=== PATIENT | male | born 1960 | race Caucasian/White ===

== ENCOUNTER 2016-04-23 20:09 | Emergency (ER) | payer MEDICARE, MEDICAID ==
[2016-04-23] MEDS ORDERED: KETOROLAC 60 MG/2 ML VIAL IVP STA (20:39)
[2016-04-23] MEDS ORDERED: ONDANSETRON 4 MG/2 ML VIAL IVP STA (20:39)
[2016-04-23] MEDS ORDERED: SODIUM CHLORIDE 0.9% 1,000 ML IV ONE (20:39)
[2016-04-23] MEDS ORDERED: MAG HYDROX/AL HYDROX/SIMETH 30 ML UDC PO STA (20:40)
[2016-04-23] MEDS ORDERED: MAG HYDROX/AL HYDROX/SIMETH 30 ML UDC ONE (20:49)
[2016-04-23] MEDS ORDERED: KETOROLAC 30 MG/ML VIAL ONE (20:49)
[2016-04-23] MEDS ORDERED: ONDANSETRON 4 MG/2 ML VIAL ONE (20:49)
[2016-04-23] MEDS ORDERED: IOPAMIDOL-300 100 ML VIAL IVP ONE (21:51)
[2016-04-23] MEDS ORDERED: DICYCLOMINE 10 MG CAPSULE PO STA (23:03)
[2016-04-23] MEDS ORDERED: ONDANSETRON ODT 4 MG Prepack 2 TL PRN (23:03)
[2016-04-23] MEDS ORDERED: DICYCLOMINE 10 MG CAPSULE PO ONE (23:07)
[2016-04-23] MEDS ORDERED: ONDANSETRON ODT 4 MG Prepack 2 TL ONE (23:07)
== END 2016-04-23 23:22 | disposition home or self-care (01) ==
DX: A09 Infectious gastroenteritis and colitis, unspecified (principal); K21.9 Gastro-esophageal reflux disease without esophagitis; I10 Essential (primary) hypertension; E11.9 Type 2 diabetes mellitus without complications; E78.00 Pure hypercholesterolemia, unspecified; Z79.4 Long term (current) use of insulin; Z79.82 Long term (current) use of aspirin
CPT/HCPCS: 36415; 74177; 80053; 82009; 83690; 83735; 84484; 85025; 93005; 93010; 96374; 96375; 99283; 99284; A9270; Q9967

== ENCOUNTER 2016-04-25 12:18 | Emergency (ER) | payer MEDICARE, MEDICAID | END 2016-04-25 14:15 | disposition home or self-care (01) | DX: R19.7 Diarrhea, unspecified (principal); E11.9 Type 2 diabetes mellitus without complications; I10 Essential (primary) hypertension; E78.00 Pure hypercholesterolemia, unspecified; Z79.4 Long term (current) use of insulin; Z79.82 Long term (current) use of aspirin ==

== ENCOUNTER 2016-04-27 05:55 | Day surgery (SDC) | payer MEDICARE, MEDICAID ==
[2016-04-27] MEDS ORDERED: LACTATED RINGERS 1,000 ML IV ONE ×2 (06:55→07:45)
[2016-04-27] MEDS ORDERED: DEXTROSE 50% ABBOJECT 25 GM/50 ML SYRINGE ONE (06:57)
[2016-04-27] MEDS ORDERED: MIDAZOLAM 2 MG/2 ML VIAL IVP ONE (07:30)
[2016-04-27] MEDS ORDERED: fentaNYL 250 MCG/5 ML VIAL IVP ONE (07:30)
== END 2016-04-27 05:56 | disposition home or self-care (01) ==
PROC: 0DBL8ZZ Excision of Transverse Colon, Via Natural or Artificial Opening Endoscopic (ICD-10-PCS; 2016-04-27)
PROC: 0DBM8ZZ Excision of Descending Colon, Via Natural or Artificial Opening Endoscopic (ICD-10-PCS; 2016-04-27)
PROC: 0DBN8ZZ Excision of Sigmoid Colon, Via Natural or Artificial Opening Endoscopic (ICD-10-PCS; 2016-04-27)
PROC: 0DBH8ZZ Excision of Cecum, Via Natural or Artificial Opening Endoscopic (ICD-10-PCS; 2016-04-27)
PROC: 0DBB8ZX Excision of Ileum, Via Natural or Artificial Opening Endoscopic, Diagnostic (ICD-10-PCS; 2016-04-27)
PROC: 0DBE8ZX Excision of Large Intestine, Via Natural or Artificial Opening Endoscopic, Diagnostic (ICD-10-PCS; 2016-04-27)
PROC: 0DBP8ZX Excision of Rectum, Via Natural or Artificial Opening Endoscopic, Diagnostic (ICD-10-PCS; 2016-04-27)
PROC: 0DBK8ZZ Excision of Ascending Colon, Via Natural or Artificial Opening Endoscopic (ICD-10-PCS; principal; 2016-04-27 07:30)
DX: Z12.11 Encounter for screening for malignant neoplasm of colon (principal); D12.4 Benign neoplasm of descending colon; D12.5 Benign neoplasm of sigmoid colon; D12.3 Benign neoplasm of transverse colon; D12.0 Benign neoplasm of cecum; D12.2 Benign neoplasm of ascending colon; Z80.0 Family history of malignant neoplasm of digestive organs; Z87.891 Personal history of nicotine dependence
CPT/HCPCS: 45380; J3010; J7120

== ENCOUNTER 2016-05-06 21:17 | Emergency (ER) | payer MEDICARE, MEDICAID | END 2016-05-06 23:21 | disposition home or self-care (01) | DX: E11.65 Type 2 diabetes mellitus with hyperglycemia (principal); E11.51 Type 2 diabetes mellitus with diabetic peripheral angiopathy without gangrene; Z79.4 Long term (current) use of insulin; R23.3 Spontaneous ecchymoses; I10 Essential (primary) hypertension; M06.9 Rheumatoid arthritis, unspecified; Z79.82 Long term (current) use of aspirin ==

== ENCOUNTER 2016-10-28 15:30 | Outpatient (CLI) | payer MEDICARE, MEDICAID ==
--- NOTE | 2016-10-29 12:31 | XRAY Report ---
THREE VIEW LEFT FOOT: 10/28/2016 CLINICAL INDICATION: Pain. FINDINGS: AP, lateral, and oblique views of the left foot demonstrate no evidence of acute fracture or dislocation. Degenerative changes are seen in the interphalangeal joints. No radiopaque foreign eli dy is seen in the soft tissues. IMPRESSION: OSTEOARTHRITIS. NO EVIDENCE OF ACUTE FRACTURE. JOB #: [id number] EXT JOB #:[id number]
== END 2016-10-28 15:31 | disposition home or self-care (01) ==
LOC: DI.S 15:30
PROVIDERS: ATTEND Physician Assistant
DX: M19.072 Primary osteoarthritis, left ankle and foot (principal)

== ENCOUNTER 2017-09-18 21:08 | Emergency (ER) | payer MEDICARE, MEDICAID ==
--- NOTE | 2017-09-18 21:38 | ED Physician Documentation ---
History of Present Illness - Stated complaint Stated Complaint: HIGH BLOOD SUGARS - Chief complaint Chief Complaint: General - History obtained from History obtained from: Patient, Family - History of Present Illness Timing: Today - Additonal information Additional information: presents due to hyperglycemia noted incidentally on routine at-home check of blood sugar. Family (in ED present at bedside) and patient describe good adherence to his insulin dosing as well as diet; his blood sugars have been within target range recently until today. Blood sugar this morning was 95. This afternoon it was 395 and at 6:30 PM it was 409. Family contacted PMD's office and d/w on-call covering physician who recommended patient take 10 units of fast -acting insulin and go to ED. 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 denies: Generalized weakness, Confused, Altered mental status, Headache PD PAST MEDICAL HISTORY - Past Medical History Cardiovascular: Hypertension, High cholesterol, Other Respiratory: None Endocrine/Autoimmune: Type 2 diabetes GI: GERD, Chronic diarrhea : None HEENT: Other Psych: Depression, Claustrophobia Musculoskeletal: Osteoarthritis, Rheumatoid arthritis, Hemiplegia, Other Derm: None - Past Surgical History Past Surgical History: No Ortho: Other Neuro: Other - Present Medications Home Medications: Ambulatory Orders Medication Instructions Recorded Confirmed Omeprazole 20 mg ORAL QDAC 11/26/14 05/06/16 Atorvastatin Calcium 40 mg PO QPM 06/09/15 05/06/16 Aspirin 1 tab PO DAILY 02/13/16 05/06/16 Insulin Glargine,Hum.rec.anlog 90 unit SQ QDBREAKFAST 03/10/16 05/06/16 [Saranya Bunch] Furosemide [Lasix] 20 mg PO ONCE 05/06/16 05/06/16 - Allergies Allergies/Adverse Reactions: Allergies Allergy/AdvReac Type Severity Reaction Status Date / Time No Known Drug Allergies Allergy Verified 04/23/16 20:17 - Social History Does the pt smoke?: No Smoking Status: Never smoker Does the pt drink ETOH?: No Does the pt have substance abuse?: No - Immunizations Immunizations are current?: Yes - POLST Patient has POLST: No PD ED PE NORMAL - Vitals Vital signs reviewed: Yes - General General: Alert and oriented X 3, No acute distress, Well developed/nourished - Cardiac Cardiac: RRR, No murmur - Respiratory Respiratory: No respiratory distress, Clear bilaterally - Abdomen Abdomen: Soft, Non tender - Derm Derm: Normal color, Warm and dry - Extremities Extremities: No edema - Neuro Neuro: Alert and oriented X 3 Eye Opening: Spontaneous Motor: Obeys Commands Verbal: Oriented GCS Score: 15 Results - Vitals Vitals: Vital Signs - 24 hr 09/18/17 09/18/17 21:11 23:33 Temperature 36.0 C L Heart Rate 57 L 56 L Respiratory 18 18 Rate Blood Pressure 161/72 H 141/81 H O2 Saturation 98 95 Oxygen O2 Source Room air - Labs Labs: Laboratory Tests 09/18/17 09/18/17 09/18/17 21:18 21:18 21:18 WBC 9.4 RBC 4.95 Hgb 13.9 L Hct 43.5 MCV 88.0 MCH 28.1 MCHC 31.9 L RDW 14.4 Plt Count 197 MPV 9.0 Neut # (Auto) 5.7 Lymph # (Auto) 2.6 [place] # (Auto) 0.6 Eos # (Auto) 0.3 Baso # (Auto) 0.1 Absolute Nucleated RBC 0.00 Nucleated RBC % 0.0 Sodium 132 L Potassium 3.7 Chloride 100 L Carbon Dioxide 26 Anion Gap 6.0 BUN 16 Creatinine 0.9 Estimated GFR (MDRD) 86 L Glucose 339 H POC Whole Bld Glucose Calcium 8.3 L Total Bilirubin 0.6 AST 20 ALT 24 Alkaline Phosphatase 78 Total Protein 6.8 Albumin 3.5 Globulin 3.3 Albumin/Globulin Ratio 1.1 Urine Color Urine Clarity Urine pH Ur Specific [place] Urine Protein Urine Glucose (UA) Urine Ketones Urine Occult Blood Urine Nitrite Urine Bilirubin Urine Urobilinogen Ur Leukocyte Esterase Ur Microscopic Review Urine Culture Comments Serum Ketones NEGATIVE 09/18/17 09/18/17 21:19 22:12 WBC RBC Hgb Hct MCV MCH MCHC RDW Plt Count MPV Neut # (Auto) Lymph # (Auto) [place] # (Auto) Eos # (Auto) Baso # (Auto) Absolute Nucleated RBC Nucleated RBC % Sodium Potassium Chloride Carbon Dioxide Anion Gap BUN Creatinine Estimated GFR (MDRD) Glucose POC Whole Bld Glucose 320 H Calcium Total Bilirubin AST ALT Alkaline Phosphatase Total Protein Albumin Globulin Albumin/Globulin Ratio Urine Color YELLOW Urine Clarity CLEAR Urine pH 5.0 Ur Specific [place] 1.010 Urine Protein NEGATIVE Urine Glucose (UA) >=1000 H Urine Ketones NEGATIVE Urine Occult Blood NEGATIVE Urine Nitrite NEGATIVE Urine Bilirubin NEGATIVE Urine Urobilinogen 0.2 (NORMAL) Ur Leukocyte Esterase NEGATIVE Ur Microscopic Review NOT INDICATED Urine Culture Comments NOT INDICATED Serum Ketones PD MEDICAL DECISION MAKING - ED course Complexity details: reviewed results, re-evaluated patient, considered differential, d/w patient, d/w family - Sepsis Event Vital Signs: Vital Signs - 24 hr 09/18/17 09/18/17 21:11 23:33 Temperature 36.0 C L Heart Rate 57 L 56 L Respiratory 18 18 Rate Blood Pressure 161/72 H 141/81 H O2 Saturation 98 95 Oxygen O2 Source Room air Departure - Departure Disposition: 01 Home, Self Care Clinical Impression: Hyperglycemia Condition: Good Instructions: ED Hyperglycemia Diabetic Follow-Up: Basilia Schreiber PA [Primary Care Provider] - Discharge Date/Time: 09/18/17 23:44
[2017-09-18 21:39] LABS: BASOPHILS # (AUTO) 0.1 10^3/uL (0.0-0.1); EOSINOPHILS # (AUTO) 0.3 10^3/uL (0.0-0.7); EOSINOPHILS % (AUTO) 3.1 %; HGB - HEMOGLOBIN 13.9 g/dL (14.0-18.0); LYMPHOCYTES # (AUTO) 2.6 10^3/uL (1.5-3.5); LYMPHOCYTES % (AUTO) 28.1 %; MEAN CORPUSCULAR HEMOGLOBIN 28.1 pg (27.0-31.0); MEAN CORPUSCULAR HGB CONC 31.9 g/dL (32.0-36.0); MONOCYTES # (AUTO) 0.6 10^3/uL (0.0-1.0); MONOCYTES % (AUTO) 6.7 %; NEUTROPHILS # (AUTO) 5.7 10^3/uL (1.5-6.6); NEUTROPHILS % (AUTO) 61.1 %; PLT - PLATELET COUNT 197 10^3/uL (130-450); RED BLOOD COUNT 4.95 10^6/uL (4.70-6.10); RED CELL DISTRIBUTION WIDTH 14.4 % (12.0-15.0); WHITE BLOOD COUNT 9.4 x10^3/uL (4.8-10.8)
[2017-09-18 21:48] LABS: ALBUMIN 3.5 g/dL (3.2-5.5); ALBUMIN/GLOBULIN RATIO 1.1 (1.0-2.2); BILIRUBIN,TOTAL 0.6 mg/dL (0.2-1.0); CALCIUM 8.3 mg/dL (8.5-10.3); CREATININE 0.9 mg/dL (0.6-1.2); TOTAL PROTEIN 6.8 g/dL (6.7-8.2)
[2017-09-18 22:19] LABS: BILIRUBIN,URINE NEGATIVE (NEGATIVE); GLUCOSE, URINE (UA) >=1000 mg/dL (NEGATIVE); KETONES,URINE (UA) NEGATIVE (NEGATIVE); LEUKOCYTE ESTERASE, URINE NEGATIVE (NEGATIVE); NITRITE,URINE NEGATIVE (NEGATIVE); OCCULT BLOOD,URINE NEGATIVE (NEGATIVE); PROTEIN,URINE NEGATIVE (NEGATIVE); UROBILINOGEN,URINE 0.2 (NORMAL) E.U./dL (NORMAL)
[2017-09-18 22:20] LABS: CLARITY,URINE CLEAR (CLEAR)
[2017-09-18 23:33] VITALS: BP 141/81
== END 2017-09-18 23:44 | disposition home or self-care (01) ==
LOC: ED 21:08
DX: E11.65 Type 2 diabetes mellitus with hyperglycemia (principal); I10 Essential (primary) hypertension; E78.00 Pure hypercholesterolemia, unspecified; G81.90 Hemiplegia, unspecified affecting unspecified side; Z79.4 Long term (current) use of insulin
CPT/HCPCS: 36415; 80053; 81001; 81003; 82009; 85025; 87086; 99283

== ENCOUNTER 2018-01-08 19:04 | Emergency (ER) | payer MEDICARE, MEDICAID ==
[2018-01-08] MEDS ORDERED: SODIUM CHLORIDE 0.9% 1,000 ML IV ONE (19:36)
--- NOTE | 2018-01-08 19:39 | ED Physician Documentation ---
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 He lives with his sister in [place]. For the last 3 weeks he has had diarrhea and urinary frequency and some incontinence. No fevers. They think because of fluid loss he became syncopal today and fell injuring his tailb one. No other injuries. They say he has been unsteady and falling more recently as well.) Review of Systems Ten Systems: 10 systems reviewed and negative Constitutional: denies: Fever, Chills Cardiac: denies: Chest pain / pressure, Palpitations Respiratory: denies: Dyspnea, Cough PD PAST MEDICAL HISTORY - Past Medical History Cardiovascular: Hypertension, High cholesterol, Other Respiratory: None Endocrine/Autoimmune: Type 2 diabetes GI: GERD, Chronic diarrhea : None HEENT: Other Psych: Depression, Claustrophobia Musculoskeletal: Osteoarthritis, Rheumatoid arthritis, Hemiplegia, Other Derm: None - Past Surgical History Past Surgical History: No Ortho: Other Neuro: Other - Present Medications Home Medications: Ambulatory Orders Medication Instructions Recorded Confirmed Omeprazole 20 mg ORAL QDAC 11/26/14 05/06/16 Atorvastatin Calcium 40 mg PO QPM 06/09/15 05/06/16 Aspirin 1 tab PO DAILY 02/13/16 05/06/16 Insulin Glargine,Hum.rec.anlog 90 unit SQ QDBREAKFAST 03/10/16 05/06/16 [Saranya Bunch] Furosemide [Lasix] 20 mg PO ONCE 05/06/16 05/06/16 Stool 1 unit TD ONCE #1 01/08/18 - Allergies Allergies/Adverse Reactions: Allergies Allergy/AdvReac Type Severity Reaction Status Date / Time No Known Drug Allergies Allergy Verified 04/23/16 20:17 - Social History Does the pt smoke?: No Smoking Status: Never smoker Does the pt drink ETOH?: No Does the pt have substance abuse?: No - Immunizations Immunizations are current?: Yes - POLST Patient has POLST: No PD ED PE NORMAL - Vitals Vital signs reviewed: Yes - General General: No acute distress, Well developed/nourished, Other (He has some cognitive delay but is cooperative.) - HEENT HEENT: PERRL, EOMI - Neck Neck: Supple, no meningeal sign, No bony TTP - Cardiac Cardiac: RRR, No murmur - Respiratory Respiratory: No respiratory distress, Clear bilaterally - Abdomen Abdomen: Normal bowel sounds, Soft, Non tender - Back Back: No CVA TTP, No spinal TTP - Extremities Extremities: No edema, No calf tenderness / cord - Neuro Eye Opening: Spontaneous Motor: Obeys Commands Verbal: Oriented GCS Score: 15 - Psych Psych: Normal mood, Normal affect Results - Vitals Vitals: Vital Signs - 24 hr 01/08/18 19:12 Temperature 36.9 C Heart Rate 78 Respiratory 18 Rate Blood Pressure 124/72 O2 Saturation 95 Oxygen O2 Source Room air - Labs Labs: Laboratory Tests 01/08/18 01/08/18 01/08/18 19:16 19:30 19:44 WBC 10.6 RBC 5.10 Hgb 14.3 Hct 43.5 MCV 85.3 MCH 28.1 MCHC 32.9 RDW 14.0 Plt Count 254 MPV 8.7 Neut # (Auto) 7.2 H Lymph # (Auto) 2.3 [place] # (Auto) 0.5 Eos # (Auto) 0.4 Baso # (Auto) 0.1 Absolute Nucleated RBC 0.02 Nucleated RBC % 0.2 Sodium Potassium Chloride Carbon Dioxide Anion Gap BUN Creatinine Estimated GFR (MDRD) Glucose POC Whole Bld Glucose 314 H Calcium Total Bilirubin AST ALT Alkaline Phosphatase Total Protein Albumin Globulin Albumin/Globulin Ratio Lipase Urine Color YELLOW Urine Clarity CLEAR Urine pH 5.5 Ur Specific [place] 1.020 Urine Protein NEGATIVE Urine Glucose (UA) >=1000 H Urine Ketones NEGATIVE Urine Occult Blood NEGATIVE Urine Nitrite NEGATIVE Urine Bilirubin NEGATIVE Urine Urobilinogen 0.2 (NORMAL) Ur Leukocyte Esterase NEGATIVE Ur Microscopic Review NOT INDICATED Urine Culture Comments NOT INDICATED 01/08/18 19:44 WBC RBC Hgb Hct MCV MCH MCHC RDW Plt Count MPV Neut # (Auto) Lymph # (Auto) [place] # (Auto) Eos # (Auto) Baso # (Auto) Absolute Nucleated RBC Nucleated RBC % Sodium 139 Potassium 4.2 Chloride 104 Carbon Dioxide 26 Anion Gap 9.0 BUN 28 H Creatinine 1.0 Estimated GFR (MDRD) 76 L Glucose 316 H POC Whole Bld Glucose Calcium 9.2 Total Bilirubin 0.4 AST 17 ALT 25 Alkaline Phosphatase 98 Total Protein 7.7 Albumin 3.9 Globulin 3.8 Albumin/Globulin Ratio 1.0 Lipase 30 Urine Color Urine Clarity Urine pH Ur Specific [place] Urine Protein Urine Glucose (UA) Urine Ketones Urine Occult Blood Urine Nitrite Urine Bilirubin Urine Urobilinogen Ur Leukocyte Esterase Ur Microscopic Review Urine Culture Comments - Rads (name of study) Sacrum XR Radiology: EMP read contemporaneously (Acute nondisplaced transverse S5 fracture) PD MEDICAL DECISION MAKING - ED course ED course: 57-year-old gentleman with subacute diarrhea and uncontrolled diabetes. Workup demonstrates prerenal azotemia here. He was unable to produce a stool sample here. He was given an outpatient requisition for same. Administer 2 L of IV fluids here with improvement in how he feels. - Sepsis Event Vital Signs: Vital Signs - 24 hr 01/08/18 19:12 Temperature 36.9 C Heart Rate 78 Respiratory 18 Rate Blood Pressure 124/72 O2 Saturation 95 Oxygen O2 Source Room air Departure - Departure Disposition: 01 Home, Self Care Clinical Impression: Dehydration Sacral fracture Qualifiers: Encounter type: initial encounter Zone of sacrum fracture: unspecified portion of sacrum Fracture type: closed Qualified Code(s): S32.10XA - Unspecified fracture of sacrum, initial encounter for closed fracture Diarrhea Qualifiers: Diarrhea type: presumed infectious Qualified Code(s): R19.7 - Diarrhea, unspecified Condition: Good Record reviewed to determine appropriate education?: Yes Instructions: ED Fx Coccyx, ED Dehydration Prescriptions: Stool 1 unit TD ONCE #1 Comments: Call your doctor to arrange a follow-up appointment, make the next available appointment. In the interim, return anytime if worse or if new symptoms develop. Drop a stool sample off with the [facility] when you are able.
[2018-01-08 19:49] LABS: BILIRUBIN,URINE NEGATIVE (NEGATIVE); GLUCOSE, URINE (UA) >=1000 mg/dL (NEGATIVE); KETONES,URINE (UA) NEGATIVE (NEGATIVE); LEUKOCYTE ESTERASE, URINE NEGATIVE (NEGATIVE); NITRITE,URINE NEGATIVE (NEGATIVE); OCCULT BLOOD,URINE NEGATIVE (NEGATIVE); PH,URINE 5.5 PH (5.0-7.5); PROTEIN,URINE NEGATIVE (NEGATIVE); UROBILINOGEN,URINE 0.2 (NORMAL) E.U./dL (NORMAL)
[2018-01-08 19:49] LABS: BASOPHILS # (AUTO) 0.1 10^3/uL (0.0-0.1); BASOPHILS % (AUTO) 0.6 %; EOSINOPHILS # (AUTO) 0.4 10^3/uL (0.0-0.7); EOSINOPHILS % (AUTO) 4.2 %; HGB - HEMOGLOBIN 14.3 g/dL (14.0-18.0); LYMPHOCYTES # (AUTO) 2.3 10^3/uL (1.5-3.5); LYMPHOCYTES % (AUTO) 21.7 %; MEAN CORPUSCULAR HEMOGLOBIN 28.1 pg (27.0-31.0); MEAN CORPUSCULAR HGB CONC 32.9 g/dL (32.0-36.0); MEAN CORPUSCULAR VOLUME 85.3 fL (80.0-94.0); MEAN PLATELET VOLUME 8.7 fL (7.4-11.4); MONOCYTES # (AUTO) 0.5 10^3/uL (0.0-1.0); MONOCYTES % (AUTO) 4.9 %; NEUTROPHILS # (AUTO) 7.2 10^3/uL (1.5-6.6); NEUTROPHILS % (AUTO) 68.6 %; PLT - PLATELET COUNT 254 10^3/uL (130-450); WHITE BLOOD COUNT 10.6 x10^3/uL (4.8-10.8)
[2018-01-08 19:56] LABS: CLARITY,URINE CLEAR (CLEAR)
[2018-01-08 20:01] LABS: ALBUMIN 3.9 g/dL (3.2-5.5); BILIRUBIN,TOTAL 0.4 mg/dL (0.2-1.0); CALCIUM 9.2 mg/dL (8.5-10.3); TOTAL PROTEIN 7.7 g/dL (6.7-8.2)
--- NOTE | 2018-01-08 20:48 | XRAY Report ---
Reason: back inj Procedure Date: 01/08/2018 Accession Number: [id number] / [id number] Procedure: XR - Sacrum/Coccyx CPT Code: FULL RESULT: EXAM: SACRUM AND COCCYX RADIOGRAPHY EXAM DATE: 01/08/2018 08:18 PM. HISTORY: Coccyx pain after ground level fall today. COMPARISONS: ABDOMEN/PELVIS W/ 04/23/2016 9:39 PM. TECHNIQUE: 3 views. FINDINGS: Alignment: Normal. The sacrum and coccyx are normally aligned. Bones: Nondisplaced transverse fracture through the S5 sacral segment. Joints: Normal. The sacroiliac joints and visualized hips are within normal limits. Soft Tissues: Unremarkable. IMPRESSION: Acute nondisplaced transverse S5 fracture. RADIA
[2018-01-08] MEDS ORDERED: LACTATED RINGERS 1,000 ML IV STA (20:58)
[2018-01-08 22:00] VITALS: BP 147/95
== END 2018-01-08 22:01 | disposition home or self-care (01) ==
LOC: ED 19:04
DX: E86.0 Dehydration (principal); S32.10XA Unspecified fracture of sacrum, initial encounter for closed fracture; W18.30XA Fall on same level, unspecified, initial encounter; R19.7 Diarrhea, unspecified; E11.9 Type 2 diabetes mellitus without complications; Z79.4 Long term (current) use of insulin; I10 Essential (primary) hypertension; E78.00 Pure hypercholesterolemia, unspecified; Z91.81 History of falling; Z87.820 Personal history of traumatic brain injury
CPT/HCPCS: 36415; 72220; 80053; 81003; 83690; 85025; 96360; 99283; J7120; 81001; 87086

== ENCOUNTER 2018-02-06 15:11 | Emergency (ER) | payer MEDICARE, MEDICAID ==
[2018-02-06 16:06] LABS: BASOPHILS # (AUTO) 0.1 10^3/uL (0.0-0.1); BASOPHILS % (AUTO) 0.9 %; EOSINOPHILS # (AUTO) 0.3 10^3/uL (0.0-0.7); EOSINOPHILS % (AUTO) 3.1 %; HGB - HEMOGLOBIN 14.6 g/dL (14.0-18.0); LYMPHOCYTES # (AUTO) 2.1 10^3/uL (1.5-3.5); MEAN CORPUSCULAR HEMOGLOBIN 27.8 pg (27.0-31.0); MEAN CORPUSCULAR HGB CONC 32.3 g/dL (32.0-36.0); MEAN PLATELET VOLUME 8.8 fL (7.4-11.4); MONOCYTES # (AUTO) 0.5 10^3/uL (0.0-1.0); MONOCYTES % (AUTO) 6.2 %; NEUTROPHILS # (AUTO) 5.5 10^3/uL (1.5-6.6); NEUTROPHILS % (AUTO) 64.8 %; PLT - PLATELET COUNT 220 10^3/uL (130-450); RED BLOOD COUNT 5.24 10^6/uL (4.70-6.10); RED CELL DISTRIBUTION WIDTH 14.2 % (12.0-15.0); WHITE BLOOD COUNT 8.5 x10^3/uL (4.8-10.8)
[2018-02-06 16:18] LABS: ALBUMIN 4.1 g/dL (3.2-5.5); ALBUMIN/GLOBULIN RATIO 1.1 (1.0-2.2); BILIRUBIN,TOTAL 0.9 mg/dL (0.2-1.0); CALCIUM 8.7 mg/dL (8.5-10.3); CREATININE 0.9 mg/dL (0.6-1.2); TOTAL PROTEIN 7.7 g/dL (6.7-8.2)
[2018-02-06 17:42] LABS: BILIRUBIN,URINE NEGATIVE (NEGATIVE); GLUCOSE, URINE (UA) 250 mg/dL (NEGATIVE); KETONES,URINE (UA) NEGATIVE (NEGATIVE); LEUKOCYTE ESTERASE, URINE TRACE (NEGATIVE); NITRITE,URINE NEGATIVE (NEGATIVE); OCCULT BLOOD,URINE NEGATIVE (NEGATIVE); PH,URINE 5.5 PH (5.0-7.5); PROTEIN,URINE NEGATIVE (NEGATIVE); UROBILINOGEN,URINE 0.2 (NORMAL) E.U./dL (NORMAL)
[2018-02-06] MEDS ORDERED: cephALEXin 250 MG CAPSULE PO STA (17:46)
[2018-02-06 17:52] VITALS: BP 153/82
[2018-02-06 17:56] LABS: BACTERIA,URINE None Seen /HPF (None Seen); CLARITY,URINE CLEAR (CLEAR); RBC,URINE 0-5 /HPF (0-5); SQUAMOUS EPITHELIAL CELL,UR NONE SEEN (<= Few)
[2018-02-06] MEDS ORDERED: OXYBUTYNIN 5MG TABLET PO STA (18:14)
--- NOTE | 2018-02-06 18:18 | ED Physician Documentation ---
PD HPI MALE - Stated complaint Stated Complaint: MALE - Chief complaint Chief Complaint: General - History obtained from History obtained from: Patient, Family - History of Present Illness Timing - onset: Today Timing - duration: Days (1) Timing - details: Abrupt onset, Still present Associated symptoms: Dysuria. No: Genital sore / lesion, Testiclar pain, Scrotal swelling, Indwelling catheter PD HPI MALE CONTRIB FACTORS: No: Sexually active Similar symptoms before: Diagnosis (utis) Recently seen: Not recently seen Review of Systems Constitutional: reports: Myalgias. denies: Fever, Chills Nose: denies: Rhinorrhea / runny nose, Congestion Throat: denies: Sore throat Cardiac: denies: Chest pain / pressure Respiratory: denies: Dyspnea, Cough GI: reports: Nausea. denies: Abdominal Pain, Vomiting, Diarrhea Skin: reports: Abrasion (s), Bite / sting Musculoskeletal: reports: Neck pain Neurologic: reports: Generalized weakness. denies: Focal weakness, Numbness PD PAST MEDICAL HISTORY - Past Medical History Cardiovascular: Hypertension, High cholesterol, Other Respiratory: None Endocrine/Autoimmune: Type 2 diabetes GI: GERD, Chronic diarrhea : None HEENT: Other Psych: Depression, Claustrophobia Musculoskeletal: Osteoarthritis, Rheumatoid arthritis, Hemiplegia, Other Derm: None - Past Surgical History Past Surgical History: Yes Ortho: Other Neuro: Other - Present Medications Home Medications: Ambulatory Orders Medication Instructions Recorded Confirmed Omeprazole 20 mg ORAL QDAC 11/26/14 05/06/16 Atorvastatin Calcium 40 mg PO QPM 06/09/15 05/06/16 Aspirin 1 tab PO DAILY 02/13/16 05/06/16 Insulin Glargine,Hum.rec.anlog 90 unit SQ QDBREAKFAST 03/10/16 05/06/16 [Toujeff Solostar] Furosemide [Lasix] 20 mg PO ONCE 05/06/16 05/06/16 Stool 1 unit TD ONCE #1 01/08/18 Cephalexin [Keflex] 500 mg PO TID #21 capsule 02/06/18 Oxybutynin [Ditropan] 5 mg PO BID #15 tablet 02/06/18 - Allergies Allergies/Adverse Reactions: Allergies Allergy/AdvReac Type Severity Reaction Status Date / Time No Known Drug Allergies Allergy Verified 02/06/18 15:43 - Social History Does the pt smoke?: No Smoking Status: Never smoker Does the pt drink ETOH?: No Does the pt have substance abuse?: No - Immunizations Immunizations are current?: Yes - POLST Patient has POLST: No PD ED PE NORMAL - Vitals Vital signs reviewed: Yes - General General: Alert and oriented X 3, No acute distress, Well developed/nourished - HEENT HEENT: Ears normal, Moist mucous membranes, Pharynx benign - Neck Neck: Supple, no meningeal sign - Cardiac Cardiac: RRR, No murmur - Respiratory Respiratory: No respiratory distress, Clear bilaterally Results - Vitals Vitals: Oxygen O2 Source Room air - Labs Labs: Microbiology 02/06/18 16:00 Urine Culture - Final Urine,Clean Catch Escherichia Coli Laboratory Tests 02/06/18 02/06/18 02/06/18 15:48 16:00 16:00 WBC 8.5 RBC 5.24 Hgb 14.6 Hct 45.1 MCV 86.0 MCH 27.8 MCHC 32.3 RDW 14.2 Plt Count 220 MPV 8.8 Neut # (Auto) 5.5 Lymph # (Auto) 2.1 [place] # (Auto) 0.5 Eos # (Auto) 0.3 Baso # (Auto) 0.1 Absolute Nucleated RBC 0.00 Nucleated RBC % 0.0 Sodium 135 Potassium 3.7 Chloride 102 Carbon Dioxide 25 Anion Gap 8.0 BUN 22 H Creatinine 0.9 Estimated GFR (MDRD) 86 L Glucose 201 H POC Whole Bld Glucose 219 H Calcium 8.7 Total Bilirubin 0.9 AST 19 ALT 27 Alkaline Phosphatase 102 Total Protein 7.7 Albumin 4.1 Globulin 3.6 Albumin/Globulin Ratio 1.1 Lipase 28 Urine Color Urine Clarity Urine pH Ur Specific [place] Urine Protein Urine Glucose (UA) Urine Ketones Urine Occult Blood Urine Nitrite Urine Bilirubin Urine Urobilinogen Ur Leukocyte Esterase Urine RBC Urine WBC Ur Squamous Epith Cells Urine Bacteria Ur Microscopic Review Urine Culture Comments 02/06/18 16:00 WBC RBC Hgb Hct MCV MCH MCHC RDW Plt Count MPV Neut # (Auto) Lymph # (Auto) [place] # (Auto) Eos # (Auto) Baso # (Auto) Absolute Nucleated RBC Nucleated RBC % Sodium Potassium Chloride Carbon Dioxide Anion Gap BUN Creatinine Estimated GFR (MDRD) Glucose POC Whole Bld Glucose Calcium Total Bilirubin AST ALT Alkaline Phosphatase Total Protein Albumin Globulin Albumin/Globulin Ratio Lipase Urine Color YELLOW Urine Clarity CLEAR Urine pH 5.5 Ur Specific [place] <=1.005 Urine Protein NEGATIVE Urine Glucose (UA) 250 H Urine Ketones NEGATIVE Urine Occult Blood NEGATIVE Urine Nitrite NEGATIVE Urine Bilirubin NEGATIVE Urine Urobilinogen 0.2 (NORMAL) Ur Leukocyte Esterase TRACE H Urine RBC 0-5 Urine WBC 6-10 H Ur Squamous Epith Cells NONE SEEN Urine Bacteria None Seen Ur Microscopic Review INDICATED Urine Culture Comments INDICATED PD MEDICAL DECISION MAKING - ED course Complexity details: re-evaluated patient, considered differential, d/w patient, d/w family Departure - Departure Disposition: Home, Self Care Clinical Impression: Dysuria Condition: Stable Record reviewed to determine appropriate education?: Yes Instructions: ED Dysuria Uncertain Cause, ED UTI Cystitis Male Follow-Up: Basilia Schreiber PA [Primary Care Provider] - Prescriptions: Cephalexin [Keflex] 500 mg PO TID #21 capsule Oxybutynin [Ditropan] 5 mg PO BID #15 tablet Comments: There is suggestion of bladder infection on the urine test. The bladder scanner did not show an excessive amount of urine in the bladder so I do not think it is retention per se. There could be some bladder spasming occurring we can try oxybutynin twice daily for bladder spasms. We will also treat with cephalexin for a week for potential infection. Recheck if not improved over the next few days. Discharge Date/Time: 02/06/18 18:35
== END 2018-02-06 18:35 | disposition home or self-care (01) ==
LOC: ED 15:11
DX: R30.0 Dysuria (principal); I10 Essential (primary) hypertension; E78.00 Pure hypercholesterolemia, unspecified; E11.9 Type 2 diabetes mellitus without complications; Z79.4 Long term (current) use of insulin; Z79.82 Long term (current) use of aspirin
CPT/HCPCS: 36415; 80053; 81001; 83690; 85025; 87086; 87181; 99283; A9270; 81003

== ENCOUNTER 2018-02-11 21:20 | Emergency (ER) | payer MEDICARE, MEDICAID ==
[2018-02-11 21:52] LABS: BASOPHILS # (AUTO) 0.1 10^3/uL (0.0-0.1); EOSINOPHILS # (AUTO) 0.3 10^3/uL (0.0-0.7); HGB - HEMOGLOBIN 14.4 g/dL (14.0-18.0); LYMPHOCYTES % (AUTO) 22.7 %; MEAN CORPUSCULAR HEMOGLOBIN 28.3 pg (27.0-31.0); MEAN CORPUSCULAR VOLUME 85.8 fL (80.0-94.0); MONOCYTES # (AUTO) 0.6 10^3/uL (0.0-1.0); MONOCYTES % (AUTO) 6.3 %; PLT - PLATELET COUNT 222 10^3/uL (130-450); RED BLOOD COUNT 5.07 10^6/uL (4.70-6.10); RED CELL DISTRIBUTION WIDTH 15.3 % (12.0-15.0)
--- NOTE | 2018-02-11 22:02 | ED Physician Documentation ---
PD HPI ABD PAIN - Stated complaint Stated Complaint: ABD PAIN - Chief complaint Chief Complaint: Abd Pain - History obtained from History obtained from: Patient, Family - History of Present Illness Timing - onset: Today Pain level now: 3 Quality: Cramping Location: All over / everywhere Associated symptoms: No: Fever, Vomiting - Additional information Additional information: c/o high blood sugar, 451 at 6PM tonight. he was then given insulin, as he was about to have dinner of biscuits and gravy. he subsequently had abdominal cramping, diaphoresis Review of Systems Constitutional: reports: Sweats. denies: Fever, Chills Cardiac: reports: Reviewed and negative Respiratory: reports: Reviewed and negative GI: reports: Abdominal Pain. denies: Vomiting, Diarrhea : denies: Dysuria, Frequency PD PAST MEDICAL HISTORY - Past Medical History Cardiovascular: Hypertension, High cholesterol, Other Respiratory: None Endocrine/Autoimmune: Type 2 diabetes GI: GERD, Chronic diarrhea : None HEENT: Other Psych: Depression, Claustrophobia Musculoskeletal: Osteoarthritis, Rheumatoid arthritis, Hemiplegia, Other Derm: None - Past Surgical History Past Surgical History: Yes Ortho: Other Neuro: Other - Present Medications Home Medications: Ambulatory Orders Medication Instructions Recorded Confirmed Omeprazole 20 mg ORAL QDAC 11/26/14 05/06/16 Atorvastatin Calcium 40 mg PO QPM 06/09/15 05/06/16 Aspirin 1 tab PO DAILY 02/13/16 05/06/16 Insulin Glargine,Hum.rec.anlog 90 unit SQ QDBREAKFAST 03/10/16 05/06/16 [Toujeo Solostar] Furosemide [Lasix] 20 mg PO ONCE 05/06/16 05/06/16 Stool 1 unit TD ONCE #1 01/08/18 Cephalexin [Keflex] 500 mg PO TID #21 capsule 02/06/18 Oxybutynin [Ditropan] 5 mg PO BID #15 tablet 02/06/18 - Allergies Allergies/Adverse Reactions: Allergies Allergy/AdvReac Type Severity Reaction Status Date / Time No Known Drug Allergies Allergy Verified 02/11/18 21:32 - Social History Does the pt smoke?: No Smoking Status: Never smoker Does the pt drink ETOH?: No Does the pt have substance abuse?: No - Immunizations Immunizations are current?: Yes - POLST Patient has POLST: No PD ED PE NORMAL - Vitals Vital signs reviewed: Yes - General General: Alert and oriented X 3, No acute distress, Well developed/nourished - HEENT HEENT: Moist mucous membranes - Neck Neck: Supple, no meningeal sign - Cardiac Cardiac: RRR, No murmur - Respiratory Respiratory: No respiratory distress, Clear bilaterally - Abdomen Abdomen: Normal bowel sounds, Soft, Non tender, Non distended - Derm Derm: Normal color, Warm and dry - Extremities Extremities: No edema - Neuro Neuro: Alert and oriented X 3 Eye Opening: Spontaneous Motor: Obeys Commands Verbal: Oriented GCS Score: 15 Results - Vitals Vitals: Oxygen O2 Source Room air - EKG (time done) No standard instances Rate: Rate (enter#) (74) Rhythm: NSR [place]: Normal Intervals: Normal IA QRS: LVH, Poor R wave progression Ischemia: Normal ST segments - Labs Labs: Laboratory Tests 02/11/18 02/11/18 02/11/18 21:45 21:45 21:45 WBC 9.0 RBC 5.07 Hgb 14.4 Hct 43.5 MCV 85.8 MCH 28.3 MCHC 33.0 RDW 15.3 H Plt Count 222 MPV 9.0 Neut # (Auto) 6.0 Lymph # (Auto) 2.0 [place] # (Auto) 0.6 Eos # (Auto) 0.3 Baso # (Auto) 0.1 Absolute Nucleated RBC 0.00 Nucleated RBC % 0.0 Sodium 134 L Potassium 4.5 Chloride 103 Carbon Dioxide 20 L Anion Gap 11.0 BUN 35 H Creatinine 1.1 Estimated GFR (MDRD) 69 L Glucose 426 H POC Whole Bld Glucose Calcium 9.2 Total Bilirubin 0.5 AST 23 ALT 31 Alkaline Phosphatase 101 Troponin I < 0.04 Total Protein 8.0 Albumin 4.2 Globulin 3.8 Albumin/Globulin Ratio 1.1 Lipase 27 Urine Color Urine Clarity Urine pH Ur Specific [place] Urine Protein Urine Glucose (UA) Urine Ketones Urine Occult Blood Urine Nitrite Urine Bilirubin Urine Urobilinogen Ur Leukocyte Esterase Ur Microscopic Review Urine Culture Comments Serum Ketones 02/11/18 02/11/18 02/11/18 21:45 22:00 23:05 WBC RBC Hgb Hct MCV MCH MCHC RDW Plt Count MPV Neut # (Auto) Lymph # (Auto) [place] # (Auto) Eos # (Auto) Baso # (Auto) Absolute Nucleated RBC Nucleated RBC % Sodium Potassium Chloride Carbon Dioxide Anion Gap BUN Creatinine Estimated GFR (MDRD) Glucose POC Whole Bld Glucose 373 H Calcium Total Bilirubin AST ALT Alkaline Phosphatase Troponin I Total Protein Albumin Globulin Albumin/Globulin Ratio Lipase Urine Color YELLOW Urine Clarity CLEAR Urine pH 5.5 Ur Specific [place] 1.015 Urine Protein NEGATIVE Urine Glucose (UA) >=1000 H Urine Ketones NEGATIVE Urine Occult Blood NEGATIVE Urine Nitrite NEGATIVE Urine Bilirubin NEGATIVE Urine Urobilinogen 0.2 (NORMAL) Ur Leukocyte Esterase NEGATIVE Ur Microscopic Review NOT INDICATED Urine Culture Comments NOT INDICATED Serum Ketones NEGATIVE 02/12/18 00:44 WBC RBC Hgb Hct MCV MCH MCHC RDW Plt Count MPV Neut # (Auto) Lymph # (Auto) [place] # (Auto) Eos # (Auto) Baso # (Auto) Absolute Nucleated RBC Nucleated RBC % Sodium Potassium Chloride Carbon Dioxide Anion Gap BUN Creatinine Estimated GFR (MDRD) Glucose POC Whole Bld Glucose 349 H Calcium Total Bilirubin AST ALT Alkaline Phosphatase Troponin I Total Protein Albumin Globulin Albumin/Globulin Ratio Lipase Urine Color Urine Clarity Urine pH Ur Specific [place] Urine Protein Urine Glucose (UA) Urine Ketones Urine Occult Blood Urine Nitrite Urine Bilirubin Urine Urobilinogen Ur Leukocyte Esterase Ur Microscopic Review Urine Culture Comments Serum Ketones - Rads (name of study) abd. xrays Radiology: Prelim report reviewed, See rad report PD MEDICAL DECISION MAKING - ED course Complexity details: reviewed results, re-evaluated patient, considered differential, d/w patient, d/w family Departure - Departure Disposition: 01 Home, Self Care Clinical Impression: Hyperglycemia Condition: Good Instructions: ED Hyperglycemia Diabetic Follow-Up: Basilia Schreiber PA [Primary Care Provider] - Discharge Date/Time: 02/12/18 00:56
[2018-02-11 22:03] LABS: ALBUMIN 4.2 g/dL (3.2-5.5); ALBUMIN/GLOBULIN RATIO 1.1 (1.0-2.2); BILIRUBIN,TOTAL 0.5 mg/dL (0.2-1.0); CALCIUM 9.2 mg/dL (8.5-10.3); CREATININE 1.1 mg/dL (0.6-1.2)
[2018-02-11] MEDS ORDERED: SODIUM CHLORIDE 0.9% 1,000 ML IV STA (22:20)
[2018-02-11] MEDS ORDERED: INSULIN REGULAR HUMAN 100 UNIT/1 ML 10 ML MDV IVP STA (22:22)
[2018-02-11 22:25] LABS: BILIRUBIN,URINE NEGATIVE (NEGATIVE); GLUCOSE, URINE (UA) >=1000 mg/dL (NEGATIVE); KETONES,URINE (UA) NEGATIVE (NEGATIVE); LEUKOCYTE ESTERASE, URINE NEGATIVE (NEGATIVE); NITRITE,URINE NEGATIVE (NEGATIVE); OCCULT BLOOD,URINE NEGATIVE (NEGATIVE); PH,URINE 5.5 PH (5.0-7.5); PROTEIN,URINE NEGATIVE (NEGATIVE); UROBILINOGEN,URINE 0.2 (NORMAL) E.U./dL (NORMAL)
[2018-02-11 22:33] LABS: CLARITY,URINE CLEAR (CLEAR)
--- NOTE | 2018-02-11 23:15 | XRAY Report ---
Reason: abd. pain, distention Procedure Date: 02/11/2018 Accession Number: [id number] / [id number] Procedure: XR - Abdomen Acute CPT Code: FULL RESULT: EXAM: ABDOMINAL SERIES AND PA CHEST EXAM DATE: 02/11/2018 11:01 PM. CLINICAL HISTORY: Abdomen pain and distention. COMPARISON: CHEST 2 VIEW PA/LAT 06/08/2015 7:44 PM. TECHNIQUE: 2 views abdomen and 1 view chest. FINDINGS: CHEST: Lungs/Pleura: Left base scarring, otherwise no focal opacities. No effusion or pneumothorax. Mediastinum: Within exam limitations, cardiomediastinal contour is normal. ABDOMEN: Bowel Gas Pattern: Within normal limits. No dilated loops or abnormal fluid levels. Free Air: None. Other: No bony abnormality noted. IMPRESSION: No bowel obstruction or free air. RADIA
[2018-02-12 00:41] VITALS: BP 172/83
== END 2018-02-12 00:56 | disposition home or self-care (01) ==
LOC: ED 21:20
DX: E11.65 Type 2 diabetes mellitus with hyperglycemia (principal); I44.4 Left anterior fascicular block; I10 Essential (primary) hypertension; E78.00 Pure hypercholesterolemia, unspecified; M06.9 Rheumatoid arthritis, unspecified; G81.90 Hemiplegia, unspecified affecting unspecified side; Z79.82 Long term (current) use of aspirin; Z79.4 Long term (current) use of insulin
CPT/HCPCS: 36415; 74022; 80053; 81003; 82009; 83690; 84484; 85025; 93005; 96360; 99283; 99284; J1815; 81001; 87086

== ENCOUNTER 2018-02-26 18:32 | Emergency (ER) | payer MEDICARE, MEDICAID ==
[2018-02-26] MEDS ORDERED: SODIUM CHLORIDE 0.9% 1,000 ML IV ONE (19:18)
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
[2018-02-26 19:41] LABS: BASOPHILS # (AUTO) 0.1 10^3/uL (0.0-0.1); BASOPHILS % (AUTO) 0.8 %; EOSINOPHILS # (AUTO) 0.3 10^3/uL (0.0-0.7); EOSINOPHILS % (AUTO) 3.5 %; HGB - HEMOGLOBIN 13.9 g/dL (14.0-18.0); LYMPHOCYTES # (AUTO) 2.1 10^3/uL (1.5-3.5); LYMPHOCYTES % (AUTO) 25.9 %; MEAN CORPUSCULAR HEMOGLOBIN 28.1 pg (27.0-31.0); MEAN CORPUSCULAR HGB CONC 32.4 g/dL (32.0-36.0); MEAN CORPUSCULAR VOLUME 86.7 fL (80.0-94.0); MEAN PLATELET VOLUME 9.3 fL (7.4-11.4); MONOCYTES # (AUTO) 0.5 10^3/uL (0.0-1.0); MONOCYTES % (AUTO) 5.8 %; NEUTROPHILS # (AUTO) 5.3 10^3/uL (1.5-6.6); PLT - PLATELET COUNT 182 10^3/uL (130-450); RED BLOOD COUNT 4.95 10^6/uL (4.70-6.10); RED CELL DISTRIBUTION WIDTH 14.5 % (12.0-15.0); WHITE BLOOD COUNT 8.2 x10^3/uL (4.8-10.8)
[2018-02-26 19:50] LABS: KETONES, SERUM (ACETEST) NEGATIVE (NEGATIVE)
[2018-02-26 19:57] LABS: ALBUMIN 3.9 g/dL (3.2-5.5); ALBUMIN/GLOBULIN RATIO 1.3 (1.0-2.2); ALKALINE PHOSPHATASE 86 IU/L (42-121); ALT ALANINE AMINOTRANSFERASE 29 IU/L (10-60); AST ASPARTATE AMINOTRANSFERASE 20 IU/L (10-42); BILIRUBIN,TOTAL 0.6 mg/dL (0.2-1.0); BUN - BLOOD UREA NITROGEN 24 mg/dL (6-20); CALCIUM 8.8 mg/dL (8.5-10.3); CARBON DIOXIDE - CO2 24 mmol/L (21-32); CHLORIDE 102 mmol/L (101-111); CREATININE 1.1 mg/dL (0.6-1.2); GFR - MDRD 69 (>89); GLUCOSE 368 mg/dL (70-100); LIPASE 29 U/L (22-51); SODIUM 133 mmol/L (135-145)
[2018-02-26 20:58] LABS: BILIRUBIN,URINE NEGATIVE (NEGATIVE); GLUCOSE, URINE (UA) >=1000 mg/dL (NEGATIVE); KETONES,URINE (UA) NEGATIVE (NEGATIVE); LEUKOCYTE ESTERASE, URINE NEGATIVE (NEGATIVE); NITRITE,URINE NEGATIVE (NEGATIVE); OCCULT BLOOD,URINE NEGATIVE (NEGATIVE); PROTEIN,URINE NEGATIVE (NEGATIVE); UROBILINOGEN,URINE 0.2 (NORMAL) E.U./dL (NORMAL)
[2018-02-26 21:07] LABS: BACTERIA,URINE None Seen /HPF (None Seen); CLARITY,URINE V (CLEAR); RBC,URINE 0-5 /HPF (0-5); SQUAMOUS EPITHELIAL CELL,UR RARE Squamous (<= Few); YEAST,URINE PRESENT
[2018-02-26 22:46] VITALS: BP 148/73
== END 2018-02-26 22:48 | disposition home or self-care (01) ==
LOC: ED 18:32
DX: E11.65 Type 2 diabetes mellitus with hyperglycemia (principal); Z79.4 Long term (current) use of insulin; E78.00 Pure hypercholesterolemia, unspecified; Z87.820 Personal history of traumatic brain injury
CPT/HCPCS: 36415; 80053; 81001; 82009; 83690; 85025; 99283

== ENCOUNTER 2018-03-01 21:41 | Emergency (ER) | payer MEDICARE, MEDICAID ==
[2018-03-01] MEDS ORDERED: SODIUM CHLORIDE 0.9% 1,000 ML IV ONE (22:07)
--- NOTE | 2018-03-01 22:12 | ED Physician Documentation ---
<Susannah Avila - Last Filed: 03/02/18 00:42> History of Present Illness - Stated complaint Stated Complaint: HIGH BLOOD SUGAR - Chief complaint Chief Complaint: General - History obtained from History obtained from: Patient, Family - History of Present Illness Timing: Yesterday - Additonal information Additional information: 58-year-old male with history of TBI, diabetes type 2 on insulin here with son with complain of labile blood sugar the past few days. Patient was here for the same thing a couple of days ago. Per son they check his blood sugar before eating and has been normal. However they were told to cover for any blood sugar over 300 But The regular insulin would give him a negative effect. They have been talking to his primary doctor Dr. Kessler about this. He has health sciences program coordinator appointment for next week was changed to April. Patient denies any Fever, headache, coughing, nausea, vomiting, diarrhea. Patient claims has not had a BM for 1 week. Review of Systems Ten Systems: 10 systems reviewed and negative Constitutional: denies: Fever Nose: denies: Rhinorrhea / runny nose Throat: denies: Sore throat Cardiac: denies: Chest pain / pressure Respiratory: denies: Dyspnea GI: reports: Abdominal Pain, Constipation. denies: Nausea, Vomiting, Diarrhea : denies: Dysuria, Hematuria Skin: denies: Rash Neurologic: denies: Generalized weakness PD PAST MEDICAL HISTORY - Past Medical History Cardiovascular: Hypertension, High cholesterol, Other Respiratory: None Neuro: None Endocrine/Autoimmune: Type 2 diabetes GI: GERD, Chronic diarrhea : None HEENT: Other Psych: Depression, Claustrophobia Musculoskeletal: Osteoarthritis, Rheumatoid arthritis, Hemiplegia, Other Derm: None - Past Surgical History Past Surgical History: Yes Ortho: Other Neuro: Other - Present Medications Home Medications: Ambulatory Orders Medication Instructions Recorded Confirmed RX: Omeprazole 20 mg ORAL QDAC 11/26/14 05/06/16 RX: Atorvastatin Calcium 40 mg PO QPM 06/09/15 05/06/16 RX: Aspirin 1 tab PO DAILY 02/13/16 05/06/16 Insulin Glargine,Hum.rec.anlog 130 unit SQ QDBREAKFAST 03/10/16 05/06/16 [Saranya Bunch] Cephalexin [Keflex] 500 mg PO TID #21 capsule 02/06/18 Oxybutynin [Ditropan] 5 mg PO BID #15 tablet 02/06/18 Insulin Aspart [Novolog Flexpen] 1 unit SUBQ ACHS PRN 03/01/18 03/01/18 - Allergies Allergies/Adverse Reactions: Allergies Allergy/AdvReac Type Severity Reaction Status Date / Time No Known Drug Allergies Allergy Verified 03/01/18 21:50 - Social History Does the pt smoke?: No Smoking Status: Never smoker Does the pt drink ETOH?: No Does the pt have substance abuse?: No - Immunizations Immunizations are current?: Yes - POLST Patient has POLST: No PD ED PE NORMAL - Vitals Vital signs reviewed: Yes - General General: Alert and oriented X 3, No acute distress, Well developed/nourished - HEENT HEENT: Moist mucous membranes, Pharynx benign - Neck Neck: Supple, no meningeal sign - Cardiac Cardiac: RRR, No murmur - Respiratory Respiratory: No respiratory distress, Clear bilaterally - Abdomen Abdomen: Normal bowel sounds, Soft, Non tender, Non distended - Back Back: No CVA TTP - Derm Derm: Normal color, Warm and dry - Extremities Extremities: No deformity, No tenderness to palpate, Normal ROM s pain, No edema, No calf tenderness / cord, Other (Patient eats with dirty socks and foul- smelling. One small abrasion on the right fourth digit. Left big toe nail bed with yellowish nail that has a purplish dark coloring at the base.No erythema. No drainage.) - Neuro Neuro: Alert and oriented X 3, No motor deficit, No sensory deficit, Normal speech - Psych Psych: Normal mood, Normal affect Results - Vitals Vitals: Vital Signs - 24 hr 03/01/18 03/01/18 03/02/18 21:45 23:36 00:37 Temperature 36.6 C Heart Rate 71 63 59 L Respiratory 17 18 17 Rate Blood Pressure 159/94 H 151/80 H 153/89 H O2 Saturation 92 94 93 03/02/18 03/02/18 02:13 03:36 Temperature 36.5 C Heart Rate 62 65 Respiratory 17 20 Rate Blood Pressure 125/88 H 154/95 H O2 Saturation 94 94 Oxygen O2 Source Room air - Labs Labs: Laboratory Tests 03/01/18 03/01/18 03/01/18 21:49 22:10 22:20 WBC 8.4 RBC 4.91 Hgb 13.8 L Hct 42.7 MCV 86.9 MCH 28.0 MCHC 32.2 RDW 15.0 Plt Count 197 MPV 9.4 Neut # (Auto) 5.4 Lymph # (Auto) 2.1 [place] # (Auto) 0.5 Eos # (Auto) 0.4 Baso # (Auto) 0.1 Absolute Nucleated RBC 0.01 Nucleated RBC % 0.1 Sodium Potassium Chloride Carbon Dioxide Anion Gap BUN Creatinine Estimated GFR (MDRD) Glucose POC Whole Bld Glucose 358 H Calcium Total Bilirubin AST ALT Alkaline Phosphatase Total Protein Albumin Globulin Albumin/Globulin Ratio Lipase Urine Color YELLOW Urine Clarity CLEAR Urine pH 5.5 Ur Specific [place] 1.020 Urine Protein NEGATIVE Urine Glucose (UA) >=1000 H Urine Ketones NEGATIVE Urine Occult Blood NEGATIVE Urine Nitrite NEGATIVE Urine Bilirubin NEGATIVE Urine Urobilinogen 0.2 (NORMAL) Ur Leukocyte Esterase NEGATIVE Ur Microscopic Review NOT INDICATED Urine Culture Comments NOT INDICATED Serum Ketones 03/01/18 03/02/18 03/02/18 22:20 00:16 01:30 WBC RBC Hgb Hct MCV MCH MCHC RDW Plt Count MPV Neut # (Auto) Lymph # (Auto) [place] # (Auto) Eos # (Auto) Baso # (Auto) Absolute Nucleated RBC Nucleated RBC % Sodium 134 L Potassium 3.8 Chloride 102 Carbon Dioxide 23 Anion Gap 9.0 BUN 29 H Creatinine 1.0 Estimated GFR (MDRD) 76 L Glucose 373 H POC Whole Bld Glucose 443 H 339 H Calcium 8.8 Total Bilirubin 0.5 AST 22 ALT 23 Alkaline Phosphatase 87 Total Protein 7.0 Albumin 3.9 Globulin 3.1 Albumin/Globulin Ratio 1.3 Lipase 30 Urine Color Urine Clarity Urine pH Ur Specific [place] Urine Protein Urine Glucose (UA) Urine Ketones Urine Occult Blood Urine Nitrite Urine Bilirubin Urine Urobilinogen Ur Leukocyte Esterase Ur Microscopic Review Urine Culture Comments Serum Ketones NEGATIVE 03/02/18 03:25 WBC RBC Hgb Hct MCV MCH MCHC RDW Plt Count MPV Neut # (Auto) Lymph # (Auto) [place] # (Auto) Eos # (Auto) Baso # (Auto) Absolute Nucleated RBC Nucleated RBC % Sodium Potassium Chloride Carbon Dioxide Anion Gap BUN Creatinine Estimated GFR (MDRD) Glucose POC Whole Bld Glucose 307 H Calcium Total Bilirubin AST ALT Alkaline Phosphatase Total Protein Albumin Globulin Albumin/Globulin Ratio Lipase Urine Color Urine Clarity Urine pH Ur Specific [place] Urine Protein Urine Glucose (UA) Urine Ketones Urine Occult Blood Urine Nitrite Urine Bilirubin Urine Urobilinogen Ur Leukocyte Esterase Ur Microscopic Review Urine Culture Comments Serum Ketones PD MEDICAL DECISION MAKING - ED course Complexity details: reviewed results, re-evaluated patient, considered differential (Uncontrolled diabetes, DKA, Pneumonia, UTI, constipation, obstruction), d/w patient, d/w family, d/w PMD ED course: Patient arrived with an Accu-Chek of 353 and blood glucose of 373 here in the ER. After liter fluid of NS at 00 115 patient's Accu-Chek was 443. This is the second time patient came to the emergency room for labile blood sugar control. Discussed options of observation versus going home. However because son seems to be frustrated with patient's labile blood sugar they are thinking of getting admitted for observation overnight. 00 30 I spoke to the hospitalist Dr. Mcghee who stated that patient does not require admission and does not meet criteria for admission. She will be happy to speak to the patient the son regarding his insulin regimen. Patient and son agreed to wait for the hospitalist.Signout given to the night ER doctor Long. Departure - Departure Disposition: Home, Self Care Clinical Impression: Diabetes, Uncontrolled diabetes mellitus Condition: Stable Instructions: ED Diabetes General Info, ED Hyperglycemia Diabetic Follow-Up: Basilia Schreiber PA [Primary Care Provider] - Comments: adjust your medications as discussed with Dr. Means on the instructions. Discharge Date/Time: 03/02/18 03:47 <Sahil Alves - Last Filed: 03/02/18 04:31> History of Present Illness - Additonal information Additional information: 58-year-old male with history of TBI, diabetes type 2 on insulin here with son with complain of labile blood sugar the past few days. Patient was here for the same thing a couple of days ago. Per son they check his blood sugar before eating and has been normal. However they were told to cover for any blood sugar over 300 But The regular insulin would give him a negative effect. They have been talking to his primary doctor Dr. Kessler about this. He has health sciences program coordinator appointment for next week was changed to April. Patient denies any Fever, headache, coughing, nausea, vomiting, diarrhea. Patient claims has not had a BM for 1 week. Results - Vitals Vitals: Vital Signs - 24 hr 03/01/18 03/01/18 03/02/18 21:45 23:36 00:37 Temperature 36.6 C Heart Rate 71 63 59 L Respiratory 17 18 17 Rate Blood Pressure 159/94 H 151/80 H 153/89 H O2 Saturation 92 94 93 03/02/18 03/02/18 02:13 03:36 Temperature 36.5 C Heart Rate 62 65 Respiratory 17 20 Rate Blood Pressure 125/88 H 154/95 H O2 Saturation 94 94 Oxygen O2 Source Room air - Labs Labs: Laboratory Tests 03/01/18 03/01/18 03/01/18 21:49 22:10 22:20 WBC 8.4 RBC 4.91 Hgb 13.8 L Hct 42.7 MCV 86.9 MCH 28.0 MCHC 32.2 RDW 15.0 Plt Count 197 MPV 9.4 Neut # (Auto) 5.4 Lymph # (Auto) 2.1 [place] # (Auto) 0.5 Eos # (Auto) 0.4 Baso # (Auto) 0.1 Absolute Nucleated RBC 0.01 Nucleated RBC % 0.1 Sodium Potassium Chloride Carbon Dioxide Anion Gap BUN Creatinine Estimated GFR (MDRD) Glucose POC Whole Bld Glucose 358 H Calcium Total Bilirubin AST ALT Alkaline Phosphatase Total Protein Albumin Globulin Albumin/Globulin Ratio Lipase Urine Color YELLOW Urine Clarity CLEAR Urine pH 5.5 Ur Specific [place] 1.020 Urine Protein NEGATIVE Urine Glucose (UA) >=1000 H Urine Ketones NEGATIVE Urine Occult Blood NEGATIVE Urine Nitrite NEGATIVE Urine Bilirubin NEGATIVE Urine Urobilinogen 0.2 (NORMAL) Ur Leukocyte Esterase NEGATIVE Ur Microscopic Review NOT INDICATED Urine Culture Comments NOT INDICATED Serum Ketones 03/01/18 03/02/18 03/02/18 22:20 00:16 01:30 WBC RBC Hgb Hct MCV MCH MCHC RDW Plt Count MPV Neut # (Auto) Lymph # (Auto) [place] # (Auto) Eos # (Auto) Baso # (Auto) Absolute Nucleated RBC Nucleated RBC % Sodium 134 L Potassium 3.8 Chloride 102 Carbon Dioxide 23 Anion Gap 9.0 BUN 29 H Creatinine 1.0 Estimated GFR (MDRD) 76 L Glucose 373 H POC Whole Bld Glucose 443 H 339 H Calcium 8.8 Total Bilirubin 0.5 AST 22 ALT 23 Alkaline Phosphatase 87 Total Protein 7.0 Albumin 3.9 Globulin 3.1 Albumin/Globulin Ratio 1.3 Lipase 30 Urine Color Urine Clarity Urine pH Ur Specific [place] Urine Protein Urine Glucose (UA) Urine Ketones Urine Occult Blood Urine Nitrite Urine Bilirubin Urine Urobilinogen Ur Leukocyte Esterase Ur Microscopic Review Urine Culture Comments Serum Ketones NEGATIVE 03/02/18 03:25 WBC RBC Hgb Hct MCV MCH MCHC RDW Plt Count MPV Neut # (Auto) Lymph # (Auto) [place] # (Auto) Eos # (Auto) Baso # (Auto) Absolute Nucleated RBC Nucleated RBC % Sodium Potassium Chloride Carbon Dioxide Anion Gap BUN Creatinine Estimated GFR (MDRD) Glucose POC Whole Bld Glucose 307 H Calcium Total Bilirubin AST ALT Alkaline Phosphatase Total Protein Albumin Globulin Albumin/Globulin Ratio Lipase Urine Color Urine Clarity Urine pH Ur Specific [place] Urine Protein Urine Glucose (UA) Urine Ketones Urine Occult Blood Urine Nitrite Urine Bilirubin Urine Urobilinogen Ur Leukocyte Esterase Ur Microscopic Review Urine Culture Comments Serum Ketones PD MEDICAL DECISION MAKING - ED course Complexity details: reviewed results ED course: Patient arrived with an Accu-Chek of 353 and blood glucose of 373 here in the ER. After liter fluid of NS at 00 115 patient's Accu-Chek was 443. This is the second time patient came to the emergency room for labile blood sugar control. Discussed options of observation versus going home. However because son seems to be frustrated with patient's labile blood sugar they are thinking of getting admitted for observation overnight. 00 30 I spoke to the hospitalist Dr. Mcghee who stated that patient does not require admission and does not meet criteria for admission. She will be happy to speak to the patient the son regarding his insulin regimen. Patient and son agreed to wait for the hospitalist.Signout given to the night ER doctor Long. Dr. Means did come to the emergency department and evaluate the patient and subcutaneous insulin was administered the patient was discharged from the emergency department with a blood sugar of 300 after having received intravenous saline and intravenous insulin. He is given instructions on administration of additional insulin and splitting up his dose of insulin. He is on approximately 130 units of insulin per day.
[2018-03-01 22:45] LABS: BASOPHILS # (AUTO) 0.1 10^3/uL (0.0-0.1); BASOPHILS % (AUTO) 0.7 %; EOSINOPHILS # (AUTO) 0.4 10^3/uL (0.0-0.7); EOSINOPHILS % (AUTO) 4.9 %; HGB - HEMOGLOBIN 13.8 g/dL (14.0-18.0); LYMPHOCYTES # (AUTO) 2.1 10^3/uL (1.5-3.5); LYMPHOCYTES % (AUTO) 25.1 %; MEAN CORPUSCULAR HGB CONC 32.2 g/dL (32.0-36.0); MEAN CORPUSCULAR VOLUME 86.9 fL (80.0-94.0); MEAN PLATELET VOLUME 9.4 fL (7.4-11.4); MONOCYTES # (AUTO) 0.5 10^3/uL (0.0-1.0); MONOCYTES % (AUTO) 5.6 %; NEUTROPHILS # (AUTO) 5.4 10^3/uL (1.5-6.6); NEUTROPHILS % (AUTO) 63.7 %; PLT - PLATELET COUNT 197 10^3/uL (130-450); RED BLOOD COUNT 4.91 10^6/uL (4.70-6.10); WHITE BLOOD COUNT 8.4 x10^3/uL (4.8-10.8)
--- NOTE | 2018-03-01 22:49 | XRAY Report ---
Reason: chest pain Procedure Date: 03/01/2018 Accession Number: [id number] / [id number] Procedure: XR - Chest 1 View X-Ray CPT Code: 24165 FULL RESULT: EXAM: CHEST RADIOGRAPHY EXAM DATE: 03/01/2018 10:33 PM. CLINICAL HISTORY: Chest pain. COMPARISON: ABDOMEN ACUTE 02/11/2018 10:33 PM. TECHNIQUE: 1 view. FINDINGS: Lungs/Pleura: No focal opacities evident. No pleural effusion. No pneumothorax. Mediastinum: Within exam limitations, the cardiomediastinal contour is normal. Other: None. IMPRESSION: Normal single view chest. RADIA
[2018-03-01 22:55] LABS: BILIRUBIN,URINE NEGATIVE (NEGATIVE); GLUCOSE, URINE (UA) >=1000 mg/dL (NEGATIVE); KETONES,URINE (UA) NEGATIVE (NEGATIVE); LEUKOCYTE ESTERASE, URINE NEGATIVE (NEGATIVE); NITRITE,URINE NEGATIVE (NEGATIVE); OCCULT BLOOD,URINE NEGATIVE (NEGATIVE); PH,URINE 5.5 PH (5.0-7.5); PROTEIN,URINE NEGATIVE (NEGATIVE); UROBILINOGEN,URINE 0.2 (NORMAL) E.U./dL (NORMAL)
[2018-03-01 22:56] LABS: ALBUMIN 3.9 g/dL (3.2-5.5); ALBUMIN/GLOBULIN RATIO 1.3 (1.0-2.2); ALKALINE PHOSPHATASE 87 IU/L (42-121); ALT ALANINE AMINOTRANSFERASE 23 IU/L (10-60); AST ASPARTATE AMINOTRANSFERASE 22 IU/L (10-42); BILIRUBIN,TOTAL 0.5 mg/dL (0.2-1.0); BUN - BLOOD UREA NITROGEN 29 mg/dL (6-20); CALCIUM 8.8 mg/dL (8.5-10.3); CARBON DIOXIDE - CO2 23 mmol/L (21-32); CHLORIDE 102 mmol/L (101-111); GFR - MDRD 76 (>89); GLUCOSE 373 mg/dL (70-100); LIPASE 30 U/L (22-51); SODIUM 134 mmol/L (135-145)
[2018-03-01 23:01] LABS: CLARITY,URINE CLEAR (CLEAR)
[2018-03-01 23:08] LABS: KETONES, SERUM (ACETEST) NEGATIVE (NEGATIVE)
[2018-03-01] MEDS ORDERED: IOVERSOL 320 100 ML VIAL IVP ONE (23:20)
--- NOTE | 2018-03-01 23:48 | CT Report ---
Reason: pain, no bm for 1 weei Procedure Date: 03/01/2018 Accession Number: [id number] / [id number] Procedure: CT - Abdomen/Pelvis W/ CPT Code: FULL RESULT: EXAM: CT ABDOMEN AND PELVIS EXAM DATE: 03/01/2018 11:37 PM. CLINICAL HISTORY: Pain, no bm for 1 week. COMPARISONS: ABDOMEN/PELVIS W/ 04/23/2016 9:39 PM. TECHNIQUE: Routine helical CT imaging was performed through the abdomen and pelvis. IV contrast: ISOVUE 300 100mL. Enteric contrast: No. Reconstructions: Coronal and sagittal. In accordance with CT protocol optimization, one or more of the following dose reduction techniques were utilized for this exam: automated exposure control, adjustment of mA and/or KV based on patient size, or use of iterative reconstructive technique. FINDINGS: Lung Bases: Unremarkable. Liver: The liver is normal in size. The hemangioma in the lateral segment of the left lobe measuring 35 mm is again noted and the hemangioma in the posterior segment of the right lobe measuring 37 mm is unchanged. Gallbladder/Bile Ducts: Unremarkable. Spleen: Normal. Pancreas: Normal. Adrenal Glands: Normal. Kidneys: Normal. No masses or hydronephrosis. Peritoneal Cavity/Bowel: Normal. No free fluid, free air or adenopathy. No masses or acute inflammatory process. The appendix is well visualized and normal. Pelvic Organs: Normal. The bladder and visualized pelvic organs are within normal limits. Vasculature: No aneurysms or other significant abnormality. Bones: Bilateral pars defects are noted at the L5 level. Other: The colon is grossly unremarkable. There is no significant amount of stool within the colon. IMPRESSION: 1. 2 hepatic hemangiomas. 2. Unremarkable appearance of the bowel. Normal-appearing appendix. RADIA
[2018-03-02] MEDS ORDERED: IOVERSOL 320 100 ML VIAL IVP ONE (00:04)
[2018-03-02] MEDS ORDERED: INSULIN REGULAR HUMAN 100 UNIT/1 ML 10 ML MDV IVP STA (00:20)
[2018-03-02] MEDS ORDERED: SODIUM CHLORIDE 0.9% 1,000 ML IV ONE (00:21)
[2018-03-02] MEDS ORDERED: INSULIN LISPRO 100 UNIT/1 ML 10 ML MDV SUBQ ONE (00:42)
[2018-03-02] MEDS ORDERED: INSULIN ASPART 300 UNIT/3 ML PEN SUBQ ONE ×2 (01:55→02:10)
[2018-03-02 03:37] VITALS: BP 154/95
--- NOTE | 2018-03-02 06:22 | CONSULTATION NOTE ---
DATE OF SERVICE: 03/02/2018 Physician: Gertrudis Means MD OUTPATIENT CONSULTATION REQUESTING PHYSICIAN: Emergency room physician, Susannah Avila DO. REASON FOR CONSULTATION: To advise on diabetic management. ACTIVE ISSUES/DIAGNOSIS: Uncontrolled blood glucose, multifactorial. a. Poor dietary compliance. b. No appropriate meal and supplemental coverage on insulin. c. No recent increase of long-acting insulin regardless of suboptimal diabetic control with recent hemoglobin A1c of 12. d. Notably, no significant electrolyte abnormality. No ketones in the blood. Hemodynamically stable without sign of DKA or any complication. e. No recent history of hypoglycemic episode. f. Case is complicated by the patient having history of traumatic brain injury and cognitive impairment; family taking care of him and managing his diabetic control. PLAN, ORDERS AND RECOMMENDATION 1. Regarding possible hospital admission, the patient does not meet inpatient criteria or observation criteria. His blood glucose was around 300 without electrolyte abnormality, vital sign abnormality or without any additional complication. This could safely be treated as outpatient. Therefore, I did not recommend hospital admission; however, I made the below recommendations for outpatient management. 2. Increase insulin Lantus from 130 units given in the morning to twice-daily dosing; 75 units in the morning and 65 units in the evening. That is an overall 10 unit increase daily. 3. Recommend medium dose insulin sliding scale with short-acting insulin lispro or aspart/ sliding scale chart was provided prior to discharge from the ER 4. Recommend adhering to carbohydrate-controlled antidiabetic diet and to avoid significant dietary indiscretions. 5. Recommend job developer appointment to happen sooner than previously planned. I requested that social sciences department chair next week assist the patient in establishing with an job developer and making an appointment sooner than April 2018. Hopefully, he could be seen sometime in the next couple of weeks. 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 Per his nephew who accompanied him to the ER, the patient functions on the level of a 10-year-old. He is taken care of by multiple family members. He does not keep a diabetic diet. He visits different homes of different family members quite frequently and that always leads to different eating patterns. In particular, the patient eats a lot of carbohydrates and sweets. He mostly eats in the evening. Usually his morning blood glucose is reasonably well controlled around 150; however, the evening blood glucose tends to be between 300 and 400. The nephew also reported that he does not feel comfortable giving any more insulin than 6 units and mostly, no matter how high the blood glucose is, they only cover with around 3 units short acting. They did have a prior ER visit for the same problem. At that time, IV hydration was given and appointment with an job developer was recommended. The job developer appointment could only be set up for April. Today at the ER, the patient was hemodynamically stable and afebrile. He had stable vital signs. His laboratories were unremarkable except for hyperglycemia. Initially when the patient presented to the ER, his blood glucose was 358. He received a liter of IV fluid, but no insulin and his blood glucose increased to 443. Subsequently, he received 6 units regular insulin IV, after which his blood glucose decreased to 339. At that point, I advised to give 8 units of short-acting insulin subcutaneously. Blood glucose was rechecked and it was 307. I felt it was a safe course to discharge the patient with the above recommendation and with close outpatient followup. PAST MEDICAL HISTORY 1. Diabetes. 2. Cognitive impairment secondary to traumatic brain injury. OUTPATIENT MEDICATIONS: Reviewed per electronic medical record. PHYSICAL EXAMINATION VITAL SIGNS: Reviewed per electronic medical record. GENERAL: The patient is a well-developed, obese male who was not in distress. MUSCULOSKELETAL: With truncal obesity. ABDOMEN: Distended. Bowel tones present. CARDIOVASCULAR: S1, S2. Regular. RESPIRATORY: Clear to auscultation. NEUROLOGIC: Nonfocal. Alert, oriented. PSYCHIATRIC: Cooperative. LYMPHATIC: No lymphedema. SOCIAL HISTORY: The patient lives with family members. FAMILY HISTORY: The patient's mother has diabetes as well. SUMMARY: In summary, patient is a 58-year-old male with poorly controlled diabetes, recent hemoglobin A1c of 12. He is already on insulin, has supplies and help from family members to manage blood glucose. To achieve better blood glucose control for this patient will be a several month-long process, which will need to be coordinated from the outpatient arena. There is no particular benefit to admitting him to the hospital overnight or even to observe him. The above recommendations were given and continued close outpatient followup is encouraged. This was a problem-focused consult, and I spent about 40 minutes discussing outpatient care plan and examining the patient and reviewing medical records. TD: 03/02/2018 06:01 NEEMA
== END 2018-03-02 03:47 | disposition home or self-care (01) ==
LOC: ED 21:41
DX: E11.65 Type 2 diabetes mellitus with hyperglycemia (principal); R10.9 Unspecified abdominal pain; K59.00 Constipation, unspecified; Z79.4 Long term (current) use of insulin; I10 Essential (primary) hypertension; E78.00 Pure hypercholesterolemia, unspecified; G81.90 Hemiplegia, unspecified affecting unspecified side; Z87.820 Personal history of traumatic brain injury
CPT/HCPCS: 36415; 71045; 74177; 80053; 81003; 82009; 83690; 85025; 96360; 96361; 99284; A9270; J1815; Q9967; 81001; 87086

== ENCOUNTER 2018-04-15 10:28 | Emergency (ER) | payer MEDICARE, MEDICAID ==
[2018-04-15 10:58] LABS: VBG BASE EXCESS -0.6 mmol/L (-2 - +2); VBG PH 7.37 (7.31-7.41); VBG PO2 36.2 mmHg (25-47); VBG TOTAL CO2 26.2 mmol/L (24-29)
[2018-04-15 10:59] LABS: BASOPHILS # (AUTO) 0.1 10^3/uL (0.0-0.1); BASOPHILS % (AUTO) 0.8 %; EOSINOPHILS # (AUTO) 0.2 10^3/uL (0.0-0.7); EOSINOPHILS % (AUTO) 2.2 %; LYMPHOCYTES # (AUTO) 1.6 10^3/uL (1.5-3.5); LYMPHOCYTES % (AUTO) 17.7 %; MEAN CORPUSCULAR HEMOGLOBIN 28.1 pg (27.0-31.0); MEAN PLATELET VOLUME 8.5 fL (7.4-11.4); MONOCYTES # (AUTO) 0.4 10^3/uL (0.0-1.0); MONOCYTES % (AUTO) 4.9 %; NEUTROPHILS # (AUTO) 6.6 10^3/uL (1.5-6.6); NEUTROPHILS % (AUTO) 74.4 %; PLT - PLATELET COUNT 212 10^3/uL (130-450); RED CELL DISTRIBUTION WIDTH 14.5 % (12.0-15.0); WHITE BLOOD COUNT 8.8 x10^3/uL (4.8-10.8)
[2018-04-15 11:08] LABS: KETONES, SERUM (ACETEST) NEGATIVE (NEGATIVE)
[2018-04-15 11:12] LABS: ALBUMIN 3.6 g/dL (3.2-5.5); ALBUMIN/GLOBULIN RATIO 1.1 (1.0-2.2); ALKALINE PHOSPHATASE 75 IU/L (42-121); ALT ALANINE AMINOTRANSFERASE 22 IU/L (10-60); AST ASPARTATE AMINOTRANSFERASE 17 IU/L (10-42); BILIRUBIN,TOTAL 0.5 mg/dL (0.2-1.0); BUN - BLOOD UREA NITROGEN 29 mg/dL (6-20); CALCIUM 8.7 mg/dL (8.5-10.3); CARBON DIOXIDE - CO2 25 mmol/L (21-32); CHLORIDE 106 mmol/L (101-111); CREATININE 1.1 mg/dL (0.6-1.2); GFR - MDRD 68 (>89); GLUCOSE 229 mg/dL (70-100); LIPASE 25 U/L (22-51); SODIUM 139 mmol/L (135-145)
--- NOTE | 2018-04-15 11:23 | ED Physician Documentation ---
History of Present Illness - Stated complaint Stated Complaint: DIZZY/AMS - Chief complaint Chief Complaint: General - History obtained from History obtained from: Patient, Family - History of Present Illness Timing: How many weeks ago (several months) Pain level max: 0 Pain level now: 0 - Additonal information Additional information: Patient is a 58-year-old male, poorly controlled diabetic who presents to the emergency department today for several months of ongoing altered mental status intermittently. Family states he has foul-smelling urine and trouble controlling his urine and feces. No significant changes recently. No fevers. No fall. No head injury. Nothing makes it better or worse Review of Systems Constitutional: denies: Fever, Chills Ears: denies: Ear pain Nose: denies: Rhinorrhea / runny nose, Congestion Throat: denies: Sore throat Cardiac: denies: Chest pain / pressure GI: denies: Nausea, Vomiting, Diarrhea Skin: denies: Rash Musculoskeletal: denies: Neck pain, Back pain Neurologic: denies: Focal weakness, Numbness, Headache PD PAST MEDICAL HISTORY - Past Medical History Past Medical History: Yes Cardiovascular: Hypertension, High cholesterol, Other Respiratory: None Neuro: None Endocrine/Autoimmune: Type 2 diabetes GI: GERD, Chronic diarrhea : None HEENT: Other Psych: Depression, Claustrophobia Musculoskeletal: Osteoarthritis, Rheumatoid arthritis, Hemiplegia, Other Derm: None - Past Surgical History Past Surgical History: Yes Ortho: Other Neuro: Other - Present Medications Home Medications: Ambulatory Orders Medication Instructions Recorded Confirmed Omeprazole 20 mg ORAL QDAC 11/26/14 05/06/16 Atorvastatin Calcium 40 mg PO QPM 06/09/15 05/06/16 Aspirin 1 tab PO DAILY 02/13/16 05/06/16 Insulin Glargine,Hum.rec.anlog 130 unit SQ QDBREAKFAST 03/10/16 05/06/16 [Toujeff Solostar] Cephalexin [Keflex] 500 mg PO TID #21 capsule 02/06/18 Oxybutynin [Ditropan] 5 mg PO BID #15 tablet 02/06/18 Insulin Aspart [Novolog Flexpen] 1 unit SUBQ ACHS PRN 03/01/18 03/01/18 - Allergies Allergies/Adverse Reactions: Allergies Allergy/AdvReac Type Severity Reaction Status Date / Time No Known Drug Allergies Allergy Verified 04/15/18 10:37 - Social History Does the pt smoke?: No Smoking Status: Never smoker Does the pt drink ETOH?: No Does the pt have substance abuse?: No - Immunizations Immunizations are current?: Yes - POLST Patient has POLST: No PD ED PE NORMAL - Vitals Vital signs reviewed: Yes - General General: No acute distress, Well developed/nourished, Other (alert, oriented to person and place. slow to respond to questions.) - HEENT HEENT: PERRL, Moist mucous membranes - Neck Neck: Supple, no meningeal sign - Cardiac Cardiac: RRR, Strong equal pulses - Respiratory Respiratory: No respiratory distress, Clear bilaterally - Abdomen Abdomen: Soft, Non tender, Non distended - Derm Derm: Warm and dry, No rash - Extremities Extremities: No deformity, No tenderness to palpate, No edema - Neuro Neuro: No motor deficit, No sensory deficit - Psych Psych: Normal mood, Normal affect Results - Vitals Vitals: Vital Signs - 24 hr 04/15/18 04/15/18 10:34 12:51 Temperature 36.3 C L Heart Rate 68 58 L Respiratory 16 14 Rate Blood Pressure 162/87 H 136/78 H O2 Saturation 94 95 Oxygen O2 Source Room air - Labs Labs: Laboratory Tests 04/15/18 04/15/18 04/15/18 10:41 10:50 10:50 WBC 8.8 RBC 5.00 Hgb 14.0 Hct 42.4 MCV 85.0 MCH 28.1 MCHC 33.0 RDW 14.5 Plt Count 212 MPV 8.5 Neut # (Auto) 6.6 Lymph # (Auto) 1.6 [place] # (Auto) 0.4 Eos # (Auto) 0.2 Baso # (Auto) 0.1 Absolute Nucleated RBC 0.00 Nucleated RBC % 0.0 VBG pH VBG pCO2 VBG pO2 VBG HCO3 VBG Total CO2 VBG O2 Saturation VBG Base Excess Sodium 139 Potassium 4.5 Chloride 106 Carbon Dioxide 25 Anion Gap 8.0 BUN 29 H Creatinine 1.1 Estimated GFR (MDRD) 68 L Glucose 229 H Glycated Hemoglobin 10.2 H Estim Average Glucose 246 H Calcium 8.7 Total Bilirubin 0.5 AST 17 ALT 22 Alkaline Phosphatase 75 Total Protein 7.0 Albumin 3.6 Globulin 3.4 Albumin/Globulin Ratio 1.1 Lipase 25 Urine Color Urine Clarity Urine pH Ur Specific [place] Urine Protein Urine Glucose (UA) Urine Ketones Urine Occult Blood Urine Nitrite Urine Bilirubin Urine Urobilinogen Ur Leukocyte Esterase Urine RBC Urine WBC Ur Squamous Epith Cells Urine Bacteria Ur Microscopic Review Urine Culture Comments Serum Ketones NEGATIVE 04/15/18 04/15/18 10:50 11:45 WBC RBC Hgb Hct MCV MCH MCHC RDW Plt Count MPV Neut # (Auto) Lymph # (Auto) [place] # (Auto) Eos # (Auto) Baso # (Auto) Absolute Nucleated RBC Nucleated RBC % VBG pH 7.370 VBG pCO2 44.0 VBG pO2 36.2 VBG HCO3 24.9 VBG Total CO2 26.2 VBG O2 Saturation 67.9 VBG Base Excess -0.6 Sodium Potassium Chloride Carbon Dioxide Anion Gap BUN Creatinine Estimated GFR (MDRD) Glucose Glycated Hemoglobin Estim Average Glucose Calcium Total Bilirubin AST ALT Alkaline Phosphatase Total Protein Albumin Globulin Albumin/Globulin Ratio Lipase Urine Color YELLOW Urine Clarity HAZY Urine pH 5.5 Ur Specific [place] 1.025 Urine Protein NEGATIVE Urine Glucose (UA) 500 H Urine Ketones NEGATIVE Urine Occult Blood NEGATIVE Urine Nitrite NEGATIVE Urine Bilirubin NEGATIVE Urine Urobilinogen 0.2 (NORMAL) Ur Leukocyte Esterase NEGATIVE Urine RBC 0-5 Urine WBC 0-3 Ur Squamous Epith Cells FEW Squamous Urine Bacteria Few Ur Microscopic Review INDICATED Urine Culture Comments NOT INDICATED Serum Ketones PD MEDICAL DECISION MAKING - ED course Complexity details: reviewed old records, reviewed results, re-evaluated patient, considered differential, d/w patient, d/w family ED course: 58-year-old male presents to the emergency department and is found to have chronic hyperglycemia and mild dehydration. Declines IV fluids at this time. Dizziness went away. He did feel lightheaded with standing initially. Ambulating without difficulty. No UTI. There was no diarrhea in the emergency department. We will have the patient follow-up with his doctor for further evaluation and care. Patient and family counseled regarding signs and symptoms for which I believe and urgent re-evaluation would be necessary. Patient with good understanding of and agreement to plan and is comfortable going home at this time This document was made in part using voice recognition software. While efforts are made to proofread this document, sound alike and grammatical errors may occur. 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 Return if Felipe worsens. Discharge Date/Time: 04/15/18 13:29
[2018-04-15 11:52] LABS: HB2 TOTAL 15.5 g/dL; HEMOGLOBIN A1C 1.37 g/dL; HEMOGLOBIN A1C % 10.2 % (4.6-6.2)
[2018-04-15 12:09] LABS: BILIRUBIN,URINE NEGATIVE (NEGATIVE); GLUCOSE, URINE (UA) 500 mg/dL (NEGATIVE); KETONES,URINE (UA) NEGATIVE (NEGATIVE); LEUKOCYTE ESTERASE, URINE NEGATIVE (NEGATIVE); NITRITE,URINE NEGATIVE (NEGATIVE); OCCULT BLOOD,URINE NEGATIVE (NEGATIVE); PH,URINE 5.5 PH (5.0-7.5); PROTEIN,URINE NEGATIVE (NEGATIVE); UROBILINOGEN,URINE 0.2 (NORMAL) E.U./dL (NORMAL)
[2018-04-15 12:16] LABS: BACTERIA,URINE Few /HPF (None Seen); CLARITY,URINE HAZY (CLEAR); RBC,URINE 0-5 /HPF (0-5); SQUAMOUS EPITHELIAL CELL,UR FEW Squamous (<= Few)
[2018-04-15 12:52] VITALS: BP 136/78
== END 2018-04-15 13:29 | disposition home or self-care (01) ==
LOC: ED 10:28
DX: E86.0 Dehydration (principal); E11.65 Type 2 diabetes mellitus with hyperglycemia; I10 Essential (primary) hypertension; E78.00 Pure hypercholesterolemia, unspecified; Z79.82 Long term (current) use of aspirin; Z79.4 Long term (current) use of insulin
CPT/HCPCS: 36415; 80053; 81001; 81003; 82009; 82803; 83036; 83690; 85025; 87086; 99283

== ENCOUNTER 2018-04-29 20:56 | Emergency (ER) | payer MEDICARE, MEDICAID ==
--- NOTE | 2018-04-29 21:15 | ED Physician Documentation ---
History of Present Illness - Stated complaint Stated Complaint: HIGH BLOOD SUGAR,DIARRHEA - Chief complaint Chief Complaint: Abd Pain - History obtained from History obtained from: Patient, Family - History of Present Illness Timing: How many weeks ago (2-3) Pain level now: 0 Improved by: nothing Worsened by: no exacerbating factors - Additonal information Additional information: c/o 2-3 weeks of increasingly frequent diarrhea, urinary frequency. blood sugar tonight at home was 352. has not missed doses of medications including insulin Review of Systems Constitutional: reports: Reviewed and negative Cardiac: reports: Reviewed and negative Respiratory: reports: Reviewed and negative GI: reports: Diarrhea. denies: Abdominal Pain, Nausea, Vomiting : reports: Frequency. denies: Dysuria PD PAST MEDICAL HISTORY - Past Medical History Cardiovascular: Hypertension, High cholesterol, Other Respiratory: None Neuro: None Endocrine/Autoimmune: Type 2 diabetes GI: GERD, Chronic diarrhea : None HEENT: Other Psych: Depression, Claustrophobia Musculoskeletal: Osteoarthritis, Rheumatoid arthritis, Hemiplegia, Other Derm: None - Past Surgical History Past Surgical History: Yes Ortho: Other Neuro: Other - Present Medications Home Medications: Ambulatory Orders Medication Instructions Recorded Confirmed Omeprazole 20 mg ORAL QDAC 11/26/14 05/06/16 Atorvastatin Calcium 40 mg PO QPM 06/09/15 05/06/16 Aspirin 1 tab PO DAILY 02/13/16 05/06/16 Insulin Glargine,Hum.rec.anlog 130 unit SQ QDBREAKFAST 03/10/16 05/06/16 [Toujeo Solostar] Cephalexin [Keflex] 500 mg PO TID #21 capsule 02/06/18 Oxybutynin [Ditropan] 5 mg PO BID #15 tablet 02/06/18 Insulin Aspart [Novolog Flexpen] 1 unit SUBQ ACHS PRN 03/01/18 03/01/18 Diphenoxylate/Atropine [Lomotil] 1 each PO QID PRN #10 tablet 04/30/18 - Allergies Allergies/Adverse Reactions: Allergies Allergy/AdvReac Type Severity Reaction Status Date / Time No Known Drug Allergies Allergy Verified 04/29/18 21:03 - Social History Does the pt smoke?: No Smoking Status: Never smoker Does the pt drink ETOH?: No Does the pt have substance abuse?: No - Immunizations Immunizations are current?: Yes - POLST Patient has POLST: No PD ED PE NORMAL - Vitals Vital signs reviewed: Yes - General General: Alert and oriented X 3, No acute distress, Well developed/nourished - HEENT HEENT: Moist mucous membranes - Cardiac Cardiac: RRR, No murmur - Respiratory Respiratory: No respiratory distress, Clear bilaterally - Abdomen Abdomen: Soft, Non tender - Derm Derm: Normal color, Warm and dry - Extremities Extremities: No edema Results - Vitals Vitals: Oxygen O2 Source Room air - Labs Labs: Microbiology 04/29/18 21:40 Campylobacter Antigen Assay - Final Stool Stool Culture - Preliminary 04/29/18 21:40 Clostridium difficile (PCR) - Final Stool Laboratory Tests 04/29/18 04/29/18 04/29/18 21:16 21:17 21:17 WBC 8.8 RBC 4.87 Hgb 13.6 L Hct 42.0 MCV 86.3 MCH 28.0 MCHC 32.4 RDW 14.4 Plt Count 209 MPV 9.0 Neut # (Auto) 5.8 Lymph # (Auto) 2.2 [place] # (Auto) 0.5 Eos # (Auto) 0.3 Baso # (Auto) 0.1 Absolute Nucleated RBC 0.01 Nucleated RBC % 0.1 Sodium 131 L Potassium 3.9 Chloride 102 Carbon Dioxide 23 Anion Gap 6.0 BUN 21 H Creatinine 1.0 Estimated GFR (MDRD) 76 L Glucose 354 H POC Whole Bld Glucose 338 H Calcium 8.4 L Total Bilirubin 0.7 AST 23 ALT 21 Alkaline Phosphatase 92 Total Protein 7.3 Albumin 3.6 Globulin 3.7 Albumin/Globulin Ratio 1.0 Lipase 30 Urine Color Urine Clarity Urine pH Ur Specific [place] Urine Protein Urine Glucose (UA) Urine Ketones Urine Occult Blood Urine Nitrite Urine Bilirubin Urine Urobilinogen Ur Leukocyte Esterase Ur Microscopic Review Urine Culture Comments Serum Ketones NEGATIVE 04/29/18 04/30/18 21:40 00:24 WBC RBC Hgb Hct MCV MCH MCHC RDW Plt Count MPV Neut # (Auto) Lymph # (Auto) [place] # (Auto) Eos # (Auto) Baso # (Auto) Absolute Nucleated RBC Nucleated RBC % Sodium Potassium Chloride Carbon Dioxide Anion Gap BUN Creatinine Estimated GFR (MDRD) Glucose POC Whole Bld Glucose 252 H Calcium Total Bilirubin AST ALT Alkaline Phosphatase Total Protein Albumin Globulin Albumin/Globulin Ratio Lipase Urine Color LIGHT YELLOW Urine Clarity CLEAR Urine pH 6.0 Ur Specific [place] <=1.005 Urine Protein NEGATIVE Urine Glucose (UA) >=1000 H Urine Ketones NEGATIVE Urine Occult Blood NEGATIVE Urine Nitrite NEGATIVE Urine Bilirubin NEGATIVE Urine Urobilinogen 0.2 (NORMAL) Ur Leukocyte Esterase NEGATIVE Ur Microscopic Review NOT INDICATED Urine Culture Comments NOT INDICATED Serum Ketones PD MEDICAL DECISION MAKING - ED course Complexity details: reviewed old records, reviewed results, re-evaluated patient, considered differential, d/w patient, d/w family Departure - Departure Disposition: Home, Self Care Clinical Impression: Hyperglycemia, Diarrhea Condition: Good Instructions: ED Hyperglycemia Diabetic, ED Gastroenteritis Report Pend, ED Diet Vomiting Diarrhea Follow-Up: Basilia Schreiber PA [Primary Care Provider] - Within 1 week Prescriptions: Diphenoxylate/Atropine [Lomotil] 1 each PO QID PRN #10 tablet PRN Reason: Diarrhea Discharge Date/Time: 04/30/18 01:05
[2018-04-29] MEDS ORDERED: SODIUM CHLORIDE 0.9% 1,000 ML IV STA ×2 (21:19→21:57)
[2018-04-29 21:28] LABS: BASOPHILS # (AUTO) 0.1 10^3/uL (0.0-0.1); BASOPHILS % (AUTO) 0.6 %; EOSINOPHILS # (AUTO) 0.3 10^3/uL (0.0-0.7); EOSINOPHILS % (AUTO) 3.5 %; HGB - HEMOGLOBIN 13.6 g/dL (14.0-18.0); LYMPHOCYTES # (AUTO) 2.2 10^3/uL (1.5-3.5); LYMPHOCYTES % (AUTO) 24.6 %; MEAN CORPUSCULAR HGB CONC 32.4 g/dL (32.0-36.0); MEAN CORPUSCULAR VOLUME 86.3 fL (80.0-94.0); MONOCYTES # (AUTO) 0.5 10^3/uL (0.0-1.0); MONOCYTES % (AUTO) 5.1 %; NEUTROPHILS # (AUTO) 5.8 10^3/uL (1.5-6.6); NEUTROPHILS % (AUTO) 66.2 %; PLT - PLATELET COUNT 209 10^3/uL (130-450); RED BLOOD COUNT 4.87 10^6/uL (4.70-6.10); RED CELL DISTRIBUTION WIDTH 14.4 % (12.0-15.0); WHITE BLOOD COUNT 8.8 x10^3/uL (4.8-10.8)
[2018-04-29 21:42] LABS: KETONES, SERUM (ACETEST) NEGATIVE (NEGATIVE)
[2018-04-29 21:47] LABS: ALBUMIN 3.6 g/dL (3.2-5.5); ALKALINE PHOSPHATASE 92 IU/L (42-121); ALT ALANINE AMINOTRANSFERASE 21 IU/L (10-60); AST ASPARTATE AMINOTRANSFERASE 23 IU/L (10-42); BILIRUBIN,TOTAL 0.7 mg/dL (0.2-1.0); BUN - BLOOD UREA NITROGEN 21 mg/dL (6-20); CALCIUM 8.4 mg/dL (8.5-10.3); CARBON DIOXIDE - CO2 23 mmol/L (21-32); CHLORIDE 102 mmol/L (101-111); GFR - MDRD 76 (>89); GLUCOSE 354 mg/dL (70-100); LIPASE 30 U/L (22-51); SODIUM 131 mmol/L (135-145); TOTAL PROTEIN 7.3 g/dL (6.7-8.2)
[2018-04-29 21:52] LABS: BILIRUBIN,URINE NEGATIVE (NEGATIVE); GLUCOSE, URINE (UA) >=1000 mg/dL (NEGATIVE); KETONES,URINE (UA) NEGATIVE (NEGATIVE); LEUKOCYTE ESTERASE, URINE NEGATIVE (NEGATIVE); NITRITE,URINE NEGATIVE (NEGATIVE); OCCULT BLOOD,URINE NEGATIVE (NEGATIVE); PROTEIN,URINE NEGATIVE (NEGATIVE); UROBILINOGEN,URINE 0.2 (NORMAL) E.U./dL (NORMAL)
[2018-04-29 21:56] LABS: CLARITY,URINE CLEAR (CLEAR)
[2018-04-29] MEDS ORDERED: INSULIN REGULAR HUMAN 100 UNIT/1 ML 10 ML MDV IVP STA (21:58)
[2018-04-29] MEDS ORDERED: DIPHENOX/ATROPINE 2.5/0.025 MG TABLET PO STA (22:18)
[2018-04-30 00:42] VITALS: BP 156/104
== END 2018-04-30 01:05 | disposition home or self-care (01) ==
LOC: ED 20:56
DX: E11.65 Type 2 diabetes mellitus with hyperglycemia (principal); R19.7 Diarrhea, unspecified; I10 Essential (primary) hypertension; G81.90 Hemiplegia, unspecified affecting unspecified side; Z79.82 Long term (current) use of aspirin; Z79.4 Long term (current) use of insulin
CPT/HCPCS: 36415; 80053; 81003; 82009; 83690; 85025; 87045; 87046; 87177; 87209; 87493; 96360; 96361; 99283; A9270; J1815; 81001; 87086

== ENCOUNTER 2018-06-15 11:44 | Emergency (ER) | payer MEDICARE, MEDICAID ==
[2018-06-15 12:34] LABS: BASOPHILS # (AUTO) 0.1 10^3/uL (0.0-0.1); BASOPHILS % (AUTO) 0.7 %; EOSINOPHILS # (AUTO) 0.2 10^3/uL (0.0-0.7); EOSINOPHILS % (AUTO) 1.8 %; HGB - HEMOGLOBIN 13.4 g/dL (14.0-18.0); LYMPHOCYTES # (AUTO) 1.6 10^3/uL (1.5-3.5); MEAN CORPUSCULAR HEMOGLOBIN 27.7 pg (27.0-31.0); MEAN CORPUSCULAR HGB CONC 33.1 g/dL (32.0-36.0); MEAN CORPUSCULAR VOLUME 83.8 fL (80.0-94.0); MEAN PLATELET VOLUME 8.7 fL (7.4-11.4); MONOCYTES # (AUTO) 0.6 10^3/uL (0.0-1.0); MONOCYTES % (AUTO) 4.6 %; NEUTROPHILS # (AUTO) 10.8 10^3/uL (1.5-6.6); NEUTROPHILS % (AUTO) 80.9 %; PLT - PLATELET COUNT 210 10^3/uL (130-450); RED BLOOD COUNT 4.85 10^6/uL (4.70-6.10); RED CELL DISTRIBUTION WIDTH 14.6 % (12.0-15.0); WHITE BLOOD COUNT 13.3 x10^3/uL (4.8-10.8)
[2018-06-15 12:44] LABS: ALBUMIN 3.8 g/dL (3.2-5.5); BILIRUBIN,TOTAL 0.4 mg/dL (0.2-1.0); CALCIUM 8.8 mg/dL (8.5-10.3); CREATININE 0.9 mg/dL (0.6-1.2); TOTAL PROTEIN 7.5 g/dL (6.7-8.2)
[2018-06-15 13:35] LABS: BILIRUBIN,URINE NEGATIVE (NEGATIVE); GLUCOSE, URINE (UA) >=1000 mg/dL (NEGATIVE); KETONES,URINE (UA) NEGATIVE (NEGATIVE); LEUKOCYTE ESTERASE, URINE NEGATIVE (NEGATIVE); NITRITE,URINE NEGATIVE (NEGATIVE); OCCULT BLOOD,URINE NEGATIVE (NEGATIVE); PH,URINE 5.5 PH (5.0-7.5); PROTEIN,URINE NEGATIVE (NEGATIVE); UROBILINOGEN,URINE 0.2 (NORMAL) E.U./dL (NORMAL)
[2018-06-15 13:40] LABS: CLARITY,URINE CLEAR (CLEAR)
--- NOTE | 2018-06-15 14:47 | ED Physician Documentation ---
History of Present Illness - Stated complaint Stated Complaint: HIGH SUGAR - Chief complaint Chief Complaint: General - History obtained from History obtained from: Patient, Family - History of Present Illness Timing: Chronic (This is a 58-year-old gentleman with type 2 diabetes his blood sugars have been kind of chronically uncontrolled despite increasing his dose of long-acting insulin to 140 units once a day and a sliding scale. He is not on any oral medications and I am not sure why. He is having a lot of trouble with polyuria at night which is keeping him up.) Review of Systems Constitutional: denies: Fever, Fatigue Cardiac: denies: Chest pain / pressure, Palpitations Respiratory: denies: Dyspnea, Cough PD PAST MEDICAL HISTORY - Past Medical History Cardiovascular: Hypertension, High cholesterol, Other Respiratory: None Neuro: None Endocrine/Autoimmune: Type 2 diabetes GI: GERD, Chronic diarrhea : None HEENT: Other Psych: Depression, Claustrophobia Musculoskeletal: Osteoarthritis, Rheumatoid arthritis, Hemiplegia, Other Derm: None - Past Surgical History Past Surgical History: Yes Ortho: Other Neuro: Other - Present Medications Home Medications: Ambulatory Orders Medication Instructions Recorded Confirmed Omeprazole 20 mg ORAL QDAC 11/26/14 06/15/18 Atorvastatin Calcium 40 mg PO QPM 06/09/15 06/15/18 Aspirin 1 tab PO DAILY 02/13/16 06/15/18 Insulin Glargine,Hum.rec.anlog 140 unit SQ QDBREAKFAST 03/10/16 06/15/18 [Toujeff Solostar] Cephalexin [Keflex] 500 mg PO TID #21 capsule 02/06/18 06/15/18 Oxybutynin [Ditropan] 5 mg PO BID #15 tablet 02/06/18 06/15/18 Insulin Aspart [Novolog Flexpen] 8 unit SUBQ ACHS PRN 03/01/18 06/15/18 Diphenoxylate/Atropine [Lomotil] 1 each PO QID PRN #10 tablet 04/30/18 06/15/18 Metformin HCl 2 tab PO BID #120 tablet 06/15/18 - Allergies Allergies/Adverse Reactions: Allergies Allergy/AdvReac Type Severity Reaction Status Date / Time No Known Drug Allergies Allergy Verified 06/15/18 11:51 - Social History Does the pt smoke?: No Smoking Status: Never smoker Does the pt drink ETOH?: No Does the pt have substance abuse?: No - Immunizations Immunizations are current?: Yes - POLST Patient has POLST: No PD ED PE NORMAL - Vitals Vital signs reviewed: Yes - General General: Alert and oriented X 3, No acute distress - Derm Derm: No rash - Neuro Neuro: Alert and oriented X 3, Normal speech - Psych Psych: Normal mood, Normal affect Results - Vitals Vitals: Vital Signs - 24 hr 06/15/18 11:49 Temperature 36.3 C L Heart Rate 78 Respiratory 20 Rate O2 Saturation 95 Oxygen O2 Source Room air - Labs Labs: Laboratory Tests 06/15/18 06/15/18 06/15/18 11:51 12:28 12:28 WBC 13.3 H RBC 4.85 Hgb 13.4 L Hct 40.6 L MCV 83.8 MCH 27.7 MCHC 33.1 RDW 14.6 Plt Count 210 MPV 8.7 Neut # (Auto) 10.8 H Lymph # (Auto) 1.6 [place] # (Auto) 0.6 Eos # (Auto) 0.2 Baso # (Auto) 0.1 Absolute Nucleated RBC 0.01 Nucleated RBC % 0.0 Sodium 134 L Potassium 4.6 Chloride 100 L Carbon Dioxide 25 Anion Gap 9.0 BUN 29 H Creatinine 0.9 Estimated GFR (MDRD) 86 L Glucose 302 H POC Whole Bld Glucose 298 H Calcium 8.8 Total Bilirubin 0.4 AST 21 ALT 29 Alkaline Phosphatase 90 Total Protein 7.5 Albumin 3.8 Globulin 3.7 Albumin/Globulin Ratio 1.0 Lipase 31 Urine Color Urine Clarity Urine pH Ur Specific [place] Urine Protein Urine Glucose (UA) Urine Ketones Urine Occult Blood Urine Nitrite Urine Bilirubin Urine Urobilinogen Ur Leukocyte Esterase Ur Microscopic Review Urine Culture Comments 06/15/18 13:26 WBC RBC Hgb Hct MCV MCH MCHC RDW Plt Count MPV Neut # (Auto) Lymph # (Auto) [place] # (Auto) Eos # (Auto) Baso # (Auto) Absolute Nucleated RBC Nucleated RBC % Sodium Potassium Chloride Carbon Dioxide Anion Gap BUN Creatinine Estimated GFR (MDRD) Glucose POC Whole Bld Glucose Calcium Total Bilirubin AST ALT Alkaline Phosphatase Total Protein Albumin Globulin Albumin/Globulin Ratio Lipase Urine Color YELLOW Urine Clarity CLEAR Urine pH 5.5 Ur Specific [place] <=1.005 Urine Protein NEGATIVE Urine Glucose (UA) >=1000 H Urine Ketones NEGATIVE Urine Occult Blood NEGATIVE Urine Nitrite NEGATIVE Urine Bilirubin NEGATIVE Urine Urobilinogen 0.2 (NORMAL) Ur Leukocyte Esterase NEGATIVE Ur Microscopic Review NOT INDICATED Urine Culture Comments NOT INDICATED PD MEDICAL DECISION MAKING - ED course ED course: This is a 58-year-old gentleman with uncontrolled blood sugars. He is not in DKA. He has an appointment with an night monitor in about 2 weeks and we will start him on metformin pending that appointment. 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
[2018-06-15 15:03] VITALS: BP 130/80
== END 2018-06-15 15:01 | disposition home or self-care (01) ==
LOC: ED 11:44
DX: E11.65 Type 2 diabetes mellitus with hyperglycemia (principal); I10 Essential (primary) hypertension; Z79.4 Long term (current) use of insulin
CPT/HCPCS: 36415; 80053; 81001; 81003; 83690; 85025; 87086; 99283

== ENCOUNTER 2018-09-12 17:55 | Emergency (ER) | payer MEDICARE, MEDICAID ==
--- NOTE | 2018-09-12 18:38 | ED Physician Documentation ---
PD HPI UPPER EXT INJURY - Stated complaint Stated Complaint: RT HAND PINKY LAC - Chief complaint Chief Complaint: Laceration - History obtained from History obtained from: Patient - History of Present Illness Location: Right, Finger Type of injury: Laceration Where injury occurred: Home Timing - onset: How many days ago Timing - duration: Days (Several, they are unclear exactly how many days) Timing - details: Abrupt onset Recently seen: Not recently seen - Additonal information Additional information: Is a 58-year-old man who has had a prior stroke and left with numbness in the right hand to cut it on barbed wire several days ago right at the Distal volar crease of the pinky finger. His nephew is here with him and they have been cleaning it at home by soaking it in Epsom salts and putting antibiotic ointment on it. They are concerned because when he gets up in the morning the tip of it is very red and swollen as big as his thumb it hurts more than usual and then through the day it actually reduces and he feels a little bit better. His blood sugars have been running high and they are concerned that it is infected. Last tetanus vaccine was less than 5 years ago. Review of Systems Constitutional: denies: Fever Skin: reports: Other (Swelling and redness to the distal pinky on the right hand) Musculoskeletal: reports: Extremity pain (Pain in the right pinky) Endocrine: reports: Other (Blood sugars have been running high 300s) PD PAST MEDICAL HISTORY - Past Medical History Cardiovascular: Hypertension, High cholesterol, Other Respiratory: None Neuro: None Endocrine/Autoimmune: Type 2 diabetes GI: GERD, Chronic diarrhea : None HEENT: Other Psych: Depression, Claustrophobia Musculoskeletal: Osteoarthritis, Rheumatoid arthritis, Hemiplegia, Other Derm: None - Past Surgical History Past Surgical History: Yes Ortho: Other Neuro: Other - Present Medications Home Medications: Ambulatory Orders Medication Instructions Recorded Confirmed RX: Omeprazole 20 mg ORAL QDAC 11/26/14 06/15/18 RX: Atorvastatin Calcium 40 mg PO QPM 06/09/15 06/15/18 RX: Aspirin 1 tab PO DAILY 02/13/16 06/15/18 Insulin Glargine,Hum.rec.anlog 140 unit SQ QDBREAKFAST 03/10/16 06/15/18 [Saranya Bunch] Cephalexin [Keflex] 500 mg PO TID #21 capsule 02/06/18 06/15/18 Oxybutynin [Ditropan] 5 mg PO BID #15 tablet 02/06/18 06/15/18 Insulin Aspart [Novolog Flexpen] 8 unit SUBQ ACHS PRN 03/01/18 06/15/18 Diphenoxylate/Atropine [Lomotil] 1 each PO QID PRN #10 tablet 04/30/18 06/15/18 RX: Metformin HCl 2 tab PO BID #120 tablet 06/15/18 - Allergies Allergies/Adverse Reactions: Allergies Allergy/AdvReac Type Severity Reaction Status Date / Time No Known Drug Allergies Allergy Verified 06/15/18 11:51 - Social History Does the pt smoke?: No Smoking Status: Never smoker Does the pt drink ETOH?: No Does the pt have substance abuse?: No - Immunizations Immunizations are current?: Yes - POLST Patient has POLST: No PD ED PE NORMAL - Vitals Vital signs reviewed: Yes - General General: Alert and oriented X 3, No acute distress, Well developed/nourished - HEENT HEENT: Atraumatic - Cardiac Cardiac: RRR - Respiratory Respiratory: No respiratory distress - Derm Derm: Other (There is a deep scabbed laceration at the distal volar right pinky crease. There is some minimal erythema and edema just distal to this. Nothing proximal. The pad itself has good capillary refill at this time and is not specifically swollen or erythematous. There is no purulent drainage.) Results - Vitals Vitals: Vital Signs - 24 hr 09/12/18 09/12/18 18:00 19:19 Temperature 36.6 C 36.2 C L Heart Rate 78 72 Respiratory 16 16 Rate Blood Pressure 174/86 H 145/77 H O2 Saturation 94 93 Oxygen O2 Source Room air PD MEDICAL DECISION MAKING - ED course Complexity details: d/w patient, d/w family ED course: This wound is actually healing amazingly well given the depth of it. I think the pinky pad swelling just has to do with the disruption of venous flow out of the finger. There is no sign of infection at this time. They can continue with the good care of that they have been providing at home. Departure - Departure Disposition: Home, Self Care Clinical Impression: Laceration Condition: Good Instructions: ED Laceration Old Not Sutr Follow-Up: Basilia Schreiber PA [Primary Care Provider] - Comments: This will take quite a while to heal given the depth of it. Continue soaking it in Epson salts and you can put antibiotic ointment but it certainly does not need antibiotics at this time orally.Elevated if it is throbbing or swelling. Follow-up with your primary care provider or return if it showing signs of infection that would include red streaking up the finger and into the hand or wrist., Fever or purulent drainage. Discharge Date/Time: 09/12/18 19:20
[2018-09-12] MEDS ORDERED: BACITRACIN OINT TOP STA (19:11)
[2018-09-12 19:20] VITALS: BP 145/77
== END 2018-09-12 19:20 | disposition home or self-care (01) ==
LOC: ED 17:55
DX: S61.216A Laceration without foreign body of right little finger without damage to nail, initial encounter (principal); W26.8XXA Contact with other sharp object(s), not elsewhere classified, initial encounter; I69.359 Hemiplegia and hemiparesis following cerebral infarction affecting unspecified side; I10 Essential (primary) hypertension; E11.9 Type 2 diabetes mellitus without complications; Z79.4 Long term (current) use of insulin
CPT/HCPCS: 99282; 99283; A9270

== ENCOUNTER 2018-10-11 17:43 | Emergency (ER) | payer MEDICARE, MEDICAID ==
[2018-10-11 18:43] VITALS: BP 140/83
--- NOTE | 2018-10-11 18:50 | ED Physician Documentation ---
History of Present Illness - Stated complaint Stated Complaint: Bilat lower Ext swelling - Chief complaint Chief Complaint: General - History obtained from History obtained from: Patient, Family - History of Present Illness Timing: How many days ago (several) Pain level max: 0 Pain level now: 0 - Additonal information Additional information: 58-year-old male presents to the emergency department bilateral lower extremity swelling. This been ongoing for several weeks. He is on diuretics. Worse with standing, better with elevation of his legs. No dyspnea. No chest pain. No fevers. No coughing. Review of Systems Ten Systems: 10 systems reviewed and negative Constitutional: denies: Fever, Chills Nose: denies: Rhinorrhea / runny nose, Congestion Throat: denies: Sore throat Respiratory: denies: Cough GI: denies: Vomiting, Diarrhea Skin: denies: Rash Musculoskeletal: denies: Neck pain, Back pain Neurologic: denies: Headache PD PAST MEDICAL HISTORY - Past Medical History Cardiovascular: Hypertension, High cholesterol, Other Respiratory: None Neuro: None Endocrine/Autoimmune: Type 2 diabetes GI: GERD, Chronic diarrhea : None HEENT: Other Psych: Depression, Claustrophobia Musculoskeletal: Osteoarthritis, Rheumatoid arthritis, Hemiplegia, Other Derm: None - Past Surgical History Past Surgical History: Yes Ortho: Other Neuro: Other - Present Medications Home Medications: Ambulatory Orders Medication Instructions Recorded Confirmed Omeprazole 20 mg ORAL QDAC 11/26/14 06/15/18 Atorvastatin Calcium 40 mg PO QPM 06/09/15 06/15/18 Aspirin 1 tab PO DAILY 02/13/16 06/15/18 Insulin Glargine,Hum.rec.anlog 140 unit SQ QDBREAKFAST 03/10/16 06/15/18 [Saranya Bunch] Cephalexin [Keflex] 500 mg PO TID #21 capsule 02/06/18 06/15/18 Oxybutynin [Ditropan] 5 mg PO BID #15 tablet 02/06/18 06/15/18 Insulin Aspart [Novolog Flexpen] 8 unit SUBQ ACHS PRN 03/01/18 06/15/18 Diphenoxylate/Atropine [Lomotil] 1 each PO QID PRN #10 tablet 04/30/18 06/15/18 Metformin HCl 2 tab PO BID #120 tablet 06/15/18 - Allergies Allergies/Adverse Reactions: Allergies Allergy/AdvReac Type Severity Reaction Status Date / Time No Known Drug Allergies Allergy Verified 06/15/18 11:51 - Social History Does the pt smoke?: No Smoking Status: Never smoker Does the pt drink ETOH?: No Does the pt have substance abuse?: No - Immunizations Immunizations are current?: Yes - POLST Patient has POLST: No PD ED PE NORMAL - Vitals Vital signs reviewed: Yes - General General: Alert and oriented X 3, No acute distress, Well developed/nourished - HEENT HEENT: PERRL, Moist mucous membranes - Neck Neck: Supple, no meningeal sign - Cardiac Cardiac: RRR - Respiratory Respiratory: No respiratory distress, Clear bilaterally - Abdomen Abdomen: Soft, Non tender, Non distended - Derm Derm: Warm and dry - Extremities Extremities: No calf tenderness / cord, Other (1+ pitting edema bilateral lower extremity.) - Neuro Neuro: Alert and oriented X 3 - Psych Psych: Normal mood, Normal affect Results - Vitals Vitals: Vital Signs - 24 hr 10/11/18 10/11/18 17:48 18:42 Temperature 36.6 C Heart Rate 78 Respiratory 16 Rate Blood Pressure 140/83 H O2 Saturation 94 Oxygen O2 Source Room air PD MEDICAL DECISION MAKING - ED course Complexity details: considered differential, d/w patient, d/w family ED course: Patient with bilateral lower extremity edema. No signs of pulmonary edema. No hypoxia. No respiratory distress. No evidence of DVT. Will place in compr ession stockings and follow-up with his doctor. Had normal blood work yesterday with his doctor. Per family. Patient and family counseled regarding signs and symptoms for which I believe and urgent re-evaluation would be necessary. Patient with good understanding of and agreement to plan and is comfortable going home at this time This document was made in part using voice recognition software. While efforts are made to proofread this document, sound alike and grammatical errors may occur. Departure - Departure Disposition: 01 Home, Self Care Clinical Impression: Bilateral leg edema Condition: Good Instructions: ED Edema Legs Bilateral Follow-Up: Basilia Schreiber PA [Primary Care Provider] - Within 1 week Comments: You need to concentrate on elevating your legs. This will help the edema. You can also try the compression socks. You do need to remove these when you sleep at night. Discharge Date/Time: 10/11/18 19:00
== END 2018-10-11 19:00 | disposition home or self-care (01) ==
LOC: ED 17:43
DX: R60.0 Localized edema (principal); I10 Essential (primary) hypertension; E11.9 Type 2 diabetes mellitus without complications; Z79.4 Long term (current) use of insulin; Z79.82 Long term (current) use of aspirin
CPT/HCPCS: 99283

== ENCOUNTER 2018-12-13 10:18 | Outpatient (CLI) | payer MEDICARE, MEDICAID ==
[2018-12-13 17:54] LABS: CREATININE,URINE 142.1 mg/dL; MICROALBUM/CREATININE RATIO,UR 40.1 ug/mg (<30.0); MICROALBUMIN,URINE 5.7 mg/dL (0-300.0)
[2018-12-13 17:57] LABS: BUN - BLOOD UREA NITROGEN 22 mg/dL (6-20); CALCIUM 8.9 mg/dL (8.5-10.3); CARBON DIOXIDE - CO2 25 mmol/L (21-32); CHLORIDE 108 mmol/L (101-111); CHOL/HDL RATIO 3.9 (<5.0); CHOLESTEROL 116 mg/dL; CREATININE 0.8 mg/dL (0.6-1.2); GFR - MDRD 99 (>89); GLUCOSE 296 mg/dL (70-100); HDL CHOLESTEROL 30 mg/dL; LDL CHOLESTEROL,CALCULATED 65 mg/dL; LDL/HDL RATIO 2.2 (<3.6); SODIUM 139 mmol/L (135-145); VLDL CHOLESTEROL 21 mg/dL
[2018-12-13 18:19] LABS: HEMOGLOBIN A1C 1.19 g/dL; HEMOGLOBIN A1C % 9.9 % (4.6-6.2)
== END 2018-12-13 10:19 | disposition home or self-care (01) ==
LOC: LAB.S 10:18
PROVIDERS: ATTEND Nurse Practitioner
DX: E11.65 Type 2 diabetes mellitus with hyperglycemia (principal); Z79.4 Long term (current) use of insulin
CPT/HCPCS: 36415; 80048; 80061; 82043; 82570; 83036; 83721; 84443

== ENCOUNTER 2020-02-21 09:20 | Emergency (ER) | payer MEDICARE, MEDICAID ==
[2020-02-21 10:14] LABS: BASOPHILS # (AUTO) 0.1 10^3/uL (0.0-0.1); BASOPHILS % (AUTO) 0.7 %; EOSINOPHILS # (AUTO) 0.2 10^3/uL (0.0-0.7); EOSINOPHILS % (AUTO) 2.2 %; HGB - HEMOGLOBIN 14.2 g/dL (14.0-18.0); LYMPHOCYTES # (AUTO) 1.6 10^3/uL (1.5-3.5); LYMPHOCYTES % (AUTO) 21.3 %; MEAN CORPUSCULAR HEMOGLOBIN 28.7 pg (27.0-31.0); MEAN CORPUSCULAR HGB CONC 32.3 g/dL (32.0-36.0); MEAN CORPUSCULAR VOLUME 88.7 fL (80.0-94.0); MEAN PLATELET VOLUME 10.8 fL (7.4-11.4); MONOCYTES # (AUTO) 0.3 10^3/uL (0.0-1.0); MONOCYTES % (AUTO) 3.9 %; NEUTROPHILS # (AUTO) 5.5 10^3/uL (1.5-6.6); NEUTROPHILS % (AUTO) 71.6 %; PLT - PLATELET COUNT 213 10^3/uL (130-450); RED BLOOD COUNT 4.95 10^6/uL (4.70-6.10); RED CELL DISTRIBUTION WIDTH 12.6 % (12.0-15.0); WHITE BLOOD COUNT 7.7 x10^3/uL (4.8-10.8)
--- NOTE | 2020-02-21 10:15 | XRAY Report ---
PROCEDURE: Chest 1 View X-Ray INDICATIONS: Chest Pain TECHNIQUE: One view of the chest was acquired. COMPARISON: 03/01/2018 FINDINGS: Surgical changes and devices: None. Lungs and pleura: No pleural effusions or pneumothorax. Lungs are clear. Mediastinum: Mediastinal contours appear normal. Heart size is normal. Bones and chest wall: No suspicious bony lesions. Overlying soft tissues appear unremarkable. IMPRESSION: No evidence acute pulmonary process. Reviewed by: Valentin Keith MD on 02/21/2020 10:14 AM [facility] Approved by: Valentin Keith MD on 02/21/2020 10:14 AM [facility] Station ID: [id number]
[2020-02-21 10:28] LABS: ALBUMIN 3.6 g/dL (3.2-5.5); BILIRUBIN,TOTAL 0.9 mg/dL (0.2-1.0); CALCIUM 8.7 mg/dL (8.5-10.3); CREATININE 0.8 mg/dL (0.6-1.2); TOTAL PROTEIN 7.1 g/dL (6.7-8.2)
--- NOTE | 2020-02-21 10:44 | ED Physician Documentation ---
PD HPI CHEST PAIN - Stated complaint Stated Complaint: CHEST PX - Chief complaint Chief Complaint: Cardiac - History obtained from History obtained from: Patient, Family - History of Present Illness Timing - onset: How many days ago (3) Timing - onset during: Rest Timing - duration: Days (3) Pain level max: 3 Pain level now: 0 Quality: Sharp Location: Right chest Radiation: No: Jaw, Neck, Back, Abdominal, Left upper extremity, Right upper extremity Improved by: Nothing Worsened by: Other (nothing) Associated symptoms: No: Shortness of air, Diaphoresis, Nausea, Vomiting, Feeling faint / dizzy, General Weakness, Palpitations, Cough - Additional information Additional information: 59-year-old male with a history of right-sided paralysis presents to the emergency department with right-sided chest pain for the past 3 days. Lasts for about 5 minutes at a time. Nothing seems to make it better or worse. Has been out of his glucometer test strips for several days, so has not been taking his insulin. No vomiting. No fevers. Currently asymptomatic. No fevers. No cough. No shortness of breath. No wheezing. No recent travel. No recent antibiotics. Review of Systems Constitutional: denies: Fever, Chills Respiratory: denies: Cough GI: denies: Vomiting, Diarrhea Skin: denies: Rash Musculoskeletal: denies: Neck pain, Back pain Neurologic: denies: Headache PD PAST MEDICAL HISTORY - Past Medical History Cardiovascular: Hypertension, High cholesterol, Other Respiratory: None Neuro: None Endocrine/Autoimmune: Type 2 diabetes GI: GERD, Chronic diarrhea : None HEENT: Other Psych: Depression, Claustrophobia Musculoskeletal: Osteoarthritis, Rheumatoid arthritis, Hemiplegia, Other Derm: None - Past Surgical History Past Surgical History: Yes Ortho: Other Neuro: Other - Present Medications Home Medications: Ambulatory Orders Medication Instructions Recorded Confirmed Omeprazole 20 mg ORAL QDAC 11/26/14 06/15/18 Atorvastatin Calcium 40 mg PO QPM 06/09/15 06/15/18 Aspirin 1 tab PO DAILY 02/13/16 06/15/18 Insulin Glargine,Hum.rec.anlog 140 unit SQ QDBREAKFAST 03/10/16 06/15/18 [Saranya Bunch] Cephalexin [Keflex] 500 mg PO TID #21 capsule 02/06/18 06/15/18 Oxybutynin [Ditropan] 5 mg PO BID #15 tablet 02/06/18 06/15/18 Insulin Aspart [Novolog Flexpen] 8 unit SUBQ ACHS PRN 03/01/18 06/15/18 Diphenoxylate/Atropine [Lomotil] 1 each PO QID PRN #10 tablet 04/30/18 06/15/18 Metformin HCl 2 tab PO BID #120 tablet 06/15/18 Blood Sugar Diagnostic [Glucometer 1 each MC DAILY #30 strip 02/21/20 Strips] - Allergies Allergies/Adverse Reactions: Allergies Allergy/AdvReac Type Severity Reaction Status Date / Time No Known Drug Allergies Allergy Verified 02/21/20 09:43 - Social History Does the pt smoke?: No Smoking Status: Never smoker Does the pt drink ETOH?: No Does the pt have substance abuse?: No - Immunizations Immunizations are current?: Yes - POLST Patient has POLST: No PD ED PE NORMAL - Vitals Vital signs reviewed: Yes - General General: Alert and oriented X 3, No acute distress - HEENT HEENT: Moist mucous membranes - Neck Neck: Supple, no meningeal sign - Cardiac Cardiac: RRR, Strong equal pulses, Other (normal exam of the R chest wall, no tenderness. ) - Respiratory Respiratory: No respiratory distress, Clear bilaterally - Abdomen Abdomen: Soft, Non tender, Non distended - Derm Derm: Warm and dry - Extremities Extremities: No edema, No calf tenderness / cord - Neuro Neuro: Alert and oriented X 3 Results - Vitals Vitals: Vital Signs - 24 hr 02/21/20 02/21/20 02/21/20 09:39 10:33 10:53 Temperature 36.1 C L Heart Rate 76 65 65 Respiratory 20 17 22 Rate Blood Pressure 137/79 H 148/75 H O2 Saturation 96 96 99 02/21/20 11:07 Temperature Heart Rate 61 Respiratory 17 Rate Blood Pressure 151/80 H O2 Saturation 98 Oxygen O2 Source Room air - EKG (time done) 0939 Rate: Rate (enter#) (73) Rhythm: NSR Hoople: Anterior hemiblock (LAFB) Intervals: Normal CA QRS: LVH Ischemia: ST elevation c/w repol - Labs Labs: Laboratory Tests 02/21/20 02/21/20 02/21/20 10:10 10:10 10:10 WBC 7.7 RBC 4.95 Hgb 14.2 Hct 43.9 MCV 88.7 MCH 28.7 MCHC 32.3 RDW 12.6 Plt Count 213 MPV 10.8 Neut # (Auto) 5.5 Lymph # (Auto) 1.6 Ballard # (Auto) 0.3 Eos # (Auto) 0.2 Baso # (Auto) 0.1 Absolute Nucleated RBC 0.00 Nucleated RBC % 0.0 Sodium 138 Potassium 4.4 Chloride 101 Carbon Dioxide 26 Anion Gap 11.0 BUN 23 H Creatinine 0.8 Estimated GFR (MDRD) 98 Glucose 413 H POC Whole Bld Glucose Calcium 8.7 Total Bilirubin 0.9 AST 12 ALT 17 Alkaline Phosphatase 71 Troponin I High Sens 6.2 Total Protein 7.1 Albumin 3.6 Globulin 3.5 Albumin/Globulin Ratio 1.0 Lipase 26 02/21/20 10:53 WBC RBC Hgb Hct MCV MCH MCHC RDW Plt Count MPV Neut # (Auto) Lymph # (Auto) Ballard # (Auto) Eos # (Auto) Baso # (Auto) Absolute Nucleated RBC Nucleated RBC % Sodium Potassium Chloride Carbon Dioxide Anion Gap BUN Creatinine Estimated GFR (MDRD) Glucose POC Whole Bld Glucose 458 H Calcium Total Bilirubin AST ALT Alkaline Phosphatase Troponin I High Sens Total Protein Albumin Globulin Albumin/Globulin Ratio Lipase - Rads (name of study) cxr Radiology: Prelim report reviewed, EMP read contemporaneously, See rad report (no acute findings.) PD MEDICAL DECISION MAKING - ED course Complexity details: reviewed results, re-evaluated patient, considered differential (No ST elevation CA, no aortic dissection, no PE, no tension pneumothorax, no aortic aneurysm), d/w patient, d/w family ED course: Patient with atypical chest pain of unclear etiology. Patient asymptomatic here. He is hyperglycemic and was given insulin. His glucometer test strips have been refilled as well. No evidence of DKA. No vomiting. No abdominal pain. We will have him follow-up with his doctor for further care. Patient and family counseled regarding signs and symptoms for which I believe and urgent re- evaluation would be necessary. Patient with good understanding of and agreement to plan and is comfortable going home at this time This document was made in part using voice recognition software. While efforts are made to proofread this document, sound alike and grammatical errors may occur. Departure - Departure Disposition: 01 Home, Self Care Clinical Impression: Atypical chest pain, Hyperglycemia Condition: Good Instructions: ED Chest Pain Atypical Unkn Cause Follow-Up: Basilia Schreiber PA [Provider Admit Priv/Credential] - Prescriptions: Blood Sugar Diagnostic [Glucometer Strips] 1 each DAILY #30 strip Comments: His blood sugar is over 400 today. We will have him follow-up with his doctor for further care. Was given insulin here. Heart tests are normal. Return if he worsens Discharge Date/Time: 02/21/20 11:20
[2020-02-21] MEDS ORDERED: INSULIN REGULAR HUMAN 100 UNIT/1 ML 10 ML MDV SUBQ STA (10:45)
[2020-02-21 11:10] VITALS: BP 151/80
== END 2020-02-21 11:20 | disposition home or self-care (01) ==
LOC: ED 09:20
DX: R07.89 Other chest pain (principal); E11.65 Type 2 diabetes mellitus with hyperglycemia; Z79.4 Long term (current) use of insulin; T38.3X6A Underdosing of insulin and oral hypoglycemic [antidiabetic] drugs, initial encounter; Z91.128 Patient's intentional underdosing of medication regimen for other reason; I44.4 Left anterior fascicular block; I10 Essential (primary) hypertension; G81.91 Hemiplegia, unspecified affecting right dominant side; Z79.82 Long term (current) use of aspirin
CPT/HCPCS: 36415; 71045; 80053; 83690; 84484; 85025; 93005; 99284; J1815

== ENCOUNTER 2020-05-09 09:43 | Outpatient (CLI) | payer MEDICARE, MEDICAID ==
[2020-05-09 15:37] LABS: ALBUMIN 3.6 g/dL (3.2-5.5); ALKALINE PHOSPHATASE 92 IU/L (42-121); ALT ALANINE AMINOTRANSFERASE 16 IU/L (10-60); AST ASPARTATE AMINOTRANSFERASE 14 IU/L (10-42); BILIRUBIN,TOTAL 0.4 mg/dL (0.2-1.0); BUN - BLOOD UREA NITROGEN 22 mg/dL (6-20); CARBON DIOXIDE - CO2 27 mmol/L (21-32); CHLORIDE 104 mmol/L (101-111); CHOL/HDL RATIO 4.7 (<5.0); CHOLESTEROL 188 mg/dL; CREATININE 0.7 mg/dL (0.6-1.2); GLUCOSE 96 mg/dL (70-100); HDL CHOLESTEROL 40 mg/dL; LDL CHOLESTEROL,CALCULATED 123 mg/dL; LDL/HDL RATIO 3.1 (<3.6); TOTAL PROTEIN 7.2 g/dL (6.7-8.2); VLDL CHOLESTEROL 25 mg/dL
== END 2020-05-09 09:44 | disposition home or self-care (01) ==
LOC: LAB.S 09:43
PROVIDERS: ATTEND Nurse Practitioner Family
DX: I10 Essential (primary) hypertension (principal); E78.5 Hyperlipidemia, unspecified; E11.9 Type 2 diabetes mellitus without complications; K21.9 Gastro-esophageal reflux disease without esophagitis; N40.1 Benign prostatic hyperplasia with lower urinary tract symptoms; R32 Unspecified urinary incontinence; E83.51 Hypocalcemia
CPT/HCPCS: 36415; 80053; 80061; 83721

== ENCOUNTER 2020-06-06 11:56 | Emergency (ER) | payer MEDICARE, MEDICAID ==
[2020-06-06 12:06] VITALS: BP 140/72
[2020-06-06] MEDS ORDERED: BUFFERED LIDOCAINE 10 ML SYRINGE SUBQ STA (12:19)
[2020-06-06] MEDS ORDERED: TETANUS/DIPHTHERIA/PERTUSSIS 0.5 ML SYRINGE IM ONE (12:19)
--- NOTE | 2020-06-06 12:21 | ED Physician Documentation ---
PD HPI WOUND RECHECK - Stated complaint Stated Complaint: LT FINGER INJ - Chief complaint Chief Complaint: Wound - Histroy obtained from History obtained from: Patient, Family - Additional information Additional information: Splinter to L MF 2 days ago. Thought they got t out but now swollen and tender. PD PAST MEDICAL HISTORY - Past Medical History Cardiovascular: Hypertension, High cholesterol, Other Respiratory: None Neuro: None Endocrine/Autoimmune: Type 2 diabetes GI: GERD, Chronic diarrhea : None HEENT: Other Psych: Depression, Claustrophobia Musculoskeletal: Osteoarthritis, Rheumatoid arthritis, Hemiplegia, Other Derm: None - Past Surgical History Past Surgical History: Yes Ortho: Other Neuro: Other - Present Medications Home Medications: Ambulatory Orders Medication Instructions Recorded Confirmed Omeprazole 20 mg ORAL QDAC 11/26/14 06/15/18 Atorvastatin Calcium 40 mg PO QPM 06/09/15 06/15/18 Aspirin 1 tab PO DAILY 02/13/16 06/15/18 Insulin Glargine,Hum.rec.anlog 140 unit SQ QDBREAKFAST 03/10/16 06/15/18 [Saranya Bunch] Oxybutynin [Ditropan] 5 mg PO BID #15 tablet 02/06/18 06/15/18 cephALEXin [Keflex] 500 mg PO TID #21 capsule 02/06/18 06/15/18 Insulin Aspart [Novolog Flexpen] 8 unit SUBQ ACHS PRN 03/01/18 06/15/18 Diphenoxylate/Atropine [Lomotil] 1 each PO QID PRN #10 tablet 04/30/18 06/15/18 Metformin HCl 2 tab PO BID #120 tablet 06/15/18 Blood Sugar Diagnostic [Glucometer 1 each MC DAILY #30 strip 02/21/20 Strips] cephALEXin [Keflex] 500 mg PO Q6H #28 cap 06/06/20 - Allergies Allergies/Adverse Reactions: Allergies Allergy/AdvReac Type Severity Reaction Status Date / Time No Known Drug Allergies Allergy Verified 06/06/20 12:06 - Social History Does the pt smoke?: No Smoking Status: Never smoker Does the pt drink ETOH?: No Does the pt have substance abuse?: No - Immunizations Immunizations are current?: Yes - POLST Patient has POLST: No PD ED PE NORMAL - Vitals Vital signs reviewed: Yes - General General: Alert and oriented X 3, No acute distress - Extremities Extremities: Other (On the pulp of on the pulp of the left middle finger there is a abscess without significant cellulitis. It measures about 1-1/4 cm in diameter.) - Neuro Neuro: Alert and oriented X 3, Normal speech Results - Vitals Vitals: Vital Signs - 24 hr 06/06/20 12:03 Temperature 36.0 C L Heart Rate 85 Respiratory 16 Rate Blood Pressure 140/72 H O2 Saturation 97 Oxygen O2 Source Room air Procedures - Abscess I&D (location) L 3rd finger Preparation: Lidocaine 1% (digital block with buffered lidocaine with excellent anesthesia) Incision: Incised with scalpel, Purulent drainage, Loculations broken, Culture obtained, Other (explored with no FB noted.) Other: Pt tolerated well, Dressing applied, Antibiotic prescribed (note he has DMII) Departure - Departure Disposition: 01 Home, Self Care Clinical Impression: Diabetes Qualifiers: Diabetes mellitus type: type 2 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 If antibiotic change is necessary we will call you. Return if worse in the meantime, especially if you develop increased pain, fevers, cannot keep down the medication. Otherwise follow-up with your physician in approximately 2-3 days.
== END 2020-06-06 12:45 | disposition home or self-care (01) ==
LOC: ED 11:56
DX: L02.512 Cutaneous abscess of left hand (principal); E11.65 Type 2 diabetes mellitus with hyperglycemia; Z79.4 Long term (current) use of insulin; I10 Essential (primary) hypertension; Z79.82 Long term (current) use of aspirin; Z23 Encounter for immunization
CPT/HCPCS: 10060; 87070; 87077; 87181; 87205; 90471

== ENCOUNTER 2020-08-09 23:00 | Outpatient (CLI) | payer MEDICARE, MEDICAID | END 2020-08-09 23:01 | disposition critical access hospital (66) | LOC: EMS 23:00 | DX: R53.1 Weakness (principal); Z74.2 Need for assistance at home and no other household member able to render care | CPT/HCPCS: A0425; A0429 ==

== ENCOUNTER 2020-08-09 23:31 | Emergency (ER) | payer MEDICARE, MEDICAID ==
--- OUTSIDE RECORDS SUMMARY | 2020-08-09 23:45 | EXTERNAL MEDICAL SUMMARY RPT | Continuity of Care Document ---
:1960 Demographics Phone Unavailable Preferred Language Unknown Marital Status Unknown Rastafari Affiliation Unknown Race Unknown Ethnic Group Unknown Author Organization [place] Address [address] [place] [address] Phone Social History date description facility [id number]
[2020-08-10 00:21] LABS: BASOPHILS # (AUTO) 0.1 10^3/uL (0.0-0.1); BASOPHILS % (AUTO) 0.6 %; EOSINOPHILS # (AUTO) 0.2 10^3/uL (0.0-0.7); EOSINOPHILS % (AUTO) 1.5 %; HCT - HEMATOCRIT 44.9 % (42.0-52.0); HGB - HEMOGLOBIN 14.3 g/dL (14.0-18.0); LYMPHOCYTES # (AUTO) 2.4 10^3/uL (1.5-3.5); LYMPHOCYTES % (AUTO) 23.9 %; MEAN CORPUSCULAR HEMOGLOBIN 28.1 pg (27.0-31.0); MEAN CORPUSCULAR HGB CONC 31.8 g/dL (32.0-36.0); MEAN CORPUSCULAR VOLUME 88.4 fL (80.0-94.0); MEAN PLATELET VOLUME 10.8 fL (7.4-11.4); MONOCYTES # (AUTO) 0.5 10^3/uL (0.0-1.0); MONOCYTES % (AUTO) 4.7 %; NEUTROPHILS # (AUTO) 6.9 10^3/uL (1.5-6.6); NEUTROPHILS % (AUTO) 69.1 %; PLT - PLATELET COUNT 225 10^3/uL (130-450); RED BLOOD COUNT 5.08 10^6/uL (4.70-6.10); RED CELL DISTRIBUTION WIDTH 13.2 % (12.0-15.0); WHITE BLOOD COUNT 9.9 x10^3/uL (4.8-10.8)
[2020-08-10 00:31] LABS: ALBUMIN 3.8 g/dL (3.2-5.5); ALBUMIN/GLOBULIN RATIO 1.1 (1.0-2.2); BILIRUBIN,TOTAL 0.5 mg/dL (0.2-1.0); CALCIUM 9.6 mg/dL (8.5-10.3); CREATININE 0.8 mg/dL (0.6-1.2); POTASSIUM 3.5 mmol/L (3.5-5.0); TOTAL PROTEIN 7.2 g/dL (6.7-8.2)
[2020-08-10 02:19] LABS: BILIRUBIN,URINE NEGATIVE (NEGATIVE); GLUCOSE, URINE (UA) >=1000 mg/dL (NEGATIVE); KETONES,URINE (UA) NEGATIVE (NEGATIVE); LEUKOCYTE ESTERASE, URINE NEGATIVE (NEGATIVE); NITRITE,URINE NEGATIVE (NEGATIVE); OCCULT BLOOD,URINE TRACE-INTA (NEGATIVE); PROTEIN,URINE 30 mg/dL (NEGATIVE); UROBILINOGEN,URINE 0.2 (NORMAL) E.U./dL (NORMAL)
[2020-08-10 02:20] LABS: CLARITY,URINE CLEAR (CLEAR)
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
[2020-08-10 02:22] VITALS: BP 159/73
[2020-08-10 02:26] LABS: BACTERIA,URINE Rare /HPF (None Seen); RBC,URINE 0-5 /HPF (0-5); SQUAMOUS EPITHELIAL CELL,UR MOD Squamous (<= Few); WBC,URINE 0-3 /HPF (0-3)
== END 2020-08-10 02:39 | disposition home or self-care (01) ==
LOC: EDUNIT# → ED 23:31
DX: R32 Unspecified urinary incontinence (principal); R15.9 Full incontinence of feces; R26.81 Unsteadiness on feet; R47.1 Dysarthria and anarthria; Z87.820 Personal history of traumatic brain injury; I10 Essential (primary) hypertension; E11.9 Type 2 diabetes mellitus without complications; Z79.4 Long term (current) use of insulin; Z79.82 Long term (current) use of aspirin
CPT/HCPCS: 36415; 80053; 81001; 81003; 83690; 85025; 87086; 99281; 99283

== ENCOUNTER 2022-01-20 09:50 | Outpatient (CLI) | payer MEDICARE, MEDICAID | END 2022-01-20 09:51 | disposition home or self-care (01) | LOC: RT 09:50 | PROVIDERS: ATTEND Nurse Practitioner Family | DX: R00.1 Bradycardia, unspecified (principal) | CPT/HCPCS: 93005 ==

== ENCOUNTER 2022-09-04 13:46 | Emergency (ER) | payer MEDICARE, MEDICAID ==
[2022-09-04 14:11] VITALS: BP 154/76
--- NOTE | 2022-09-04 14:16 | ED Physician Documentation ---
PD HPI UPPER EXT INJURY - Stated complaint Stated Complaint: RT SHOULDER INJ - Chief complaint Chief Complaint: General - History obtained from History obtained from: Patient, Caregiver - History of Present Illness Location: Right, Clavicle, Shoulder Type of injury: Fall (onto right shoulder, with pain at clsvicle/AC area) Timing - onset: Today Timing - details: Abrupt onset, Still present Improved by: Rest Worsened by: Moving, Palpating Associated symptoms: No: Weakness, Numbness Similar symptoms before: Has not had sx before Review of Systems Skin: denies: Abrasion (s) Musculoskeletal: denies: Neck pain, Back pain Neurologic: denies: Altered mental status, Headache, Head injury, LOC PD PAST MEDICAL HISTORY - Past Medical History Cardiovascular: Hypertension, High cholesterol, Other Respiratory: None Neuro: None, Head injury Endocrine/Autoimmune: Type 2 diabetes GI: GERD, Chronic diarrhea : None HEENT: Other Psych: Depression, Claustrophobia Musculoskeletal: Osteoarthritis, Rheumatoid arthritis, Hemiplegia, Other Derm: None - Past Surgical History Past Surgical History: Yes Ortho: Other Neuro: Other - Present Medications Home Medications: Ambulatory Orders Medication Instructions Recorded Confirmed Omeprazole 20 mg ORAL QDAC 11/26/14 06/15/18 Atorvastatin Calcium 40 mg PO QPM 06/09/15 06/15/18 Aspirin 1 tab PO DAILY 02/13/16 06/15/18 Insulin Glargine,Hum.rec.anlog 140 unit SQ QDBREAKFAST 03/10/16 06/15/18 [Saranya Bunch] Oxybutynin [Ditropan] 5 mg PO BID #15 tablet 02/06/18 06/15/18 Insulin Aspart [Novolog Flexpen] 8 unit SUBQ ACHS PRN 03/01/18 06/15/18 Diphenoxylate/Atropine [Lomotil] 1 each PO QID PRN #10 tablet 04/30/18 06/15/18 Metformin HCl 2 tab PO BID #120 tablet 06/15/18 Blood Sugar Diagnostic [Glucometer 1 each MC DAILY #30 strip 02/21/20 08/10/20 Strips] Lisinopril [Zestril] 20 mg PO DAILY 08/10/20 08/10/20 Tamsulosin [Flomax] 0.4 mg PO DAILY PM 08/10/20 08/10/20 - Allergies Allergies/Adverse Reactions: Allergies Allergy/AdvReac Type Severity Reaction Status Date / Time No Known Drug Allergies Allergy Verified 08/09/20 23:44 - Social History Does the pt smoke?: No Smoking Status: Never smoker Does the pt drink ETOH?: No Does the pt have substance abuse?: No - Immunizations Immunizations are current?: Yes - POLST Patient has POLST: No PD ED PE NORMAL - Vitals Vital signs reviewed: Yes - General General: No acute distress, Well developed/nourished, Other (irented to person and place. Histoyr of [facility] so not well oriented at baseline. ) - HEENT HEENT: Atraumatic - Neck Neck: Supple, no meningeal sign, No bony TTP - Respiratory Respiratory: No respiratory distress, Clear bilaterally, Other (no chestwall tenderness) - Abdomen Abdomen: Soft, Non tender - Back Back: No spinal TTP - Derm Derm: Normal color, Warm and dry - Extremities Extremities: Other (right lateral clavicle to AC area with some swelling and upward displacement of clavicle wihtout tenting of skin. ) - Neuro Neuro: No motor deficit, No sensory deficit, Normal speech Results - Vitals Vitals: Vital Signs - 24 hr 09/04/22 13:55 Temperature 36.3 C L Heart Rate 51 L Respiratory 18 Rate Blood Pressure 154/76 H O2 Saturation 98 Oxygen O2 Source Room air - Rads (name of study) right shouclder Relevant Findings:: Prelim report reviewed, EMP independent interpretation of test (distal clavicle fracture.), See rad report PD Medical Decision Making - ED course Complexity details: reviewed results (xray confirms distal clavicle fracture. ), considered differential (accidnetl fall, caregiver says pt with some poor balalnce rleated to prior [facility]. Has apprent distl clavicle frcture. Will get xray. ), d/w patient, other (he is here with one of his regular caregivers, who will help the patient with treatment, sling use, etc. ) Departure - Departure Disposition: 01 Home, Self Care Clinical Impression: Fall from slip, trip, or stumble Qualifiers: Encounter type: initial encounter Qualified Code(s): W01.0XXA - Fall on same level from slipping, tripping and stumbling without subsequent striking against object, initial encounter Clavicle fracture Qualifiers: Encounter type: initial encounter Clavicle location: lateral end Fracture type: closed Fracture alignment: displaced Laterality: right Qualified Code(s): S42.031A - Displaced fracture of lateral end of right clavicle, initial encounter for closed fracture Condition: Stable Record reviewed to determine appropriate education?: Yes Instructions: ED Fx Clavicle Comments: The end of your collarbone is broken. Use the sling to help support the shoulder over the next 3 to 4 weeks. Follow-up with your primary care or orthopedics for reevaluation at about 1-1/2 weeks. Physical therapy may be a useful adjunct as well. In the short-term I would suggest some Tylenol 650 mg 4 times daily for the next week to 10 days. Ice elevate and rest the area for swelling today. Discharge Date/Time: 09/04/22 14:50
--- NOTE | 2022-09-04 14:46 | XRAY Report ---
PROCEDURE: Shoulder 3 View RT INDICATIONS: trauma TECHNIQUE: 3 views of the shoulder were acquired. COMPARISON: None. FINDINGS: Bones: There is a fracture of the right distal clavicle prior to the AC joint. There is elevation of the proximal fracture fragment and mild comminution of the fracture. The glenohumeral joint remains intact. No other fractures are seen. Soft tissues: There are wispy linear calcifications at the rotator cuff insertion adjacent to the hu meral head. No radiodense foreign bodies. Visible portions the right lung are normal. IMPRESSION: 1. Nondisplaced, slightly comminuted right distal clavicular fracture without acromioclavicular dislo cation. Reviewed by: Aggie Padilla MD on 09/04/2022 1:45 PM PAVAN Approved by: Aggie Padilla MD on 09/04/2022 1:45 PM PAVAN Station ID: [id number]
== END 2022-09-04 14:50 | disposition home or self-care (01) ==
LOC: ED 13:46
DX: S42.034A Nondisplaced fracture of lateral end of right clavicle, initial encounter for closed fracture (principal); W18.39XA Other fall on same level, initial encounter; Y93.89 Activity, other specified
CPT/HCPCS: 99283

== ENCOUNTER 2022-09-13 08:00 | Outpatient (CLI) | payer MEDICARE, MEDICAID ==
--- NOTE | 2022-09-13 11:28 | XRAY Report ---
PROCEDURE: Clavicle RT INDICATIONS: RIGHT CLAVICLE FRACTURE TECHNIQUE: 2 views of the clavicle were acquired. COMPARISON: 09/04/2022 FINDINGS: Bones: Comminuted right distal clavicle fracture with distal fragment articulating with the acromion . Superior displacement of the proximal portion persist. Soft tissues: No suspicious calcifications. IMPRESSION: Comminuted right distal clavicle fracture is similar to prior as described above. Reviewed by: Mason Garcia MD on 09/13/2022 11:27 AM PDT Approved by: Mason Garcia MD on 09/13/2022 11:27 AM PDT Station ID: [id number]
== END 2022-09-13 23:59 | disposition home or self-care (01) ==
LOC: DI.WOS 08:00
PROVIDERS: ATTEND Orthopaedic Surgery
DX: S42.031A Displaced fracture of lateral end of right clavicle, initial encounter for closed fracture (principal)

== ENCOUNTER 2022-09-30 08:00 | Outpatient (CLI) | payer MEDICARE, MEDICAID ==
--- NOTE | 2022-09-30 12:13 | XRAY Report ---
PROCEDURE: Clavicle RT INDICATIONS: RIGHT CLAVICLE FRACTURE TECHNIQUE: 2 views of the clavicle were acquired. COMPARISON: X-ray right shoulder, 09/04/2022. FINDINGS: Bones: There is a comminuted distal clavicular shaft fracture with displacement and superior angulat ion. There is callus formation. No suspicious bony lesions. Soft tissues: Calcific densities over the humeral head suggesting rotator cuff calcific tendinitis. IMPRESSION: 1. Healing distal clavicular shaft fracture. 2. Suspect rotator cuff calcific tendinitis. Reviewed by: Andrew Malin MD on 09/30/2022 12:11 PM PDT Approved by: Andrew Malin MD on 09/30/2022 12:11 PM PDT Station ID: [id number]
== END 2022-09-30 23:59 | disposition home or self-care (01) ==
LOC: DI.WOS 08:00
PROVIDERS: ATTEND Orthopaedic Surgery
DX: S42.021D Displaced fracture of shaft of right clavicle, subsequent encounter for fracture with routine healing (principal)

== ENCOUNTER 2022-11-11 08:00 | Outpatient (CLI) | payer MEDICARE, MEDICAID ==
--- NOTE | 2022-11-11 18:04 | XRAY Report ---
PROCEDURE: Clavicle RT INDICATIONS: RIGHT CLAVICLE FX TECHNIQUE: 2 views of the clavicle were acquired. COMPARISON: 09/30/2022, 09/13/2022 FINDINGS: Bones: Subacute appearing comminuted and displaced distal right clavicular shaft fracture is again s een with significant depression and overlapping at distal clavicular shaft fracture site. Overall ali gnment of right clavicle is unchanged from prior study. No new fracture or dislocation. Right acromio clavicular joint and glenohumeral joint osteoarthritic changes are again seen. Soft tissues: Small calcifications are noted adjacent to greater tuberosity of humeral head suggesti ve of hydroxyapatite deposition disease. IMPRESSION: 1. Subacute appearing comminuted and displaced distal right clavicular fracture with stable right cla vicular alignment. No new fracture or dislocation. Right shoulder joint osteoarthritis. 2. Suggestion of calcific tendinitis. Reviewed by: Osvaldo Simeon MD on 11/11/2022 6:03 PM PDT Approved by: Osvaldo Simeon MD on 11/11/2022 6:03 PM PDT Station ID: [id number]
== END 2022-11-11 23:59 | disposition home or self-care (01) ==
LOC: DI.WOS 08:00
PROVIDERS: ATTEND Orthopaedic Surgery
DX: S42.031D Displaced fracture of lateral end of right clavicle, subsequent encounter for fracture with routine healing (principal); M19.011 Primary osteoarthritis, right shoulder

== ENCOUNTER 2023-08-13 15:01 | Outpatient (CLI) | payer MEDICARE, MEDICAID | END 2023-08-13 23:59 | disposition EMS.NT | LOC: EMS 15:01 | DX: Z03.89 Encounter for observation for other suspected diseases and conditions ruled out (principal) ==

== ENCOUNTER 2023-09-30 19:41 | Inpatient (IN) | payer MEDICARE, MEDICAID ==
[2023-09-30 20:44] LABS: BASOPHILS % (AUTO) 0.1 %; HCT - HEMATOCRIT 33.1 % (42.0-52.0); HGB - HEMOGLOBIN 10.9 g/dL (14.0-18.0); LYMPHOCYTES # (AUTO) 0.6 10^3/uL (1.5-3.5); LYMPHOCYTES % (AUTO) 4.4 %; MEAN CORPUSCULAR HEMOGLOBIN 30.2 pg (27.0-31.0); MEAN CORPUSCULAR HGB CONC 32.9 g/dL (32.0-36.0); MEAN CORPUSCULAR VOLUME 91.7 fL (80.0-94.0); MEAN PLATELET VOLUME 9.8 fL (7.4-11.4); MONOCYTES # (AUTO) 0.5 10^3/uL (0.0-1.0); NEUTROPHILS # (AUTO) 11.7 10^3/uL (1.5-6.6); NEUTROPHILS % (AUTO) 90.8 %; PLT - PLATELET COUNT 232 10^3/uL (130-450); RED BLOOD COUNT 3.61 10^6/uL (4.70-6.10); RED CELL DISTRIBUTION WIDTH 14.6 % (12.0-15.0); WHITE BLOOD COUNT 12.8 x10^3/uL (4.8-10.8)
[2023-09-30 21:01] LABS: LIPASE 12 U/L (11-82)
[2023-09-30 21:05] LABS: ALBUMIN 3.7 g/dL (3.2-5.5); ALBUMIN/GLOBULIN RATIO 1.1 (1.0-2.2); ALKALINE PHOSPHATASE 51 IU/L (42-121); ALT ALANINE AMINOTRANSFERASE 25 IU/L (10-60); AST ASPARTATE AMINOTRANSFERASE 51 IU/L (10-42); BILIRUBIN,TOTAL 0.6 mg/dL (0.2-1.0); CALCIUM 9.2 mg/dL (8.5-10.3); CARBON DIOXIDE - CO2 21 mmol/L (21-32); CHLORIDE 89 mmol/L (101-111); CREATININE 3.4 mg/dL (0.6-1.3); GFR - MDRD 18 (>89); GLUCOSE 80 mg/dL (74-104); POTASSIUM 5.9 mmol/L (3.5-4.5); SODIUM 129 mmol/L (135-145); TOTAL PROTEIN 7.2 g/dL (6.4-8.9)
[2023-09-30 21:16] LABS: KETONES, SERUM (ACETEST) NEGATIVE (NEGATIVE)
--- NOTE | 2023-09-30 21:17 | CT Report ---
PROCEDURE: Head WO INDICATIONS: fall, head injury, ALOC x 1 week TECHNIQUE: Noncontrast 4.5 mm thick angled axial sections acquired from the foramen magnum to the vertex. For r adiation dose reduction, the following was used: automated exposure control, adjustment of mA and/or kV according to patient size. COMPARISON: None. FINDINGS: Image quality: Diagnostic. CSF spaces: Basal cisterns are patent. No extra-axial fluid collections. Ventricles are normal in size and shape. Brain: No midline shift. No intracranial masses or hemorrhage. No mass effect. Yanes-white matter i nterface is maintained. There is severe cerebral volume loss for age with resultant ventricular and s ulcal prominence. There are extensive periventricular and deep white matter chronic small vessel isch emic changes. There are areas of encephalomalacia involving the right frontal, left frontal, and medi al left occipital lobes compatible with remote infarction. Atherosclerotic calcifications are noted i n the intracranial segments of the bilateral internal carotid arteries. Skull and face: Calvarium and visualized facial bones are intact, without suspicious lesions. Sinuses: Visualized sinuses and mastoids are clear. IMPRESSION: No acute intracranial pathology. No acute calvarial fractures. Significant cerebral volume loss and changes of chronic small vessel ischemic disease with encephalom alacia of the bifrontal and medial left occipital lobes compatible with remote infarction. Reviewed by: Brayden Cole MD on 09/30/2023 9:16 PM PDT Approved by: Brayden Cole MD on 09/30/2023 9:16 PM PDT Station ID: [id number]
[2023-09-30 21:19] LABS: VBG BASE EXCESS -4.2 mmol/L (-2 - +2); VBG HCO3 20.3 mmol/L (23-28); VBG OXYGEN SATURATION 47.7 % (60-80); VBG PCO2 35.4 mmHg (41-51); VBG PH 7.377 (7.31-7.41); VBG PO2 28.1 mmHg (25-47); VBG TOTAL CO2 21.4 mmol/L (24-29)
[2023-09-30 21:20] LABS: BUN - BLOOD UREA NITROGEN 141 mg/dL (6-20)
[2023-09-30] MEDS: SODIUM ZIRCONIUM CYCLOSILICATE 5 GM PACKET PO STA (21:42)
[2023-09-30] MEDS: SODIUM CHLORIDE 0.9% 1,000 ML IV STA (21:42)
--- NOTE | 2023-09-30 22:22 | ED Physician Documentation ---
History of Present Illness - Stated complaint Stated Complaint: LEG SWELLING/WEAKNESS/GI - Chief complaint Chief Complaint: Trauma Ext - History obtained from History obtained from: Patient, Family - History of Present Illness Timing: Today - Additonal information Additional information: Patient is a 63-year-old male with a history of traumatic brain injury who presents to the emergency department with altered mental status for the past several days. Family states he is not eating and drinking well. They state that his ankles are more swollen than usual. He is a diabetic. They state that his blood sugars have been both high and low. No fevers. No cough or congestion. He did fall and strike his head several days ago on garbage cans and has bruising to the forehead and face. No neck or back pain. 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 Review of Systems Constitutional: denies: Fever, Chills Respiratory: denies: Cough GI: denies: Vomiting, Diarrhea PD PAST MEDICAL HISTORY - Past Medical History Cardiovascular: Hypertension, High cholesterol, Other Respiratory: None Neuro: None, Head injury Endocrine/Autoimmune: Type 2 diabetes GI: GERD, Chronic diarrhea : None HEENT: Other Psych: Depression, Claustrophobia Musculoskeletal: Osteoarthritis, Rheumatoid arthritis, Hemiplegia, Other Derm: None - Past Surgical History Past Surgical History: Yes Ortho: Other Neuro: Other - Present Medications Home Medications: Ambulatory Orders Medication Instructions Recorded Confirmed Omeprazole 20 mg ORAL QDAC 11/26/14 06/15/18 Atorvastatin Calcium 40 mg PO QPM 06/09/15 06/15/18 Aspirin 1 tab PO DAILY 02/13/16 06/15/18 Insulin Glargine,Hum.rec.anlog 140 unit SQ QDBREAKFAST 03/10/16 06/15/18 [Saranya Bunch] Oxybutynin [Ditropan] 5 mg PO BID #15 tablet 02/06/18 06/15/18 Insulin Aspart [Novolog Flexpen] 8 unit SUBQ ACHS PRN 03/01/18 06/15/18 Diphenoxylate/Atropine [Lomotil] 1 each PO QID PRN #10 tablet 04/30/18 06/15/18 Metformin HCl 2 tab PO BID #120 tablet 06/15/18 Blood Sugar Diagnostic [Glucometer 1 each MC DAILY #30 strip 02/21/20 08/10/20 Strips] Lisinopril [Zestril] 20 mg PO DAILY 08/10/20 08/10/20 Tamsulosin [Flomax] 0.4 mg PO DAILY PM 08/10/20 08/10/20 - Allergies Allergies/Adverse Reactions: Allergies Allergy/AdvReac Type Severity Reaction Status Date / Time No Known Drug Allergies Allergy Verified 09/30/23 20:10 - Social History Does the pt smoke?: No Smoking Status: Never smoker Does the pt drink ETOH?: No Does the pt have substance abuse?: No - Immunizations Immunizations are current?: Yes - POLST Patient has POLST: No PD ED PE NORMAL - Vitals Vital signs reviewed: Yes - General General: No acute distress, Well developed/nourished, Other (alert, oriented to person only) - HEENT HEENT: PERRL, Other (dry lips and tongue) - Neck Neck: Supple, no meningeal sign - Cardiac Cardiac: RRR, Strong equal pulses - Respiratory Respiratory: No respiratory distress, Clear bilaterally - Abdomen Abdomen: Soft, Other (Mildly distended, nontender) - Back Back: Other (pressure ulcer to sacral area) - Derm Derm: Warm and dry - Extremities Extremities: Other (1+ BLE edema, mid tibia to feet) - Neuro Neuro: Other (alert, at his normal baseline) - Psych Psych: Normal mood, Normal affect Results - Vitals Vitals: Vital Signs - 24 hr 09/30/23 09/30/23 09/30/23 19:50 20:58 21:30 Temperature 36.5 C Heart Rate 89 89 Respiratory 18 21 21 Rate Blood Pressure 109/71 108/86 H 108/86 H O2 Saturation 100 97 97 09/30/23 09/30/23 22:00 23:00 Temperature Heart Rate 85 89 Respiratory 19 21 Rate Blood Pressure 117/71 108/86 H O2 Saturation 93 97 Oxygen O2 Source Room air - EKG (time done) 2130 EKG releavant findings:: EKG personally interpreted by author of this note. Relevant findings are: Rate: Rate (enter#) (89) Rhythm: NSR [place]: Other (LAFB) Intervals: RBBB - Labs Labs: Laboratory Tests 09/30/23 09/30/23 09/30/23 20:38 20:38 20:38 WBC 12.8 H RBC 3.61 L Hgb 10.9 L Hct 33.1 L MCV 91.7 MCH 30.2 MCHC 32.9 RDW 14.6 Plt Count 232 MPV 9.8 Neut # (Auto) 11.7 H Lymph # (Auto) 0.6 L [place] # (Auto) 0.5 Eos # (Auto) 0.0 Baso # (Auto) 0.0 Absolute Nucleated RBC 0.00 Nucleated RBC % 0.0 VBG pH VBG pCO2 VBG pO2 VBG HCO3 VBG Total CO2 VBG O2 Saturation VBG Base Excess Sodium 129 L Potassium 5.9 H Chloride 89 L Carbon Dioxide 21 Anion Gap 19.0 H BUN 141 H* Creatinine 3.4 H Estimated GFR (MDRD) 18 L Glucose 80 Calcium 9.2 Total Bilirubin 0.6 AST 51 H ALT 25 Alkaline Phosphatase 51 B-Natriuretic Peptide 222 H Total Protein 7.2 Albumin 3.7 Globulin 3.5 Albumin/Globulin Ratio 1.1 Lipase 12 Urine Color Urine Clarity Urine pH Ur Specific [place] Urine Protein Urine Glucose (UA) Urine Ketones Urine Occult Blood Urine Nitrite Urine Bilirubin Urine Urobilinogen Ur Leukocyte Esterase Urine RBC Urine WBC Ur Squamous Epith Cells Urine Bacteria Ur Microscopic Review Urine Culture Comments Serum Ketones NEGATIVE 09/30/23 09/30/23 21:13 22:20 WBC RBC Hgb Hct MCV MCH MCHC RDW Plt Count MPV Neut # (Auto) Lymph # (Auto) [place] # (Auto) Eos # (Auto) Baso # (Auto) Absolute Nucleated RBC Nucleated RBC % VBG pH 7.377 VBG pCO2 35.4 L VBG pO2 28.1 VBG HCO3 20.3 L VBG Total CO2 21.4 L VBG O2 Saturation 47.7 L VBG Base Excess -4.2 L Sodium Potassium Chloride Carbon Dioxide Anion Gap BUN Creatinine Estimated GFR (MDRD) Glucose Calcium Total Bilirubin AST ALT Alkaline Phosphatase B-Natriuretic Peptide Total Protein Albumin Globulin Albumin/Globulin Ratio Lipase Urine Color YELLOW Urine Clarity HAZY Urine pH 7.5 Ur Specific [place] 1.010 Urine Protein NEGATIVE Urine Glucose (UA) NEGATIVE Urine Ketones NEGATIVE Urine Occult Blood LARGE H Urine Nitrite NEGATIVE Urine Bilirubin NEGATIVE Urine Urobilinogen 0.2 (NORMAL) Ur Leukocyte Esterase SMALL H Urine RBC TNTC H Urine WBC >25 H Ur Squamous Epith Cells NONE SEEN Urine Bacteria Moderate H Ur Microscopic Review INDICATED Urine Culture Comments INDICATED Serum Ketones - Rads (name of study) CT head Relevant Findings:: Final report received, See rad report CT abd/pelvis Relevant Findings:: Final report received, See rad report PD Medical Decision Making - ED course Complexity details: reviewed results, re-evaluated patient, considered differential, d/w patient, d/w family, d/w consultant in ergonomics and safety ED course: 63-year-old male with uremia, urinary retention, UTI, acute renal failure. Gi iza a dose of Rocephin. Bedside ultrasound reveals a very enlarged bladder. A Maya catheter was placed. Approximately 2675 mL of urine was drained. His baseline creatinine is around 0.6-0.7. He is at 3.4 today. His normal BUN is around 26-30. He has at 141 today. Given IV fluids. His potassium is elevated but does not have any T wave changes. He was given Lokelma. His blood sugar is 80. Head CT does not show any acute abnormalities, he does have significant cerebral volume loss and encephalomalacia. His CT abdomen pelvis shows a large amount of constipation and marked distention of the stomach. No evidence of small bowel obstruction. Would consider repeat CT with contrast once renal function improves. Given the acute onset of altered mental status, no history of kidney issues. I do not feel that this is likely going to require nephrology and dialysis. We do have urology available at this hospital. Discussed the case with Dr. Morillo, telehospitalist, requested a repeat BMP to ensure that his labs are improving prior to admission. Patient will be signed out to Dr. Chew awaiting repeat labs. Departure - Departure Disposition: 66 [facility] DC/Xfer Clinical Impression: Uremia, Acute urinary retention, Hyperkalemia Acute kidney failure Qualifiers: Acute renal failure type: unspecified Qualified Code(s): N17.9 - Acute kidney failure, unspecified Constipation Qualifiers: Constipation type: unspecified constipation type Qualified Code(s): K59.00 - Constipation, unspecified UTI (urinary tract infection) Qualifiers: Urinary tract infection type: acute cystitis Hematuria presence: without hematuria Qualified Code(s): N30.00 - Acute cystitis without hematuria Condition: Stable Forms: PCP List
[2023-09-30 22:29] LABS: BILIRUBIN,URINE NEGATIVE (NEGATIVE); GLUCOSE, URINE (UA) NEGATIVE (NEGATIVE); KETONES,URINE (UA) NEGATIVE (NEGATIVE); LEUKOCYTE ESTERASE, URINE SMALL (NEGATIVE); NITRITE,URINE NEGATIVE (NEGATIVE); OCCULT BLOOD,URINE LARGE (NEGATIVE); PH,URINE 7.5 PH (5.0-7.5); PROTEIN,URINE NEGATIVE (NEGATIVE); UROBILINOGEN,URINE 0.2 (NORMAL) E.U./dL (NORMAL)
[2023-09-30 22:30] LABS: CLARITY,URINE HAZY (CLEAR)
[2023-09-30 22:37] LABS: RBC,URINE TNTC /HPF (0-5); SQUAMOUS EPITHELIAL CELL,UR NONE SEEN (<= Few); WBC,URINE >25 /HPF (0-3)
[2023-09-30 22:38] LABS: BACTERIA,URINE Moderate /HPF (None Seen)
--- NOTE | 2023-09-30 22:56 | CT Report ---
PROCEDURE: Abdomen/Pelvis WO INDICATIONS: abd pain, JONO TECHNIQUE: A CT scan of the abdomen and pelvis was performed without the use of intravenous contrast. Images we re recorded and evaluated at appropriate window settings. Reformats: coronal and sagittal. For radiat ion dose reduction, the following was used: automated exposure control, adjustment of mA and/or kV ac cording to patient size. COMPARISON: 03/01/2018 FINDINGS: Image quality: Very limited evaluation of the abdomen and pelvis due to lack of inherent contrast bet ween soft tissue structures. Lack of intravenous contrast further limits evaluation. Lower chest: Bibasilar atelectasis with patchy/nodular consolidations of the dependent portions of th e bilateral lower lobes with associated airway thickening. Similar findings noted in the right middle lobe. Findings may represent pneumonia versus aspiration. Liver: No contour-deforming mass. Gallbladder: Within the limitation of the study, gallbladder appears unremarkable. Biliary tree: No intrahepatic or extrahepatic dilation, accounting for age. Spleen: No splenomegaly. Pancreas: No definite pancreatic ductal dilation. No definite peripancreatic inflammation. Adrenals: No adrenal nodule. Kidneys and ureters: No hydronephrosis. No contour-deforming mass. Scattered vascular calcification o f the bilateral renal hilar vessels. Stomach, bowel and peritoneum: Marked gastric distention with internal ingested material. Very large volume of fecal material which appears mildly impacted seen throughout the ascending, transverse, and proximal descending colon. No evidence for abnormal wall thickening. No definite small bowel wall th ickening. No evidence to suggest small bowel obstruction. No pathologic free fluid. No evidence for f ree air. Lymph nodes: No definite central or retroperitoneal adenopathy. Vessels: No infrarenal aortic aneurysm. Reproductive organs: Unremarkable. Bladder: Urinary bladder decompressed by Maya catheter. Pelvic lymph nodes: No adenopathy by size criteria. Bones: No aggressive osseous abnormality. No acute compression fractures. Multilevel spondylosis. Other: No significant ventral or inguinal hernia. Chronic appearing posterior right rib fracture defo rmities. IMPRESSION: Significantly limited evaluation secondary to lack of inherent contrast between soft tissue structure s of the abdomen and pelvis. There is marked gastric distention with ingested oral material. No evidence for small bowel obstructi on. Findings may represent gastric outlet obstruction. Consider direct visualization with endoscopy. Very large volume of fecal material noted in the ascending, transverse and proximal descending colon. No evidence of wall thickening. No pneumatosis seen. Findings compatible with constipation. Patchy consolidations of the dependent portions of the bilateral lower lobes and right middle lobe wi th associated airway thickening. Findings are suggestive of multifocal pneumonia or aspiration. Reviewed by: Brayden Cole MD on 09/30/2023 10:55 PM PDT Approved by: Brayden Cole MD on 09/30/2023 10:55 PM PDT Station ID: [id number]
--- NOTE | 2023-09-30 23:25 | PROVIDER PROGRESS NOTE ---
Winder Contort Operator Note - Winder Contort Operator Note Winder Contort Operator Note: 63M with underlying TBI per ED. p/w worsening mentation. noted significant ARF and uremia in setting of urinary obstruction. Obstruction resolved and ED interested in bring patient into the hospital for further management. Hospitalist concerned that uremia / ARF not getting better and nephrology needed to weigh in for input. [facility] does not have urology/ nephrology however ED staff confident that renal function would improve since urinary obstruction resolved with boateng cath. Plan is to recheck renal function especially uremia and if better then the argument that ARF/ uremia is reversible with resolution of urinary obstruction however if ARF/ uremia not better than there will need consideration for transfer or at least nephrology available for consultation and input. Sukhi Morillo DO Internal Medicine [employer] Tele Winder Contort Operator
[2023-09-30] MEDS: cefTRIAXone 1 GM VIAL IVP STA (23:36)
[2023-10-01 00:24] LABS: CALCIUM 8.8 mg/dL (8.5-10.3); POTASSIUM 5.4 mmol/L (3.5-4.5)
[2023-10-01] MEDS ORDERED: DEXTROSE 10% 250 ML IV ONE (00:54)
[2023-10-01] MEDS ORDERED: DEXTROSE 50% ABBOJECT 25 GM/50 ML SYRINGE ONE (00:57)
[2023-10-01] MEDS: SODIUM CHLORIDE 0.9% 1,000 ML IV STA (01:10)
[2023-10-01] MEDS: DEXTROSE 10% 250 ML IV STA (01:13)
[2023-10-01] MEDS: DEXTROSE 50% ABBOJECT 25 GM/50 ML SYRINGE IVP STA ×2 (01:14→01:21)
--- NOTE | 2023-10-01 01:23 | HISTORY & PHYSICAL EXAMINATION ---
Chief Complaint - Chief Complaint Chief Complaint: AMS History of Present Illness - Admitted From Admitted From:: ER - History Obtained From Records Reviewed: Yes History obtained from: Staff, chart Exam Limitations: Virtual exam, pt condition - History of Present Illness HPI Comment/Other: H&P was conducted via video remotely, using Access Cart. [place] in [place] Phys[place] in [place]. DRAFTER CHIEF DESIGN at bedside. Unable to obtain history from pt d/t pt's clinical condition. History obtained from staff, chart. 63 yo M with PMH of CVA with residual L HP, TBI, DM type 2, HTN, HLD, GERD, RA, Depression presented to the ER by family with c/o few day h/o AMS. Family reported that pt did have a fall several days ago and hit his head on garbage can. He has not been eating or drinking well. His BS have been too high and too low. +increased swelling in ankles. No other history available. In the ER, WBC 12.8, Hgb 10.9, Na 129-132, K 5.9-5.4, CR 3.4-3.0, BNP 222, Glc 61, UA: +LE, WBC, bacteria, blood EKG: NSR at 89, RBBB, no STTw changes CT Head: chronic , remote infarct CT Abdo/Pelvis: gastric distension, consider endoscopy, large fecal matter, B/L LL patchy consolidation c/w aspiration Pt was given IVF, D50, D10W, Lokelma, Rocephin in the ER. History - Past Medical History Cardiovascular: reports: Hypertension, High cholesterol, Other Respiratory: reports: None Neuro: reports: None, Head injury Endocrine/Autoimmune: reports: Type 2 diabetes GI: reports: GERD, Chronic diarrhea : reports: None HEENT: reports: Other Psych: reports: Depression, Claustrophobia Musculoskeletal: reports: Osteoarthritis, Rheumatoid arthritis, Hemiplegia, Other Derm: reports: None MRSA Hx?: No - Past Surgical History Ortho: reports: Other Neuro: reports: Other - POLST Patient has POLST: No Meds/Allgy - Home Medications Home Medications: Ambulatory Orders Medication Instructions Recorded Confirmed Omeprazole 20 mg ORAL QDAC 11/26/14 06/15/18 Atorvastatin Calcium 40 mg PO QPM 06/09/15 06/15/18 Aspirin 1 tab PO DAILY 02/13/16 06/15/18 Insulin Glargine,Hum.rec.anlog 140 unit SQ QDBREAKFAST 03/10/16 06/15/18 [Saranya Bunch] Oxybutynin [Ditropan] 5 mg PO BID #15 tablet 02/06/18 06/15/18 Insulin Aspart [Novolog Flexpen] 8 unit SUBQ ACHS PRN 03/01/18 06/15/18 Diphenoxylate/Atropine [Lomotil] 1 each PO QID PRN #10 tablet 04/30/18 06/15/18 Metformin HCl 2 tab PO BID #120 tablet 06/15/18 Blood Sugar Diagnostic [Glucometer 1 each MC DAILY #30 strip 02/21/20 08/10/20 Strips] Lisinopril [Zestril] 20 mg PO DAILY 08/10/20 08/10/20 Tamsulosin [Flomax] 0.4 mg PO DAILY PM 08/10/20 08/10/20 - Allergies Allergies/Adverse Reactions: Allergies Allergy/AdvReac Type Severity Reaction Status Date / Time No Known Drug Allergies Allergy Verified 09/30/23 20:10 Review of Systems - All Other Systems All Other Systems: reports: Other (Unable to obtain d/t patient's clinical condition) Exam - Vital Signs Reviewed Vital Signs: Yes Vital Signs: Vital Signs x48h Temp Pulse Resp BP Pulse Ox O2 Flow Rate 10/01/23 01:00 76 16 125/76 99 10 10/01/23 00:30 76 21 125/79 90 L 10/01/23 00:00 80 22 117/71 86 L 09/30/23 23:30 84 21 125/79 90 L 09/30/23 23:00 89 21 108/86 H 97 09/30/23 22:00 85 19 117/71 93 09/30/23 21:30 89 21 108/86 H 97 09/30/23 20:58 89 21 108/86 H 97 09/30/23 19:50 36.5 C 18 109/71 100 - Physical Exam General Appearance: positive: No acute distress, Other (Sleeping, difficult to arouse) Eyes Bilateral: positive: No scleral icterus ENT: positive: Dry mucous membranes Respiratory: positive: Other (Access cart stethoscope not working; per ER Provider: CTA B/L) Cardiovascular: positive: Other (Access cart stethoscope not working; per ER Provider: RRR, no murmurs) Abdomen: positive: Other (per ER Provider: distended, NT, Soft) Skin: positive: Other (per ER Provider: sacral pressure ulcer) Extremities: positive: Other (per ER Provider: 1+B/L LE edema) Neurologic/Psychiatric: positive: Other (Currently lethargic, not responding to questions. per ER Provider: previously alert, responding to questions, cooperative, L side hemiparesis/chronic) Conclusion/Plan - Problem List (1) AMS (altered mental status) Conclusion/Plan: AMS Decreased PO intake Weakness Acute Renal Failure Hyponatremia Hyperkalemia -Na 129-132, K 5.9-5.4, CR 3.4-3.0, BNP 222 -EKG: NSR at 89, RBBB, no STTw changes -CT Head: chronic , remote infarct -Pt was given IVF, D50, D10W, Lokelma in the ER. -CR improving with IVF -continue IVF -F/U labs Aspiration Pneumonia B/L LL Leukocytosis -WBC 12.8 -CT Abdo/Pelvis: gastric distension, consider endoscopy, large fecal matter, B/L LL patchy consolidation c/w aspiration -Pt was given IVF, Rocephin in the ER. -CXR ordered -O2 support PRN -will need Speech Therapy consult; this is not an order easily found; recommend ordering this in the AM -NPO until seen by NETWORK COMMUNICATIONS ENGINEER -IVF -Unasyn ordered Hypoglycemia DM type 2 -Glc 61 -Pt was given D50, D10W in the ER. -frequent accuchecks until Glc improves -accuchecks, SS Insulin, Hypoglycemic protocol -check Hgba1c Gastric Distension -CT Abdo/Pelvis: gastric distension, consider endoscopy, large fecal matter, B/L LL patchy consolidation c/w aspiration -consider General Surgery consult in AM Constipation -CT Abdo/Pelvis: gastric distension, consider endoscopy, large fecal matter, B/L LL patchy consolidation c/w aspiration -pt NPO -enema ordered UTI -UA: +LE, WBC, bacteria, blood -Pt was given IVF, Rocephin in the ER. -pt on Unasyn -F/U UC Malnutrition -Nutrition consult Sacral Decubitus ulcer -Wound care consult -SW consult CVA with residual L HP TBI -supportive care HTN HLD -med rec not available yet; med rec when available VTE Prophylaxis: Hep SQ Code Status: unable to D/W pt; Full Code ordered for now ~Yahaira Cano MD Hospitalist - Lab Results Lab results reviewed: Yes Fish Bones: 09/30/23 20:38 09/30/23 23:59
--- NOTE | 2023-10-01 01:28 | ED Physician Documentation ---
ED Addendum - Addendum Addendum: 10/01/23 01:20 I received signout/turnover care on this patient from Dr. Greenwood; please see his note for complete H&P. Dr. Green[facility]. The telehealth practitioner expressed concern over some of the abnormal labs, particularly the BUN/creatinine. The upshot of their discussion was to hold patient in the ED until repeat labs show improvement. The results of these repeat labs are pending at the time of sign- out. The repeat labs show improvement in the labs of concern. BUN decreased from 141 to 139, creatinine 3.4 to 3.0, potassium 5.9 to 5.4, sodium 129 to 132. Patient has also had good urine output and I note that the urine in the collection system (Maya catheter) does not appear dark/concentrated. Of note is that blood sugar decreased from 80 to 61. This patient is insulin- dependent diabetic. I ordered D50 IV (1 ampule), which was not immediately available and thus I changed the order to D10 IV. Just as the D10 was being started, ED RN checked fingerstick blood sugar and result was 49. The D10 IV was started, and, fortunately, 1 amp of D50 was able to be procured from the floor (inpatient) and this was given (1 amp D50 IV). It was also around the time of the low blood sugar finding that I was informed by ED RN that the patient was exhibiting hypoxia: mid/lower 80s pulse ox on room air. Supplemental O2 was started (10 L/min NRB) and pulse oximeter adjusted by respiratory therapist; pulse ox rapidly improved to 100%. 10/01/23 01:28 I discussed this case with on-call practitioner for [facility] (Dr. Lewis), who accepts patient to [facility] hospitalist service.
[2023-10-01] MEDS ORDERED: ONDANSETRON ODT 4 MG TABLET TL PRN (01:33)
[2023-10-01] MEDS ORDERED: ACETAMINOPHEN 325 MG TABLET PO PRN (01:33)
[2023-10-01] MEDS ORDERED: ONDANSETRON 4 MG/2 ML VIAL IVP PRN (01:33)
[2023-10-01] MEDS: DEXTROSE 5%-0.9% NACL 1,000 ML IV SCH (03:10)
[2023-10-01] MEDS: AMPICILLIN/SULBACTAM 3 GM in SODIUM CHLORIDE 0.9% MINIBAG 100 ML IV SCH (03:10)
[2023-10-01] MEDS: MINERAL OIL ENEMA 133 ML BOTTLE RC STA (03:33)
[2023-10-01 04:42] LABS: HCT - HEMATOCRIT 29.9 % (42.0-52.0); HGB - HEMOGLOBIN 9.8 g/dL (14.0-18.0); LYMPHOCYTES # (AUTO) 0.4 10^3/uL (1.5-3.5); LYMPHOCYTES % (AUTO) 3.9 %; MEAN CORPUSCULAR HEMOGLOBIN 30.4 pg (27.0-31.0); MEAN CORPUSCULAR HGB CONC 32.8 g/dL (32.0-36.0); MEAN CORPUSCULAR VOLUME 92.9 fL (80.0-94.0); MEAN PLATELET VOLUME 9.9 fL (7.4-11.4); MONOCYTES # (AUTO) 0.3 10^3/uL (0.0-1.0); MONOCYTES % (AUTO) 3.3 %; NEUTROPHILS # (AUTO) 8.8 10^3/uL (1.5-6.6); NEUTROPHILS % (AUTO) 92.5 %; PLT - PLATELET COUNT 189 10^3/uL (130-450); RED BLOOD COUNT 3.22 10^6/uL (4.70-6.10); RED CELL DISTRIBUTION WIDTH 14.5 % (12.0-15.0); WHITE BLOOD COUNT 9.5 x10^3/uL (4.8-10.8)
[2023-10-01 04:59] LABS: MAGNESIUM 1.5 mg/dL (1.7-2.3)
[2023-10-01 05:03] LABS: CALCIUM 8.4 mg/dL (8.5-10.3); CREATININE 2.2 mg/dL (0.6-1.3); POTASSIUM 3.9 mmol/L (3.5-4.5)
[2023-10-01] MEDS ORDERED: INSULIN LISPRO 300 UNIT/3 ML PEN SUBQ SCH (08:00)
[2023-10-01] MEDS ORDERED: cefTRIAXone 1 GM in SODIUM CHLORIDE 0.9% MINIBAG 100 ML IV SCH (09:00)
[2023-10-01] MEDS: SODIUM CHLORIDE FLUSH 0.9% 10 ML SYRINGE IVP PRN (09:31)
[2023-10-01] MEDS: SODIUM CHLORIDE FLUSH 0.9% 10 ML SYRINGE IVP SCH (09:33)
[2023-10-01] MEDS: HEPARIN 5,000 UNIT/ML VIAL SUBQ SCH (09:36)
[2023-10-01 11:02] LABS: ESTIMATED AVERAGE GLUCOSE 120 mg/dL (70-100); HEMOGLOBIN A1c% 5.8 % (4.27-6.07)
[2023-10-01] MEDS: INSULIN REGULAR, HUMAN 300 UNIT/3 ML PEN SUBQ SCH (11:58)
--- NOTE | 2023-10-01 12:08 | XRAY Report ---
PROCEDURE: Chest 1V INDICATIONS: Shortness of breath TECHNIQUE: One view of the chest was acquired. COMPARISON: Chest radiograph 02/21/2020. FINDINGS: Surgical changes and devices: None. Lungs and pleura: No pneumothorax. Low lung volumes with bibasilar atelectasis. There is blunting of the right costophrenic angle which may represent overlapping soft tissues versus small right pleural effusion Mediastinum: Mediastinal contours appear normal. Heart size is normal. Bones and chest wall: No suspicious bony lesions. Gaseous distention of the colon in the left upper abdomen with increased stool. IMPRESSION: Low lung volumes with bibasilar atelectasis. Query small right pleural effusion. Gas and stool distended colon at the splenic flexure. Findings are nonspecific. If there is concern f or abdominal pathology, recommend abdominal radiographs and/or cross-sectional imaging for further ev aluation. Findings are concordant with preliminary interpretation provided by [facility]. Reviewed by: Kayli Mijares MD, PhD on 10/01/2023 11:07 AM PAVAN Approved by: Kayli Mijares MD, PhD on 10/01/2023 11:07 AM PAVAN Station ID: [id number]
--- NOTE | 2023-10-01 13:31 | XRAY Report ---
PROCEDURE: Chest for Line Placement INDICATIONS: NG tube placement TECHNIQUE: One view of the chest was acquired. COMPARISON: Chest radiograph 10/01/2023 at 0216 hours. FINDINGS: Surgical changes and devices: Interval placement of an enteric tube with distal tip projecting over the region of the gastric body. Lungs and pleura: No pleural effusions or pneumothorax. Low lung volumes and bibasilar atelectasis p ersists. Mediastinum: Mediastinal contours appear normal. Heart size is normal. Bones and chest wall: No suspicious bony lesions. Overlying soft tissues appear unremarkable. Redem onstration of gas and stool distended colon. IMPRESSION: Interval placement of an enteric tube with distal tip projecting over the stomach. No other significant interval change since prior radiograph at 0216 hours Reviewed by: Kayli Mijares MD, PhD on 10/01/2023 12:30 PM AKDEMAR Approved by: Kayli Mijares MD, PhD on 10/01/2023 12:30 PM AKDT Station ID: [id number]
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
--- NOTE | 2023-10-01 18:12 | XRAY Report ---
PROCEDURE: Chest for Line Placement INDICATIONS: NG Tube Placement TECHNIQUE: One view of the chest was acquired. COMPARISON: Chest radiograph 10/01/2023 at 1231 hours. FINDINGS: Surgical changes and devices: Enteric tube courses below the diaphragm with distal tip projecting ov er the gastric fundus, side port projecting the region of the gastric body. Lungs and pleura: No pleural effusions or pneumothorax. Bibasilar streaky opacities likely represent ing atelectasis Mediastinum: Mediastinal contours appear normal. Heart size is normal. Bones and chest wall: No suspicious bony lesions. Overlying soft tissues appear unremarkable. IMPRESSION: Enteric tube with distal tip projecting over the stomach. No other interval change since prior radiog raph. Reviewed by: Kayli Mijares MD, PhD on 10/01/2023 5:11 PM PAVAN Approved by: Kayli Mijares MD, PhD on 10/01/2023 5:11 PM PAVAN Station ID: [id number]
[2023-10-02 05:56] LABS: HCT - HEMATOCRIT 27.3 % (42.0-52.0); HGB - HEMOGLOBIN 8.7 g/dL (14.0-18.0); LYMPHOCYTES # (AUTO) 0.4 10^3/uL (1.5-3.5); LYMPHOCYTES % (AUTO) 8.6 %; MEAN CORPUSCULAR HEMOGLOBIN 29.8 pg (27.0-31.0); MEAN CORPUSCULAR HGB CONC 31.9 g/dL (32.0-36.0); MEAN CORPUSCULAR VOLUME 93.5 fL (80.0-94.0); MEAN PLATELET VOLUME 9.4 fL (7.4-11.4); MONOCYTES # (AUTO) 0.3 10^3/uL (0.0-1.0); MONOCYTES % (AUTO) 6.1 %; NEUTROPHILS # (AUTO) 3.8 10^3/uL (1.5-6.6); NEUTROPHILS % (AUTO) 85.1 %; PLT - PLATELET COUNT 157 10^3/uL (130-450); RED BLOOD COUNT 2.92 10^6/uL (4.70-6.10); RED CELL DISTRIBUTION WIDTH 14.6 % (12.0-15.0); WHITE BLOOD COUNT 4.4 x10^3/uL (4.8-10.8)
[2023-10-02 06:10] LABS: ALBUMIN 2.8 g/dL (3.2-5.5); ALBUMIN/GLOBULIN RATIO 1.1 (1.0-2.2); BILIRUBIN,TOTAL 0.4 mg/dL (0.2-1.0); CALCIUM 8.5 mg/dL (8.5-10.3); CREATININE 0.5 mg/dL (0.6-1.3); MAGNESIUM 1.4 mg/dL (1.7-2.3); PHOSPHORUS 1.2 mg/dL (2.5-5.0); TOTAL PROTEIN 5.4 g/dL (6.4-8.9)
--- NOTE | 2023-10-02 09:06 | PHARMACY PROGRESS NOTE ---
- Best Possible Medication History Admit Date and Time: 10/01/23 0133 Processed by: Pharmacy Medications reviewed in ED?: No Medication History completed: Yes Patient Interview: Completed Secondary Source(s): Pharmacy records, Insurance records As the person ultimately responsible for medication therapy, providers are able to order a medication from an existing home medication list in [facility] via the "Reconcile Routine" prior to Confirmation of that medication by user support specialist. Such practice is discouraged except when the physician, in their clinical judgment, deems that a medical need exists for a medication without regard to previous use.
[2023-10-02] MEDS: POTASSIUM PHOSPHATE 15 MMOL in SODIUM CHLORIDE 0.9% 250 ML IV ONE (11:25)
[2023-10-02] MEDS: D5.45NS W/20 MEQ KCL 1,000 ML IV SCH ×2 (18:30→21:00)
[2023-10-02] MEDS: metroNIDAZOLE 500 MG/100 ML 500 MG/100 ML BAG IV SCH (22:51)
[2023-10-03 04:57] LABS: HCT - HEMATOCRIT 29.8 % (42.0-52.0); HGB - HEMOGLOBIN 9.2 g/dL (14.0-18.0); MEAN CORPUSCULAR HEMOGLOBIN 29.5 pg (27.0-31.0); MEAN CORPUSCULAR HGB CONC 30.9 g/dL (32.0-36.0); MEAN CORPUSCULAR VOLUME 95.5 fL (80.0-94.0); MEAN PLATELET VOLUME 9.9 fL (7.4-11.4); RED BLOOD COUNT 3.12 10^6/uL (4.70-6.10); RED CELL DISTRIBUTION WIDTH 14.6 % (12.0-15.0); WHITE BLOOD COUNT 6.3 x10^3/uL (4.8-10.8)
[2023-10-03 05:14] LABS: CALCIUM 8.2 mg/dL (8.5-10.3); CREATININE 0.3 mg/dL (0.6-1.3); MAGNESIUM 1.2 mg/dL (1.7-2.3); PHOSPHORUS 1.2 mg/dL (2.5-5.0)
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
[2023-10-03] MEDS ORDERED: cefTRIAXone 1 GM in SODIUM CHLORIDE 0.9% MINIBAG 100 ML IV SCH (09:00)
[2023-10-03] MEDS: MAGNESIUM SULFATE 2 GRAM 2 GM/50 ML BAG IV ONE (09:28)
[2023-10-03] MEDS: POTASSIUM PHOSPHATE 15 MMOL in SODIUM CHLORIDE 0.9% 250 ML IV ONE (10:05)
[2023-10-03] MEDS: VANCOMYCIN 125 MG CAPSULE PO SCH (10:09)
[2023-10-03] MEDS: INSULIN LISPRO 300 UNIT/3 ML PEN SUBQ SCH ×2 (12:05→12:06)
[2023-10-03] MEDS: SULFAMETH/TRIMETH DS 800/160 MG TABLET PO SCH (17:26)
--- NOTE | 2023-10-03 17:42 | CONSULTATION NOTE ---
Surgery Consult - Admit Date Hospital Admission Date: 10/01/23 - Consult Date Consult Date: 10/03/23 Requesting Provider: Deandre - Home Meds/Allergies Home Medications: Patient History Medication Instructions Recorded Confirmed Omeprazole 20 mg ORAL QDAC 11/26/14 10/02/23 Aspirin 81 mg PO DAILY 02/13/16 10/01/23 Lisinopril [Zestril] 20 mg PO DAILY 08/10/20 10/01/23 Tamsulosin [Flomax] 0.4 mg PO BID 08/10/20 10/02/23 Metformin HCl 500 mg PO DAILY 10/01/23 10/01/23 Rosuvastatin Calcium [Crestor] 20 mg PO QPM 10/01/23 10/02/23 Oxybutynin [Ditropan] 5 mg PO DAILY 10/02/23 10/02/23 Allergies/Adverse Reactions: Allergies Allergy/AdvReac Type Severity Reaction Status Date / Time No Known Drug Allergies Allergy Verified 09/30/23 20:10 - Vital Signs Vital Signs: Last Vital Signs Temp 98.1 F 10/03/23 16:00 Pulse 53 L 10/03/23 16:00 Resp 18 10/03/23 16:00 BP 160/74 H 10/03/23 16:00 Pulse Ox 97 10/03/23 16:00 O2 Flow Rate 2 10/03/23 08:00 Intake & Output: Intake & Output 09/30/23 10/01/23 10/02/23 10/03/23 23:59 23:59 23:59 23:59 Intake Total 3640.000 3082.167 2176.457 Output Total 2675 7870 2500 1290 Balance -2675 -4230.000 582.167 886.457 - Lab Results Result Diagrams: 10/03/23 04:25 10/03/23 04:25 - Consultation Note Consultation Note: General Surgery Consult Note S: I am asked to see Mr. Reynoso in consultation from Dr. Carrera regarding a sacral decubitus ulcer. The patient was admitted to the Medical Hospitalist Service 10/01/23 to manage multiple medical problems including frailty and a recent fall. The patient was found to have pressure changes to the skin overlying the sacrum on admission and I was asked to evaluate the area of concern for possible debridement. O: The patient is frail with severe muscle wasting. He has no ability to lift himself from a sitting position without assistance. The epidermis and dermis over the sacrum is intact. There is a 4 x 4 cm oval of erythema surrounding a central area of dark discoloration that is about 4-6 mm in maximal length. There are no blisters or bullae. There is no palpable subcutaneous air or fluid. There is no drainage or sinus tracts. Assessment: Pressure induced skin injury over the sacrum. As the epidermis and dermis are intact, this would be considered a Stage I injury. The dark discoloration of the central portion of the injured tissue is not an eschar but represents the early stage of partial skin non-viability. Recommendations: 1) Pressure on the sacrum must be avoided to avoid the full thickness loss of skin. 2) The current dressing seems to be working well and should be changed regularly especially if soiling occurs from defecation. 3) Aggressive nutritional support to manage his clinical protein calorie malnutrition should be ongoing. 4) There is no indiction for surgical debridement at this point in time, however he is at high risk for continued skin injury and subsequent skin loss. Debridement may become necessary if there is full thickness skin necrosis. Healing such a wound will be especially challenging. Aron Fay MD, [facility] General Surgery Service
[2023-10-03] MEDS: SODIUM CHLORIDE 0.45% 1,000 ML IV SCH (17:46)
[2023-10-03] MEDS: MIRTAZAPINE 15 MG TABLET PO SCH (21:12)
[2023-10-04 05:51] LABS: CALCIUM 8.2 mg/dL (8.5-10.3); CREATININE 0.3 mg/dL (0.6-1.3); MAGNESIUM 1.3 mg/dL (1.7-2.3); PHOSPHORUS 1.5 mg/dL (2.5-5.0); POTASSIUM 2.9 mmol/L (3.5-4.5)
[2023-10-04] MEDS: MAGNESIUM SULFATE 2 GRAM 2 GM/50 ML BAG IV ONE (09:05)
[2023-10-04] MEDS: POTASSIUM CHLORIDE 20 MEQ TABLET PO SCH (09:17)
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
[2023-10-04] MEDS: POTASSIUM PHOSPHATE 15 MMOL in SODIUM CHLORIDE 0.9% 250 ML IV ONE (11:33)
[2023-10-04] MEDS: MULTIVITAMIN W/MINERALS TABLET PO SCH (11:38)
[2023-10-04] MEDS: AMOXICILLIN 250 MG CAPSULE PO SCH (11:38)
[2023-10-04] MEDS: INSULIN LISPRO 300 UNIT/3 ML PEN SUBQ SCH (21:17)
[2023-10-05] MEDS: INSULIN GLARGINE-YFGN 300 UNIT/3 ML PEN SUBQ SCH (08:14)
[2023-10-05] MEDS ORDERED: MICONAZOLE CREAM 118 ML TUBE TOP SCH (12:00)
[2023-10-05] MEDS: NYSTATIN CREAM 15 GM TUBE TOP SCH (12:40)
[2023-10-06 06:02] LABS: BASOPHILS % (AUTO) 0.3 %; EOSINOPHILS # (AUTO) 0.6 10^3/uL (0.0-0.7); EOSINOPHILS % (AUTO) 6.3 %; LYMPHOCYTES # (AUTO) 1.1 10^3/uL (1.5-3.5); LYMPHOCYTES % (AUTO) 11.2 %; MEAN CORPUSCULAR HEMOGLOBIN 29.9 pg (27.0-31.0); MEAN CORPUSCULAR HGB CONC 31.3 g/dL (32.0-36.0); MEAN CORPUSCULAR VOLUME 95.5 fL (80.0-94.0); MEAN PLATELET VOLUME 10.3 fL (7.4-11.4); MONOCYTES # (AUTO) 0.2 10^3/uL (0.0-1.0); MONOCYTES % (AUTO) 2.5 %; NEUTROPHILS # (AUTO) 7.7 10^3/uL (1.5-6.6); NEUTROPHILS % (AUTO) 79.3 %; PLT - PLATELET COUNT 189 10^3/uL (130-450); RED BLOOD COUNT 3.35 10^6/uL (4.70-6.10); RED CELL DISTRIBUTION WIDTH 14.1 % (12.0-15.0); WHITE BLOOD COUNT 9.7 x10^3/uL (4.8-10.8)
[2023-10-06 06:21] LABS: CALCIUM 8.1 mg/dL (8.5-10.3); CREATININE 0.3 mg/dL (0.6-1.3); POTASSIUM 4.3 mmol/L (3.5-4.5)
[2023-10-06] MEDS: INSULIN GLARGINE-YFGN 300 UNIT/3 ML PEN SUBQ SCH (08:10)
[2023-10-06] MEDS: INSULIN LISPRO 300 UNIT/3 ML PEN SUBQ SCH (08:11)
--- NOTE | 2023-10-06 10:18 | Discharge Plan ---
"Discharge Plan for SNF / [facility] - Discharge Plan And Transition Orders Problem Reviewed?: Yes Disposition: 03 SNF DC/Xfer Condition: Stable Allergies and Adverse Reactions: Allergies Allergy/AdvReac Type Severity Reaction Status Date / Time No Known Drug Allergies Allergy Verified 09/30/23 20:10 - SNF / RESIDENTIAL Transition Orders Admit to (Facility): [facility] Certification Statement: [facility] certify that [facility] is medically necessary on a continuing basis for any of the conditions for which she/he is receiving care during hospitalization. Notify PCP of admission and forward orders to primary provider for signature. Weight on admission and: Weekly Call PCP immediately if weight increases by: 10 kg Other Notification Orders: Call PCP immediately if patient develops dyspnea, chest pain/tightness or edema. House Bowel Program: Yes Additional Bowel Program Orders: If no BM after 2 days, nurse may give M.O.M. 30ml PO PRN and/or ducolax Supp 1 VA and/or LEYDI 250mg P.O., and/or senna 1-2 tabs PO. On day 3 nurse may give repeat above order until residents constipation is resolved. Annual Influenza Vaccine (between Dec 10 and July 09): Yes Two-step PPD per [facility] [phone] or approved exception documents: Yes Oxygen Orders: Maintain oxygen greater than 90%. Medication Orders: PLEASE REFER TO THE DISCHARGE MEDICATION LIST. Insulin Orders?: Yes - Medications New Prescriptions: Amoxicillin [Amoxil] 500 mg PO Q8H 2 Days #12 cap metFORMIN [Glucophage] 1,000 mg PO BIDWM #60 tablet Mirtazapine [Remeron] 15 mg PO QPM #30 tab Vancomycin [Vancocin] 125 mg PO QID 7 Days #28 cap - Diet Type: Geriatric Texture: Regular Liquids: Thin May have monthly special meal: Yes - Therapies | Activity Therapy: Evaluation | Treat if indicated: PT, OT Rehabilitation Potential: Maximize functional status Activity: Activity as Tolerated Follow Up: Follow up with PCP in 3-5 days. Insulin Orders - SNF Basal | Correction | Custom Orders: Diagnosis: Diabetes Initiate hypo and hyperglycemia protocols for BG <70 and BG >375. May check BG PRN for signs/symptoms of dysglycemia. Frequency of BG checks: [AC/Meal/HS] Basal Insulin: [X] Lantus 100 units / ml inject subq as follows: [Lantus 5 units subQ daily] [] Other: [] Correction Insulin: - Select the type of insulin below [Choose: Novolog/Humalog]100 units /ml insulin inject subq per orders indicate below [X] LOW DOSE [] MODERATE DOSE [] MODERATE/HIGH DOSE [] HIGH DOSE GB UNITS GB UNITS GB UNITS GB UNITS 61-140 0 UNITS 61-140 0 UNITS 61-140 0 UNITS 61-140 0 UNITS 141-175 1 UNITS 141-175 1 UNITS 141-175 2 UNITS 141-175 3 UNITS 176-225 2 UNITS 176-225 3 UNITS 176-225 4 UNITS 176-225 5 UNITS 226-275 3 UNITS 226-275 5 UNITS 226-275 6 UNITS 226-275 7 UNITS 276-325 4 UNITS 276-325 7 UNITS 276-325 8 UNITS 276-325 9 UNITS 326-375 5 UNITS 326-375 9 UNITS 326-375 10 UNITS 326-375 11 UNITS >375 CONTACT MD >375 CONTACT MD >375 CONTACT MD >375 CONTACT MD Custom Dosing: [Choose: Novolog/Humalog] 100 units/ml Insulin inject subq as follows: GB Units 61-140 [] Units 141-175 [] Units 176-225 [] Units 226-275 [] Units 276-325 []Units 326-375 [] Units >375 Contact MD"
--- NOTE | 2023-10-06 13:51 | DISCHARGE SUMMARY ---
Discharge Summary Admit Date: 10/01/23 Discharge Date: 10/06/23 Discharging Provider: Cj Weaver Code Status: Attempt Resuscitation Condition at Discharge: Stable Discharge Disposition: [facility] DC/Xfer - DIAGNOSES Discharge Diagnoses with Status of Each Condition: (1) Hypernatremia Assessment/Plan: --Will continue to monitor. Encourage PO intake of fluid. (2) Acute kidney injury Assessment/Plan: --Resolved. (3) UTI (urinary tract infection) Qualifiers: Urinary tract infection type: acute cystitis Hematuria presence: without hematuria Qualified Code(s): N30.00 - Acute cystitis without hematuria Assessment/Plan: --Started on amoxicillin. Urine culture positive for GBS. (4) Malnutrition Assessment/Plan: Mr. Reynoso to undergo swallow evaluation. He meets criteria for malnutrion with a low body weight less than 80% of predicted. He has significant muscle loss. His family states he was eating 3 meals a day. Plan: Trial of mirtazapine 15 mg each evening. (5) Sacral decubitus ulcer Assessment/Plan: Unstagable because of eschar. Continue to keep clean and bandaged. General Surgery did not recommend any surgical intervention. (10) C. Diff Positive Stool Assessment/Plan: --Continue PO Vancomycin. - HPI History of Present Illness: H&P was conducted via video remotely, using Access Cart. Patient is in [place]. Physician is in [place]. 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 Unable to obtain history from pt d/t pt's clinical condition. History obtained from staff, chart. 63 yo M with PMH of CVA with residual L HP, TBI, DM type 2, HTN, HLD, GERD, RA, Depression presented to the ER by family with c/o few day h/o AMS. Family reported that pt did have a fall several days ago and hit his head on garbage can. He has not been eating or drinking well. His BS have been too high and too low. +increased swelling in ankles. No other history available. In the ER, WBC 12.8, Hgb 10.9, Na 129-132, K 5.9-5.4, CR 3.4-3.0, BNP 222, Glc 61, UA: +LE, WBC, bacteria, blood EKG: NSR at 89, RBBB, no STTw changes CT Head: chronic , remote infarct CT Abdo/Pelvis: gastric distension, consider endoscopy, large fecal matter, B/L LL patchy consolidation c/w aspiration Pt was given IVF, D50, D10W, Lokelma, Rocephin in the ER. - HOSPITAL COURSE Hospital Course: Patient is a 63-year-old male who presented to the ED with his family due to altered mental status. Family reported the patient did fall several days ago with a head impact. In the ED CT head was performed which was negative for any intracranial bleeding. CT abdomen/pelvis was also performed which revealed a large amount of fecal matter as well as a left lower lobe patchy consolidation consistent with aspiration. Patient was admitted and started on Unasyn for suspicion of aspiration pneumonia. Although he had formed stool he also tested positive for C. difficile and was started on oral vancomycin. General surgery was consulted due to evidence of gastric distention on his CT abdomen/pelvis. Furthermore they also evaluated his decubitus ulcer. No surgical intervention was recommended and the patient was tolerating a regular diet. Urine culture was obtained which revealed group B strep. His antibiotics were transitioned to amoxicillin Patient also had an JONO which resolved with administration of IV fluids. Upon discharge, patient will be admitted to a long-term facility, [facility]. He will be continued on oral vancomycin for total of 10 days and oral amoxicillin for total of 5 days. He did appear quite frail but had a good appetite. Lantus 5 units in the morning was added to his diabetic regimen of metformin 1000 mg twice daily. - ALLERGIES Allergies/Adverse Reactions: Allergies Allergy/AdvReac Type Severity Reaction Status Date / Time No Known Drug Allergies Allergy Verified 09/30/23 20:10 - MEDICATIONS Home Medications: Ambulatory Orders Medication Instructions Recorded Confirmed Omeprazole 20 mg ORAL QDAC 11/26/14 10/02/23 Aspirin 81 mg PO DAILY 02/13/16 10/01/23 Lisinopril [Zestril] 20 mg PO DAILY 08/10/20 10/01/23 Tamsulosin [Flomax] 0.4 mg PO BID 08/10/20 10/02/23 Rosuvastatin Calcium [Crestor] 20 mg PO QPM 10/01/23 10/02/23 Oxybutynin [Ditropan] 5 mg PO DAILY 10/02/23 10/02/23 Amoxicillin [Amoxil] 500 mg PO Q8H 2 Days #12 cap 10/06/23 Mirtazapine [Remeron] 15 mg PO QPM #30 tab 10/06/23 Vancomycin [Vancocin] 125 mg PO QID 7 Days #28 cap 10/06/23 metFORMIN [Glucophage] 1,000 mg PO BIDWM #60 tablet 10/06/23 - PHYSICAL EXAM AT DISCHARGE General Appearance: positive: No acute distress, Alert Respiratory: positive: Chest non-tender, No respiratory distress, Breath sounds nml Cardiovascular: positive: Regular rate & rhythm, No murmur, No gallop Abdomen: positive: Non-tender, No organomegaly, Nml bowel sounds Extremities: positive: Non-tender Neurologic/Psychiatric: positive: Oriented x3, CN's nml (2-12) - LABS Result Diagrams: 10/06/23 05:40 10/06/23 05:40 - FOLLOW UP Follow Up: Follow up with PCP. - TIME SPENT Time Spent in Discharge (Minutes): 35
[2023-10-06 15:53] VITALS: BP 147/70; O2SAT 93
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
== END 2023-10-06 16:28 | DRG 682 ==
LOC: ED 19:41 → MS2 10-01 01:33
PROVIDERS: ADMIT Internal Medicine; ATTEND Family Medicine
DX: N30.00 Acute cystitis without hematuria (principal); N17.9 Acute kidney failure, unspecified; R33.9 Retention of urine, unspecified; G93.89 Other specified disorders of brain; J69.0 Pneumonitis due to inhalation of food and vomit; R14.0 Abdominal distension (gaseous); E87.0 Hyperosmolality and hypernatremia; E46 Unspecified protein-calorie malnutrition; E11.9 Type 2 diabetes mellitus without complications; Z68.1 Body mass index [BMI] 19.9 or less, adult; R09.02 Hypoxemia; I69.354 Hemiplegia and hemiparesis following cerebral infarction affecting left non-dominant side; E87.1 Hypo-osmolality and hyponatremia; L89.159 Pressure ulcer of sacral region, unspecified stage; G81.94 Hemiplegia, unspecified affecting left nondominant side; S06.9XAS Unspecified intracranial injury with loss of consciousness status unknown, sequela; B96.89 Other specified bacterial agents as the cause of diseases classified elsewhere; N30.90 Cystitis, unspecified without hematuria; B95.1 Streptococcus, group B, as the cause of diseases classified elsewhere; R41.82 Altered mental status, unspecified; Z87.820 Personal history of traumatic brain injury; Z79.4 Long term (current) use of insulin; Z79.84 Long term (current) use of oral hypoglycemic drugs; L27.0 Generalized skin eruption due to drugs and medicaments taken internally; T36.0X5A Adverse effect of penicillins, initial encounter; Y92.230 Patient room in hospital as the place of occurrence of the external cause; I10 Essential (primary) hypertension; E78.5 Hyperlipidemia, unspecified; K21.9 Gastro-esophageal reflux disease without esophagitis; F32.A Depression, unspecified; M06.9 Rheumatoid arthritis, unspecified; R63.0 Anorexia; Z91.81 History of falling; R53.1 Weakness; E87.5 Hyperkalemia; E11.649 Type 2 diabetes mellitus with hypoglycemia without coma; K59.00 Constipation, unspecified; M62.50 Muscle wasting and atrophy, not elsewhere classified, unspecified site; E83.42 Hypomagnesemia; R62.7 Adult failure to thrive; I45.10 Unspecified right bundle-branch block
CPT/HCPCS: 36415; 51702; 70450; 71045; 74176; 80048; 80053; 81001; 82009; 82803; 83036; 83605; 83690; 83735; 83880; 84100; 85025; 85027; 87077; 87086; 87493; 92610; 93005; 96365; 96375; 97162; 97166; 97530; 97535; 99284; 99285; A9270; J1815; J3490; J8499; 81003

== ENCOUNTER 2023-10-06 16:31 | Outpatient (CLI) | payer MEDICARE, MEDICAID | END 2023-10-06 23:59 | disposition home or self-care (01) | LOC: EMS 16:31 | PROVIDERS: ATTEND Family Medicine | DX: R41.0 Disorientation, unspecified (principal); L89.159 Pressure ulcer of sacral region, unspecified stage; Z87.820 Personal history of traumatic brain injury; Z74.01 Bed confinement status | CPT/HCPCS: A0425; A0428 ==

== ENCOUNTER 2023-10-12 08:00 | Outpatient (CLI) | payer MEDICARE, MEDICAID ==
[2023-10-12 21:40] LABS: CALCIUM 8.4 mg/dL (8.5-10.3); CREATININE 0.5 mg/dL (0.6-1.3); POTASSIUM 4.2 mmol/L (3.5-4.5)
== END 2023-10-12 23:59 | disposition home or self-care (01) ==
LOC: LAB.R 08:00
DX: E87.0 Hyperosmolality and hypernatremia (principal)
CPT/HCPCS: 80048

== ENCOUNTER 2023-12-13 08:00 | Outpatient (CLI) | payer MEDICARE, MEDICAID ==
[2023-12-13 17:33] LABS: BILIRUBIN,URINE NEGATIVE (NEGATIVE); GLUCOSE, URINE (UA) NEGATIVE (NEGATIVE); KETONES,URINE (UA) NEGATIVE (NEGATIVE); LEUKOCYTE ESTERASE, URINE LARGE (NEGATIVE); NITRITE,URINE POSITIVE (NEGATIVE); OCCULT BLOOD,URINE SMALL (NEGATIVE); PROTEIN,URINE TRACE mg/dL (NEGATIVE); UROBILINOGEN,URINE 1 (NORMAL) E.U./dL (NORMAL)
[2023-12-13 17:35] LABS: CLARITY,URINE CLOUDY (CLEAR)
[2023-12-13 17:52] LABS: SQUAMOUS EPITHELIAL CELL,UR NONE SEEN (<= Few); WBC,URINE >25 /HPF (0-3)
[2023-12-13 17:53] LABS: BACTERIA,URINE Many /HPF (None Seen)
== END 2023-12-13 23:59 | disposition home or self-care (01) ==
LOC: LAB.R 08:00
PROVIDERS: ATTEND Family Medicine
DX: N30.00 Acute cystitis without hematuria (principal); R33.8 Other retention of urine
CPT/HCPCS: 81001; 87077; 87086; 87181